=== PATIENT | male | born 1940 | race Caucasian/White ===

== ENCOUNTER → 2016-08-26 | Outpatient (CLI) | payer MEDICARE, OTHER ==
[2016-08-26 11:06] LABS: ABSOLUTE EOSINOPHILS # (AUTO) 0.4 10^3/uL (0.0-0.6); ABSOLUTE LYMPHOCYTES (AUTO) 1.8 10^3/uL (0.5-4.7); ABSOLUTE MONOCYTES (AUTO) 0.7 10^3/uL (0.1-1.4); ABSOLUTE NEUT (AUTO) 3.6 10^3/uL (1.7-8.2); BASOPHILS % (AUTO) 0.7 % (0-2); EOSINOPHILS % (AUTO) 6.8 % (0-6); HEMATOCRIT 44.7 % (37.9-51.0); HEMOGLOBIN 14.8 g/dL (13.5-17.0); HGB HCT DIFFERENCE -0.3; LYMPHOCYTES % (AUTO) 27.6 % (13-45); MEAN CORPUSCULAR HEMOGLOBIN 28.2 pg (27.0-33.4); MEAN CORPUSCULAR HGB CONC 33.1 g/dL (32.0-36.0); MEAN CORPUSCULAR VOLUME 85 fl (80-97); MONOCYTES % (AUTO) 10.6 % (3-13); RED BLOOD COUNT 5.24 10^6/uL (4.35-5.55); SEGMENTED NEUTROPHILS % (AUTO) 54.3 % (42-78); WHITE BLOOD COUNT 6.5 10^3/uL (4.0-10.5)
[2016-08-26 11:08] LABS: APPEARANCE,URINE CLEAR; BILIRUBIN,URINE NEGATIVE (NEGATIVE); GLUCOSE, URINE NEGATIVE (NEGATIVE); KETONES,URINE NEGATIVE (NEGATIVE); LEUKOCYTE ESTERASE,URINE NEGATIVE (NEGATIVE); NITRITE,URINE NEGATIVE (NEGATIVE); PROTEIN,URINE NEGATIVE (NEGATIVE); URINE SPECIFIC GRAVITY 1.013; UROBILINOGEN,URINE NEGATIVE mg/dL (<2.0)
[2016-08-26 11:41] LABS: ANION GAP 12 (5-19); BLOOD UREA NITROGEN 18 mg/dL (7-20); CALCIUM 9.8 mg/dL (8.4-10.2); CARBON DIOXIDE 34 mmol/L (22-30); CHLORIDE 100 mmol/L (98-107); CREATININE RESULT 1.04 mg/dL (0.52-1.25); GLUCOSE 103 mg/dL (75-110); POTASSIUM 3.5 mmol/L (3.6-5.0); SODIUM 146.2 mmol/L (137-145)
--- NOTE | 2016-08-26 12:22 | EKG REPORT ---
SEVERITY:- ABNORMAL ECG - SINUS RHYTHM RBBB AND LAFB NONSPECIFIC INFERIOR ST-T INVERSION. : Confirmed by: Oren Rangel MD 26-Aug-2016 12:21:35
== END ==
LOC: OD 09:31
PROVIDERS: ATTEND Orthopaedic Surgery
DX: Z01.810 Encounter for preprocedural cardiovascular examination (principal); Z01.811 Encounter for preprocedural respiratory examination; Z01.818 Encounter for other preprocedural examination; Z79.899 Other long term (current) drug therapy; M65.839 Other synovitis and tenosynovitis, unspecified forearm
CPT/HCPCS: 36415; 71020; 80048; 81001; 85025; 93005; 93010

== ENCOUNTER → 2016-11-20 | Outpatient (CLI) | payer MEDICARE, OTHER | LOC: RAD 15:34 | PROVIDERS: ATTEND Student in an Organized Health Care Education/Training Program | DX: S09.90XD Unspecified injury of head, subsequent encounter (principal); X58.XXXD Exposure to other specified factors, subsequent encounter | CPT/HCPCS: 70450 ==

== ENCOUNTER 2018-07-09 12:31 | Emergency (ER) | payer OTHER, MEDICARE ==
[2018-07-09 12:52] VITALS: BP 148/74
--- NOTE | 2018-07-09 13:23 | ER Document Report ---
ED Medical Screen (RME) - General Chief Complaint: Headache Stated Complaint: PAIN IN THE BRAIN Time Seen by Provider: 07/09/18 13:21 Notes: 81 years old male with a history of CVA presents today with 2 episodes of sensation of electric shock in the left side of the brain. Had some difficulty in walking. No numbness tingling sensation over the upper extremities or lower extremity. Denies any neck pain neck stiffness. He is on pacemaker No obvious focal neurological deficit noted TRAVEL OUTSIDE OF THE [place] IN LAST 30 DAYS: No - Related Data Allergies/Adverse Reactions: losartan [Losartan] Adverse Reaction (Verified 07/09/18 13:19) Past Medical History - Social History Chew tobacco use (# tins/day): No Frequency of alcohol use: None Drug Abuse: None - Past Medical History Cardiac Medical History: Reports: Hx Atrial Fibrillation, Hx Coronary Artery Disease, Hx Hypercholesterolemia, Hx Hypertension Denies: Hx Heart Attack Pulmonary Medical History: Denies: Hx Asthma, Hx Bronchitis, Hx COPD, Hx Pneumonia, Hx Tuberculosis Neurological Medical History: Reports: Hx Cerebrovascular Accident - WEAKNESS LEFT SIDE. Denies: Hx Seizures Endocrine Medical History: Reports: Hx Diabetes Mellitus Type 1, Hx Diabetes Mellitus Type 2, Hx Hypothyroidism Renal/ Medical History: Denies: Hx Peritoneal Dialysis GI Medical History: Reports: Hx Hiatal Hernia. Denies: Hx Hepatitis, Hx Ulcer Musculoskeltal Medical History: Reports Hx Arthritis - GENERALIZED Psychiatric Medical History: Reports: Hx Depression Infectious Medical History: Denies: Hx Hepatitis Past Surgical History: Reports: Hx Open Heart Surgery - [place], Hx Orthopedic Surgery - B knee replacements, Hx Tonsillectomy. Denies: Hx Pacemaker - Immunizations Hx Diphtheria, Pertussis, Tetanus Vaccination: Yes Physical Exam - Vital signs Vitals: Temp Pulse Resp BP Pulse Ox 97.6 F 60 18 148/74 H 96 07/09/18 12:50 07/09/18 12:50 07/09/18 12:50 07/09/18 12:50 07/09/18 12:50 Course - Vital Signs Vital signs: Temp Pulse Resp BP Pulse Ox 97.6 F 60 18 148/74 H 96 07/09/18 12:50 07/09/18 12:50 07/09/18 12:50 07/09/18 12:50 07/09/18 12:50 Doctor's Discharge - Discharge Referrals: RICH NORRIS, [Primary Care Provider] - Follow up as needed
[2018-07-09 13:58] LABS: ABSOLUTE BASOPHILS # (AUTO) 0.1 10^3/uL (0.0-0.2); ABSOLUTE EOSINOPHILS # (AUTO) 0.3 10^3/uL (0.0-0.6); ABSOLUTE LYMPHOCYTES (AUTO) 1.6 10^3/uL (0.5-4.7); ABSOLUTE MONOCYTES (AUTO) 0.6 10^3/uL (0.1-1.4); ABSOLUTE NEUT (AUTO) 4.4 10^3/uL (1.7-8.2); BASOPHILS % (AUTO) 0.8 % (0-2); EOSINOPHILS % (AUTO) 3.9 % (0-6); HEMATOCRIT 45.7 % (37.9-51.0); HEMOGLOBIN 15.4 g/dL (13.5-17.0); LYMPHOCYTES % (AUTO) 22.8 % (13-45); MEAN CORPUSCULAR HEMOGLOBIN 28.1 pg (27.0-33.4); MEAN CORPUSCULAR HGB CONC 33.8 g/dL (32.0-36.0); MEAN CORPUSCULAR VOLUME 83 fl (80-97); MONOCYTES % (AUTO) 8.2 % (3-13); PLATELET COUNT 137 10^3/uL (150-450); RED BLOOD COUNT 5.49 10^6/uL (4.35-5.55); RED CELL DISTRIBUTION WIDTH 15.6 % (11.5-14.0); SEGMENTED NEUTROPHILS % (AUTO) 64.3 % (42-78); TOTAL CELLS COUNTED % (AUTO) 100 %; WHITE BLOOD COUNT 6.8 10^3/uL (4.0-10.5)
[2018-07-09 14:04] LABS: INTERNATIONAL RATION (INR) 0.95; PROTHROMBIN TIME 13.2 SEC (11.4-15.4)
--- NOTE | 2018-07-09 14:07 | RADIOLOGY REPORT (SQ) ---
EXAM DESCRIPTION: CT HEAD WITHOUT COMPLETED DATE/TIME: 07/09/2018 1:58 pm REASON FOR STUDY: Headache possible stroke COMPARISON: 11/20/2016 TECHNIQUE: Axial images acquired through the brain without intravenous contrast. Images reviewed wi th bone, brain and subdural windows. Additional sagittal and coronal reconstructions were generated. Images stored on PACS. All CT scanners at this facility use dose modulation, iterative reconstruction, and/or weight based d osing when appropriate to reduce radiation dose to as low as reasonably achievable (ALARA). [facility]: Dose Right [facility]: CareDose [facility]: Dose Right [facility]: Teradose 4D [facility]: [employer] RADIATION DOSE: CT Rad equipment meets quality standard of care and radiation dose reduction techniq ues were employed. CTDIvol: 53.2 mGy. DLP: 1044 mGy-cm. mGy. LIMITATIONS: None. FINDINGS: VENTRICLES: Prominent. CEREBRUM: No masses. No hemorrhage. No midline shift. Areas of low density in the white matter mos t likely due to chronic micro-vascular ischemic change. No evidence for acute infarction. CEREBELLUM: No masses. No hemorrhage. No alteration of density. No evidence for acute infarction. EXTRAAXIAL SPACES: Mild age-related involutional change. No fluid collections. No masses. ORBITS AND GLOBE: No intra- or extraconal masses. Normal contour of globe without masses. CALVARIUM: No fracture. PARANASAL SINUSES: No fluid or mucosal thickening. SOFT TISSUES: No mass or hematoma. OTHER: No other significant finding. IMPRESSION: MILD CHRONIC CHANGES OF ATROPHY AND MICROVASCULAR ISCHEMIA. NO ACUTE PROCESS. EVIDENCE OF ACUTE STROKE: NO. TECHNICAL DOCUMENTATION: JOB ID: [id number] Quality ID # [id number]: Final reports with documentation of one or more dose reduction techniques (e.g., Au tomated exposure control, adjustment of the mA and/or kV according to patient size, use of iterative reconstruction technique) 2010 [employer]- All Rights Reserved Reading location - IP/workstation name: [email or web address]
[2018-07-09 14:14] LABS: ALANINE AMINOTRANSFERASE 20 U/L (21-72); ALBUMIN 4.3 g/dL (3.5-5.0); ALKALINE PHOSPHATASE 73 U/L (38-126); ANION GAP 11 (5-19); ASPARTATE AMINO TRANSFERASE 21 U/L (17-59); BILIRUBIN,DIRECT 0.2 mg/dL (0.0-0.4); BILIRUBIN,TOTAL 0.6 mg/dL (0.2-1.3); BLOOD UREA NITROGEN 16 mg/dL (7-20); CARBON DIOXIDE 35 mmol/L (22-30); CHLORIDE 98 mmol/L (98-107); GLUCOSE 165 mg/dL (75-110); POTASSIUM 3.6 mmol/L (3.6-5.0); SODIUM 144.4 mmol/L (137-145); TOTAL PROTEIN 7.7 g/dL (6.3-8.2)
--- NOTE | 2018-07-09 14:36 | ER Document Report ---
ED General - General Chief Complaint: Headache Stated Complaint: PAIN IN THE BRAIN Time Seen by Provider: 07/09/18 13:21 Mode of Arrival: Ambulatory Information source: Patient TRAVEL OUTSIDE OF THE [place] IN LAST 30 DAYS: No - HPI Patient complains to provider of: Electric shock sensation to head Onset/Duration: Sudden Associated symptoms: None Exacerbated by: Denies Relieved by: Denies Notes: Patient is a 78-year-old male presenting to the emergency room today complaining of electric shock sensation to the brain that occurred twice over the past week, he states it felt like when he was accidentally defibrillated in the past, however it started the top of his head and shot down the right side of his face, afterwards he states he feels slightly groggy but denies any other symptoms, he has no chest pain or shortness of breath and no symptoms from the neck down, he denies any vision changes, no nausea or vomiting, and denies any neck pain - Related Data Allergies/Adverse Reactions: losartan [Losartan] Adverse Reaction (Verified 07/09/18 13:19) Past Medical History - General Information source: Patient - Social History Smoking Status: Former Smoker Chew tobacco use (# tins/day): No Frequency of alcohol use: None Drug Abuse: None Family History: Reviewed & Not Pertinent Patient has suicidal ideation: No Patient has homicidal ideation: No - Past Medical History Cardiac Medical History: Reports: Hx Atrial Fibrillation, Hx Coronary Artery Disease, Hx Hypercholesterolemia, Hx Hypertension Denies: Hx Heart Attack Pulmonary Medical History: Denies: Hx Asthma, Hx Bronchitis, Hx COPD, Hx Pneumonia, Hx Tuberculosis Neurological Medical History: Reports: Hx Cerebrovascular Accident - WEAKNESS LEFT SIDE. Denies: Hx Seizures Endocrine Medical History: Reports: Hx Diabetes Mellitus Type 1, Hx Diabetes Mellitus Type 2, Hx Hypothyroidism Renal/ Medical History: Denies: Hx Peritoneal Dialysis GI Medical History: Reports: Hx Hiatal Hernia. Denies: Hx Hepatitis, Hx Ulcer Musculoskeletal Medical History: Reports Hx Arthritis - GENERALIZED Psychiatric Medical History: Reports: Hx Depression Infectious Medical History: Denies: Hx Hepatitis Past Surgical History: Reports: Hx Open Heart Surgery - [place], Hx Orthopedic Surgery - B knee replacements, Hx Tonsillectomy. Denies: Hx Pacemaker - Immunizations Hx Diphtheria, Pertussis, Tetanus Vaccination: Yes Hx Pneumococcal Vaccination: 04/16/12 Review of Systems - Review of Systems Constitutional: No symptoms reported EENT: No symptoms reported Cardiovascular: No symptoms reported Respiratory: No symptoms reported Gastrointestinal: No symptoms reported Genitourinary: No symptoms reported Male Genitourinary: No symptoms reported Musculoskeletal: No symptoms reported Skin: No symptoms reported Hematologic/Lymphatic: No symptoms reported Neurological/Psychological: See HPI -: Yes All other systems reviewed and negative Physical Exam - Vital signs Vitals: Temp Pulse Resp BP Pulse Ox 97.6 F 60 18 148/74 H 96 07/09/18 12:50 07/09/18 12:50 07/09/18 12:50 07/09/18 12:50 07/09/18 12:50 Interpretation: Normal - General General appearance: Appears well, Alert - HEENT Head: Normocephalic, Atraumatic Eyes: Normal Pupils: PERRL - Respiratory Respiratory status: No respiratory distress Chest status: Nontender Breath sounds: Normal Chest palpation: Normal - Cardiovascular Rhythm: Regular Heart sounds: Normal auscultation Murmur: No - Abdominal Inspection: Normal Distension: No distension Bowel sounds: Normal Tenderness: Nontender Organomegaly: No organomegaly - Back Back: Normal, Nontender - Extremities General upper extremity: Normal inspection, Nontender, Normal color, Normal ROM , Normal temperature General lower extremity: Normal inspection, Nontender, Normal color, Normal ROM , Normal temperature, Normal weight bearing. No: Taylor's sign - Neurological Neuro grossly intact: Yes Cognition: Normal Orientation: AAOx4 [place]hoe Coma Scale Eye Opening: Spontaneous [place] Coma Scale Verbal: Oriented [place] Coma Scale Motor: Obeys Commands Ivanhoe Coma Scale Total: 15 Speech: Normal Motor strength normal: LUE, RUE, LLE, RLE Sensory: Normal - Psychological Associated symptoms: Normal affect, Normal mood - Skin Skin Temperature: Warm Skin Moisture: Dry Skin Color: Normal Course - Re-evaluation Re-evalutation: 07/09/18 15:19 Lab and imaging findings discussed at bedside which are unremarkable, I did add an ESR and CRP and a and inform the patient that I would call him with those results later if they were grossly abnormal and required immediate attention, otherwise patient was discharged with instructions for follow-up and advised to return if any additional concerns, patient acknowledges understanding and agreement with this plan - Vital Signs Vital signs: Temp Pulse Resp BP Pulse Ox 97.6 F 60 18 148/74 H 96 07/09/18 12:50 07/09/18 12:50 07/09/18 12:50 07/09/18 12:50 07/09/18 12:50 - Laboratory Result Diagrams: 07/09/18 13:46 07/09/18 13:46 Laboratory results interpreted by me: 07/09/18 07/09/18 07/09/18 13:46 13:46 13:46 RDW 15.6 H Plt Count 137 L Carbon Dioxide 35 H Glucose 165 H ALT 20 L C-Reactive Protein 18.1 H - Diagnostic Test Radiology reviewed: Image reviewed, Reports reviewed Discharge - Discharge Clinical Impression: Head pain Condition: Stable Disposition: HOME, SELF-CARE Instructions: Neuralgia ([facility]), Neurologist, Trigeminal Neuralgia ([facility]) Additional Instructions: Follow up with your primary care provider and a neurologist in one to 2 days. Return to the emergency room immediately if symptoms worsen or any additional concerns. Referrals: RICH NORRIS, [Primary Care Provider] - Follow up as needed
== END 2018-07-09 15:29 | disposition home or self-care (01) ==
LOC: ER 12:31
DX: R51 Headache (principal); Z87.891 Personal history of nicotine dependence; I25.10 Atherosclerotic heart disease of native coronary artery without angina pectoris; I10 Essential (primary) hypertension; E11.9 Type 2 diabetes mellitus without complications
CPT/HCPCS: 36415; 70450; 80053; 85025; 85610; 85652; 86140; 99284

== ENCOUNTER 2018-08-26 16:31 | Emergency (ER) | payer OTHER, MEDICARE ==
[2018-08-26] MEDS ORDERED: OXYMETAZOLINE HCL 0.05% NASAL SPRAY 15 ML BOTTLE NASL ONE (17:10)
--- NOTE | 2018-08-26 17:12 | ER Document Report ---
ED Medical Screen (RME) - General Chief Complaint: Nose Bleed Stated Complaint: NOSE BLEED Time Seen by Provider: 08/26/18 17:05 Mode of Arrival: Wheelchair Information source: Patient Notes: Patient is a 78-year-old male who presents with chief complaint of a nosebleed. Patient reports bleeding to the right nare started several hours prior to arrival. He denies any trauma to the area. He states he takes a baby aspirin 81 mg daily but denies any other blood thinning medications. Denies history of nosebleeds other than as a child. He does state that his blood pressure has been elevated lately, he saw his doctor this morning and had significantly elevated blood pressure. Patient currently has a cotton ball in the right nare. There is a small trickle of blood to the patient's posterior pharynx. Patient is blood pressure is currently elevated at 188 systolic. I have greeted and performed a rapid initial assessment of this patient. A comprehensive ED assessment and evaluation of the patient, analysis of test results and completion of the medical decision making process will be conducted by additional ED providers. Dictation of this chart was performed using voice recognition software; therefore, there may be some unintended grammatical errors. TRAVEL OUTSIDE OF THE [place] IN LAST 30 DAYS: No - Related Data Allergies/Adverse Reactions: amlodipine Allergy (Verified 08/26/18 17:03) losartan [Losartan] Adverse Reaction (Verified 08/26/18 16:38) Past Medical History - Social History Frequency of alcohol use: None Drug Abuse: None - Past Medical History Cardiac Medical History: Reports: Hx Atrial Fibrillation, Hx Coronary Artery Disease, Hx Hypercholesterolemia, Hx Hypertension Denies: Hx Heart Attack Pulmonary Medical History: Denies: Hx Asthma, Hx Bronchitis, Hx COPD, Hx Pneumonia, Hx Tuberculosis Neurological Medical History: Reports: Hx Cerebrovascular Accident - WEAKNESS LEFT SIDE. Denies: Hx Seizures Endocrine Medical History: Reports: Hx Diabetes Mellitus Type 1, Hx Diabetes Mellitus Type 2, Hx Hypothyroidism Renal/ Medical History: Denies: Hx Peritoneal Dialysis GI Medical History: Reports: Hx Hiatal Hernia. Denies: Hx Hepatitis, Hx Ulcer Musculoskeltal Medical History: Reports Hx Arthritis - GENERALIZED Psychiatric Medical History: Reports: Hx Depression Infectious Medical History: Denies: Hx Hepatitis Past Surgical History: Reports: Hx Appendectomy, Hx Cardiac Surgery - pacemaker, Hx Open Heart Surgery - [place], Hx Orthopedic Surgery - B knee replacements, Hx Tonsillectomy. Denies: Hx Pacemaker - Immunizations Hx Diphtheria, Pertussis, Tetanus Vaccination: Yes Physical Exam - Vital signs Vitals: Temp Pulse Resp BP Pulse Ox 97.7 F 62 18 188/90 H 96 08/26/18 16:46 08/26/18 16:46 08/26/18 16:46 08/26/18 16:46 08/26/18 16:46 Course - Vital Signs Vital signs: Temp Pulse Resp BP Pulse Ox 97.7 F 62 18 188/90 H 96 08/26/18 16:46 08/26/18 16:46 08/26/18 16:46 08/26/18 16:46 08/26/18 16:46 Doctor's Discharge - Discharge Referrals: RICH NORRIS DO [Primary Care Provider] - Follow up as needed
[2018-08-26] MEDS ORDERED: HYDROCHLOROTHIAZIDE 25 MG TABLET PO ONE (18:14)
[2018-08-26] MEDS ORDERED: LOSARTAN POTASSIUM 25 MG TABLET PO ONE (19:51)
--- NOTE | 2018-08-26 20:28 | ER Document Report ---
ED General - General Mode of Arrival: Wheelchair Information source: Patient TRAVEL OUTSIDE OF THE [place] IN LAST 30 DAYS: No - General Chief Complaint: Nose Bleed Stated Complaint: NOSE BLEED Time Seen by Provider: 08/26/18 17:05 Notes: Patient is a 78 year old male with HTN, hyperlipidemia, Afib, a pacemaker defibrillator, type 2 diabetes, and a history of a stroke presents to the emergency department complaining of a nosebleed. Patient states he began to have copious amounts of blood coming from his right nostril today and a minimal amount coming from his left nostril and he proceeded to place a cotton ball in his right nostril. He states he has not had a nosebleed since he was in high school. Patient also complains of a headache which he attributes to his elevated blood pressure further stating he has not had is Losartan HCTZ in a few days. Patient states the headache was onset a few weeks ago and is getting better. Patient denies blurry vision, numbness or tingling sensations, difficulty swallowing or difficulty seeing. Patient is on 81 mg of aspirin. ([facility] JO CHURCHILL) - Related Data Allergies/Adverse Reactions: amlodipine Allergy (Verified 08/26/18 17:03) losartan [Losartan] Adverse Reaction (Verified 08/26/18 16:38) Past Medical History - General Information source: Patient - Social History Smoking Status: Never Smoker Frequency of alcohol use: None Drug Abuse: None Family History: Reviewed & Not Pertinent Patient has suicidal ideation: No Patient has homicidal ideation: No - Past Medical History Cardiac Medical History: Reports: Hx Atrial Fibrillation, Hx Coronary Artery Disease, Hx Hypercholesterolemia, Hx Hypertension Neurological Medical History: Reports: Hx Cerebrovascular Accident - WEAKNESS LEFT SIDE Endocrine Medical History: Reports: Hx Diabetes Mellitus Type 1, Hx Diabetes Mellitus Type 2, Hx Hypothyroidism GI Medical History: Reports: Hx Hiatal Hernia Musculoskeletal Medical History: Reports Hx Arthritis - GENERALIZED Psychiatric Medical History: Reports: Hx Depression Past Surgical History: Reports: Hx Appendectomy, Hx Cardiac Surgery - pacemaker, Hx Open Heart Surgery - [place], Hx Orthopedic Surgery - B knee replacements, Hx Tonsillectomy - Immunizations Hx Diphtheria, Pertussis, Tetanus Vaccination: Yes Hx Pneumococcal Vaccination: 04/16/12 Review of Systems - Review of Systems Constitutional: No symptoms reported EENT: See HPI Cardiovascular: No symptoms reported Respiratory: No symptoms reported Gastrointestinal: No symptoms reported Genitourinary: No symptoms reported Male Genitourinary: No symptoms reported Musculoskeletal: No symptoms reported Skin: No symptoms reported Hematologic/Lymphatic: See HPI Neurological/Psychological: No symptoms reported -: Yes All other systems reviewed and negative Physical Exam - Vital signs Vitals: Temp Pulse Resp BP Pulse Ox 97.7 F 62 18 188/90 H 96 08/26/18 16:46 08/26/18 16:46 08/26/18 16:46 08/26/18 16:46 08/26/18 16:46 - Notes Notes: GENERAL: Alert, interacts well. No acute distress. HEAD: Normocephalic, atraumatic. EYES: Pupils equal, round, and reactive to light. Extraocular movements intact. ENT: Oral mucosa moist, tongue midline. Small traces of blood in the left nostril, no active bleeding. Red blood and a cotton ball in the right nostril, no signs of active bleeding. Small amount of swelling to the right nostril. No signs of blood in the posterior oropharynx. NECK: Full range of motion. Supple. Trachea midline. LUNGS: Clear to auscultation bilaterally, no wheezes, rales, or rhonchi. No res piratory distress. HEART: Regular rate and rhythm. No murmurs, gallops, or rubs. ABDOMEN: Soft, non-tender. Non-distended. Bowel sounds present in all 4 quadrants. EXTREMITIES: Moves all 4 extremities spontaneously. NEUROLOGICAL: Alert and oriented x3. Normal speech. PSYCH: Normal affect, normal mood. SKIN: Warm, dry, normal turgor. No rashes or lesions noted. (MARY JO CHURCHILL) Course - Re-evaluation Re-evalutation: 08/26/18 20:28 Cotton ball was removed from the nose, there is no active bleeding, clot was removed from the nose as well, very small bump was noted within the right nostril and the nasal mucosa with in half a centimeter of the opening to the nostril. No active bleeding was noted. Patient was observed for the next 30 minutes, there continues to be no bleeding. No need for other intervention. Patient is discharged to home. (CHIDI CHA) - Vital Signs Vital signs: Temp Pulse Resp BP Pulse Ox 97.9 F 60 18 197/100 H 97 08/26/18 19:37 08/26/18 19:37 08/26/18 19:37 08/26/18 19:37 08/26/18 19:37 Discharge - Discharge Clinical Impression: Epistaxis Condition: Stable Disposition: HOME, SELF-CARE Additional Instructions: Nosebleed Instructions There is a significant chance of re-bleeding following a nosebleed. Proper care makes this less likely. Do not touch the nose for 24 hours. Do not blow the nose forcefully for one week. After 24 hours, gently apply Vaseline ointment to both nostrils with the tip of a finger, three times a day, for one week. It's normal to have a bloody mucous discharge for a few days. If active bleeding recurs, blow all the blood from the nose, then sit quietly and pinch the nose as firmly as possible for 15 minutes. If this does not stop the bleeding, return for further care. Humidity in the bedroom, and petroleum jelly applied to the nostrils at night may help. Referrals: RICH NORRIS, [Primary Care Provider] - Follow up as needed Scribe Attestation: 08/27/18 06:33 I personally performed the services described in the documentation, reviewed and edited the documentation which was dictated to the scribe in my presence, and it accurately records my words and actions. (CHIDI CHA) Scribe Documentation - Scribe Written by Arnaud:: Arnaud Stewart, 08/26/2017 20:52 acting as scribe for :: Carlos
[2018-08-26 20:41] VITALS: BP 197/100
== END 2018-08-26 20:41 | disposition home or self-care (01) ==
LOC: ER 16:31
DX: R04.0 Epistaxis (principal); I10 Essential (primary) hypertension; I48.91 Unspecified atrial fibrillation; E11.9 Type 2 diabetes mellitus without complications; Z95.810 Presence of automatic (implantable) cardiac defibrillator; Z96.653 Presence of artificial knee joint, bilateral; I69.354 Hemiplegia and hemiparesis following cerebral infarction affecting left non-dominant side
CPT/HCPCS: 99283

== ENCOUNTER 2018-08-27 15:19 | Observation (INO) | payer OTHER, MEDICARE ==
[2018-08-27 15:43] LABS: ABSOLUTE BASOPHILS # (AUTO) 0.1 10^3/uL (0.0-0.2); ABSOLUTE EOSINOPHILS # (AUTO) 0.3 10^3/uL (0.0-0.6); ABSOLUTE LYMPHOCYTES (AUTO) 2.1 10^3/uL (0.5-4.7); ABSOLUTE MONOCYTES (AUTO) 0.8 10^3/uL (0.1-1.4); ABSOLUTE NEUT (AUTO) 3.4 10^3/uL (1.7-8.2); BASOPHILS % (AUTO) 0.8 % (0-2); HEMATOCRIT 44.2 % (37.9-51.0); HEMOGLOBIN 14.9 g/dL (13.5-17.0); LYMPHOCYTES % (AUTO) 32.1 % (13-45); MEAN CORPUSCULAR HGB CONC 33.6 g/dL (32.0-36.0); MEAN CORPUSCULAR VOLUME 83 fl (80-97); MONOCYTES % (AUTO) 11.8 % (3-13); PLATELET COUNT 132 10^3/uL (150-450); RED BLOOD COUNT 5.31 10^6/uL (4.35-5.55); RED CELL DISTRIBUTION WIDTH 15.3 % (11.5-14.0); SEGMENTED NEUTROPHILS % (AUTO) 51.3 % (42-78); TOTAL CELLS COUNTED % (AUTO) 100 %; WHITE BLOOD COUNT 6.5 10^3/uL (4.0-10.5)
[2018-08-27 15:47] LABS: INTERNATIONAL RATION (INR) 0.94; PROTHROMBIN TIME 13.1 SEC (11.4-15.4)
[2018-08-27 15:48] LABS: PARTIAL THROMBOPLASTIN TIME 27.9 SEC (23.5-35.8)
--- NOTE | 2018-08-27 15:49 | RADIOLOGY REPORT (SQ) ---
EXAM DESCRIPTION: CT HEAD WITHOUT COMPLETED DATE/TIME: 08/27/2018 3:36 pm REASON FOR STUDY: t1 stroke alert COMPARISON: 07/09/2018. TECHNIQUE: Axial images acquired through the brain without intravenous contrast. Images reviewed wi th bone, brain and subdural windows. Additional sagittal and coronal reconstructions were generated. Images stored on PACS. All CT scanners at this facility use dose modulation, iterative reconstruction, and/or weight based d osing when appropriate to reduce radiation dose to as low as reasonably achievable (ALARA). [facility]: Dose Right [facility]: CareDose [facility]: Dose Right [facility]: Teradose 4D [facility]: [employer] RADIATION DOSE: CT Rad equipment meets quality standard of care and radiation dose reduction techniq ues were employed. CTDIvol: 53.2 mGy. DLP: 1044 mGy-cm. mGy. LIMITATIONS: None. FINDINGS: VENTRICLES: Prominent. CEREBRUM: No masses. No hemorrhage. No midline shift. Areas of low density in the white matter mos t likely due to chronic micro-vascular ischemic change. No evidence for acute infarction. CEREBELLUM: No masses. No hemorrhage. No alteration of density. No evidence for acute infarction. EXTRAAXIAL SPACES: Mild age-related involutional change. No fluid collections. No masses. ORBITS AND GLOBE: No intra- or extraconal masses. Normal contour of globe without masses. CALVARIUM: No fracture. PARANASAL SINUSES: No fluid or mucosal thickening. SOFT TISSUES: No mass or hematoma. OTHER: No other significant finding. IMPRESSION: MILD CHRONIC CHANGES OF ATROPHY AND MICROVASCULAR ISCHEMIA. NO ACUTE PROCESS. EVIDENCE OF ACUTE STROKE: NO. COMMENT: Pertinent positive or negative findings of the imaging study reported as a CRITICAL EXAM patrick LOVELACE DO at15:41 on 08/27/2018. Category of Critical Exam: STROKE ALERT. TECHNICAL DOCUMENTATION: JOB ID: [id number] Quality ID # [id number]: Final reports with documentation of one or more dose reduction techniques (e.g., Au tomated exposure control, adjustment of the mA and/or kV according to patient size, use of iterative reconstruction technique) 2010 [employer]- All Rights Reserved Reading location - IP/workstation name: [facility]
--- NOTE | 2018-08-27 15:50 | RADIOLOGY REPORT (SQ) ---
EXAM DESCRIPTION: CHEST SINGLE VIEW COMPLETED DATE/TIME: 08/27/2018 3:38 pm REASON FOR STUDY: t1 stroke alert COMPARISON: 08/26/2016. NUMBER OF VIEWS: One view. TECHNIQUE: Single frontal radiographic view of the chest acquired. LIMITATIONS: None. FINDINGS: LUNGS AND PLEURA: No opacities, masses or pneumothorax. No pleural effusion. MEDIASTINUM AND HILAR STRUCTURES: No masses. Contour normal. HEART AND VASCULAR STRUCTURES: Heart enlarged without failure. Normal vasculature. BONES: No acute findings. HARDWARE: Pacemaker. OTHER: No other significant finding. IMPRESSION: HEART ENLARGED WITHOUT FAILURE. NO OTHER SIGNIFICANT RADIOGRAPHIC FINDING IN THE CHEST. TECHNICAL DOCUMENTATION: JOB ID: [id number] [employer]- All Rights Reserved Reading location - IP/workstation name: [facility]
[2018-08-27] MEDS ORDERED: ASPIRIN 81 MG TABLET, CHEWABLE PO ONE (16:03)
--- NOTE | 2018-08-27 16:06 | ER Document Report ---
ED General - General Chief Complaint: S/S of Possible Stroke Stated Complaint: POSSIBLE STROKE Time Seen by Provider: 08/27/18 15:34 Mode of Arrival: Ambulatory Information source: Patient Notes: 78-year-old male with atrial fibrillation, SVT, diabetes, hyperlipidemia, hypertension presents via EMS with complaint of slurred speech. is at the bedside and states that approximately 5 hours prior to arrival they were buying a car when the patient certainly had an acute onset of slurred speech. She reports that the patient "sounded drunk". Patient slurred speech lasted approximately 5 hours and resolved just prior to arrival. Patient reports previous "mini stroke in the past. He denies any recent illness, chest pain, shortness of breath. TRAVEL OUTSIDE OF THE [place] IN LAST 30 DAYS: No - HPI Onset: Just prior to arrival Onset/Duration: Sudden, Gone Quality of pain: No pain Severity: None Associated symptoms: None. denies: Headache, Nausea, Vomiting, Shortness of breath Exacerbated by: Denies Relieved by: Denies Similar symptoms previously: Yes Recently seen / treated by doctor: No - Related Data Allergies/Adverse Reactions: amlodipine Allergy (Verified 08/27/18 16:17) lisinopril Allergy (Verified 08/27/18 16:17) losartan [Losartan] Adverse Reaction (Verified 08/27/18 16:17) Past Medical History - General Information source: Patient, [facility] Records - Social History Smoking Status: Never Smoker Frequency of alcohol use: None Drug Abuse: None Lives with: Spouse/Significant other Family History: Reviewed & Not Pertinent Patient has suicidal ideation: No Patient has homicidal ideation: No - Past Medical History Cardiac Medical History: Reports: Hx Atrial Fibrillation, Hx Coronary Artery Disease, Hx Hypercholesterolemia, Hx Hypertension Denies: Hx Heart Attack Pulmonary Medical History: Denies: Hx Asthma, Hx Bronchitis, Hx COPD, Hx Pneumonia, Hx Tuberculosis Neurological Medical History: Reports: Hx Cerebrovascular Accident - WEAKNESS LEFT SIDE. Denies: Hx Seizures Endocrine Medical History: Reports: Hx Diabetes Mellitus Type 1, Hx Diabetes Mellitus Type 2, Hx Hypothyroidism Renal/ Medical History: Denies: Hx Peritoneal Dialysis GI Medical History: Reports: Hx Hiatal Hernia. Denies: Hx Hepatitis, Hx Ulcer Musculoskeletal Medical History: Reports Hx Arthritis - GENERALIZED Psychiatric Medical History: Reports: Hx Depression Infectious Medical History: Denies: Hx Hepatitis Past Surgical History: Reports: Hx Appendectomy, Hx Cardiac Surgery - pacemaker, Hx Open Heart Surgery - ABLATION, Hx Orthopedic Surgery - B knee replacements, Hx Tonsillectomy. Denies: Hx Pacemaker - Immunizations Hx Diphtheria, Pertussis, Tetanus Vaccination: Yes Hx Pneumococcal Vaccination: 04/16/12 Review of Systems - Review of Systems Notes: REVIEW OF SYSTEMS: CONSTITUTIONAL : Denies fever, chills, or sweats. Denies recent illness. Denies weight loss, recent hospitalizations. EENT: Denies visual changes, eye pain. Denies sore throat, oral lesions, difficulty swallowing. CARDIOVASCULAR: Denies chest pain. Denies palpitations. Denies lower extremity edema. RESPIRATORY: Denies cough. Denies shortness of breath, wheezing. GASTROINTESTINAL: Denies abdominal pain or distention. Denies nausea, vomiting, or diarrhea. Denies blood in vomitus, stools, or per rectum. Denies black, tarry stools. Denies constipation. GENITOURINARY: Denies difficulty urinating, painful urination, frequency, blood in urine, testicular pain or penile discharge. MUSCULOSKELETAL: Denies back or neck pain or stiffness. Denies joint pain or swelling. SKIN: Denies rash, lesions or sores. HEMATOLOGIC : Denies easy bruising or bleeding. LYMPHATIC: Denies swollen glands. NEUROLOGICAL: Denies confusion or altered mental status. Denies loss of consciousness. Denies dizziness or lightheadedness. Denies headache. Denies weakness or paralysis. Denies problems difficulty with ambulation, Denies sensory loss, numbness, or tingling. Denies seizures. PSYCHIATRIC: Denies anxiety or stress. Denies depression, suicidal ideation, or Physical Exam - Vital signs Vitals: Pulse Resp BP Pulse Ox 60 18 195/110 H 96 08/27/18 15:34 08/27/18 15:34 08/27/18 15:34 08/27/18 15:34 Interpretation: Hypertensive. No: Febrile - Notes Notes: PHYSICAL EXAMINATION: GENERAL: Well-appearing, well-nourished and in no acute distress. HEAD: Atraumatic, normocephalic. EYES: Pupils equal round and reactive to light, extraocular movements intact, sclera anicteric, conjunctiva are normal. ENT: Nares patent, oropharynx clear without exudates. Moist mucous membranes. NECK: Normal range of motion, supple without lymphadenopathy LUNGS: Breath sounds clear to auscultation bilaterally and equal. No wheezes rales or rhonchi. HEART: Regular rate and rhythm without murmurs ABDOMEN: Soft, nontender, nondistended abdomen. No guarding, no rebound. No m asses appreciated. Musculoskeletal: Normal range of motion, no pitting or edema. No cyanosis. NEUROLOGICAL: Cranial nerves grossly intact. Normal speech, normal gait. Normal sensory, motor exams. NIH of 0 PSYCH: Normal mood, normal affect. SKIN: Warm, Dry, normal turgor, no rashes or lesions noted. Course - Re-evaluation Re-evalutation: 08/27/18 17:41 Laboratory 08/27/18 08/27/18 08/27/18 15:15 15:15 15:15 WBC 6.5 RBC 5.31 Hgb 14.9 Hct 44.2 MCV 83 MCH 28.0 MCHC 33.6 RDW 15.3 H Plt Count 132 L Seg Neutrophils % 51.3 Lymphocytes % 32.1 Monocytes % 11.8 Eosinophils % 4.0 Basophils % 0.8 Absolute Neutrophils 3.4 Absolute Lymphocytes 2.1 Absolute Monocytes 0.8 Absolute Eosinophils 0.3 Absolute Basophils 0.1 PT 13.1 INR 0.94 APTT 27.9 Sodium 142.1 Potassium 3.8 Chloride 100 Carbon Dioxide 31 H Anion Gap 11 BUN 16 Creatinine 1.06 Est GFR ( Amer) > 60 Est GFR (Non-Af Amer) > 60 Glucose 130 H Calcium 9.7 Total Bilirubin 0.6 Direct Bilirubin 0.3 Neonat Total Bilirubin Not Reportable Neonat Direct Bilirubin Not Reportable Neonat Indirect Bili Not Reportable AST 28 ALT 21 Alkaline Phosphatase 79 Creatine Kinase 56 CK-MB (CK-2) Troponin I Total Protein 7.9 Albumin 4.7 08/27/18 15:15 WBC RBC Hgb Hct MCV MCH MCHC RDW Plt Count Seg Neutrophils % Lymphocytes % Monocytes % Eosinophils % Basophils % Absolute Neutrophils Absolute Lymphocytes Absolute Monocytes Absolute Eosinophils Absolute Basophils PT INR APTT Sodium Potassium Chloride Carbon Dioxide Anion Gap BUN Creatinine Est GFR ( Amer) Est GFR (Non-Af Amer) Glucose Calcium Total Bilirubin Direct Bilirubin Neonat Total Bilirubin Neonat Direct Bilirubin Neonat Indirect Bili AST ALT Alkaline Phosphatase Creatine Kinase CK-MB (CK-2) 1.29 Troponin I 0.014 Total Protein Albumin Chest X-Ray 08/27/18 15:21 IMPRESSION: HEART ENLARGED WITHOUT FAILURE. NO OTHER SIGNIFICANT RADIOGRAPHIC FINDING IN THE CHEST. Head CT 08/27/18 15:21 IMPRESSION: MILD CHRONIC CHANGES OF ATROPHY AND MICROVASCULAR ISCHEMIA. NO ACUTE PROCESS. EVIDENCE OF ACUTE STROKE: NO. Head CTA 08/27/18 15:42 IMPRESSION: Suboptimal CTA of the [place]. The study is grossly normal. Neck CTA 08/27/18 15:42 IMPRESSION: Very limited examination of the cervical vasculature secondary to poor contrast bolus. Within this limitation, there is no gross abnormality of the cervical vasculature, which appears patent to the skullbase without sign ificant calcific atherosclerosis. Consider repeat examination or MR to further evaluate given technical limitation of this examination. Temp Pulse Resp BP Pulse Ox 98.1 F 63 18 176/107 H 94 08/27/18 16:00 08/27/18 16:00 08/27/18 16:38 08/27/18 16:38 08/27/18 16:38 78-year-old male presents via EMS after 4 hours of slurred mumbled speech. Upon arrival to the emergency department patient is back to baseline per the who witnessed the onset approximately 5 hours prior to arrival. Vital signs reviewed upon arrival patient is hypertensive but afebrile. NIH was performed in 0. CT of the head showed microvascular ischemia. CTA of the head and neck were suboptimal but grossly normal. Patient did receive aspirin. Spoke to patient regarding admission and he is agreeable. Dr. Janny mcmahan. CBC, CMP, cardiac enzymes within normal limits. Patient has been accepted for admission by Dr. Soliman 08/27/18 22:28 - Vital Signs Vital signs: Temp Pulse Resp BP Pulse Ox 97.9 F 63 20 170/91 H 90 L 08/27/18 19:36 08/27/18 16:00 08/27/18 21:16 08/27/18 21:16 08/27/18 21:16 - Laboratory Result Diagrams: 08/27/18 15:15 08/27/18 15:15 Laboratory results interpreted by me: 08/27/18 08/27/18 08/27/18 15:15 15:15 15:15 RDW 15.3 H Plt Count 132 L Carbon Dioxide 31 H Glucose 130 H Triglycerides 399 H VLDL Cholesterol 79.8 H HDL Cholesterol 26 L - Diagnostic Test Radiology reviewed: Image reviewed, Reports reviewed - EKG Interpretation by Me EKG shows normal: Sinus rhythm Rate: Normal Rhythm: NSR Osmond/QRS: RBBB, LAHB/LAFB When compared to previous EKG there are: No significant change Discharge - Discharge Clinical Impression: TIA (transient ischemic attack), History of diabetes mellitus, type II, History of atrial fibrillation Hypertension Qualifiers: Hypertension type: unspecified Qualified Code(s): I10 - Essential (primary) hypertension Condition: Good Disposition: ADMITTED INPATIENT Admitting Provider: Hospitalist Unit Admitted: [facility]
[2018-08-27 16:09] LABS: ALANINE AMINOTRANSFERASE 21 U/L (21-72); ALBUMIN 4.7 g/dL (3.5-5.0); ALKALINE PHOSPHATASE 79 U/L (38-126); ANION GAP 11 (5-19); ASPARTATE AMINO TRANSFERASE 28 U/L (17-59); BILIRUBIN,DIRECT 0.3 mg/dL (0.0-0.4); BILIRUBIN,TOTAL 0.6 mg/dL (0.2-1.3); BLOOD UREA NITROGEN 16 mg/dL (7-20); CALCIUM 9.7 mg/dL (8.4-10.2); CARBON DIOXIDE 31 mmol/L (22-30); CHLORIDE 100 mmol/L (98-107); CREATINE KINASE 56 U/L (55-170); GLUCOSE 130 mg/dL (75-110); POTASSIUM 3.8 mmol/L (3.6-5.0); SODIUM 142.1 mmol/L (137-145); TOTAL PROTEIN 7.9 g/dL (6.3-8.2)
[2018-08-27 16:21] LABS: CREATINE KINASE MB 1.29 ng/mL (<4.55); TROPONIN I 0.014 ng/mL
--- NOTE | 2018-08-27 17:26 | RADIOLOGY REPORT (SQ) ---
EXAM DESCRIPTION: CTA HEAD COMPLETED DATE/TIME: 08/27/2018 5:10 pm REASON FOR STUDY: surred speech COMPARISON: None. TECHNIQUE: Post IV contrast scanning, thin section axial imaging through the brain to evaluate the a rterial structures. Source and MIP images are saved and reviewed on PACS. Advanced 3D imaging as volume-rendering, MIPs, SSD performed? yes All CT scanners at this facility use dose modulation, iterative reconstruction, and/or weight based d osing when appropriate to reduce radiation dose to as low as reasonably achievable (ALARA). [facility]: Dose Right [facility]: CareDose [facility]: Dose Right [facility]: Teradose 4D [facility]: [employer] CONTRAST TYPE AND DOSE: 70 mL Omnipaque 350- low osmolar. RENAL FUNCTION: BUN 16 creatinine 1.06 LIMITATIONS: Sub optimal opacification of the vessels. Dental artifact. FINDINGS: [place]: The anterior, middle, posterior cerebral arteries are all patent. No ev idence of aneurysm or focal stenosis. POSTERIOR CIRCULATION: The distal vertebral arteries are patent as is the basilar artery. No aneurysm . BRAIN: No gross enhancing lesions are seen. BONES: Intact as visualized. SINUSES: No fluid or mucosal thickening. OTHER: No other significant finding. IMPRESSION: Suboptimal CTA of the [place]. The study is grossly normal. TECHNICAL DOCUMENTATION: JOB ID: [id number] Quality ID # [id number]: Final reports with documentation of one or more dose reduction techniques (e.g., Au tomated exposure control, adjustment of the mA and/or kV according to patient size, use of iterative reconstruction technique) 2010 [employer]- All Rights Reserved Reading location - IP/workstation name: [email or web address]
--- NOTE | 2018-08-27 17:29 | RADIOLOGY REPORT (SQ) ---
EXAM DESCRIPTION: CTA NECK COMPLETED DATE/TIME: 08/27/2018 5:09 pm REASON FOR STUDY: Slurred speech COMPARISON: None. TECHNIQUE: Axial dynamic scanning technique with dynamic contrast enhancement through the extra-cradle slide maker nial carotid and vertebral arteries. Multiplanar reconstruction. 3-D MIPS and Volume-rendered imag es acquired at the workstation and saved to PACS. Images are reviewed in soft tissue, bone, lung w indows. All CT scanners at this facility use dose modulation, iterative reconstruction, and/or weight based d osing when appropriate to reduce radiation dose to as low as reasonably achievable (ALARA). [facility]: Dose Right [facility]: CareDose [facility]: Dose Right [facility]: Teradose 4D [facility]: [employer] CONTRAST TYPE AND DOSE: contrast/concentration: Isovue 350.00 mg/ml; Total Contrast Delivered: 70.0 ml; Total Saline Delivered: 68.8 ml RENAL FUNCTION: GFR > 60. LIMITATIONS: Very poor contrast bolus (aortic arch HU = 106) FINDINGS: AORTIC ARCH: Normal three-vessel origin. Bilateral subclavian arteries are patent. No d issection. RIGHT CAROTIDS: Patent common, internal and external carotid arteries without suggestion of significa nt stenosis or atherosclerotic plaque. No dissection. RIGHT VERTEBRAL: Patent. No dissection. LEFT CAROTIDS: Patent common, internal and external carotid arteries without suggestion of significan t stenosis or irregular plaque. No dissection. LEFT VERTEBRAL: Patent. No dissection. OTHER: No other significant finding. OTHER: 3-D reconstructions confirm findings. IMPRESSION: Very limited examination of the cervical vasculature secondary to poor contrast bolus. Within this limitation, there is no gross abnormality of the cervical vasculature, which appears rod nt to the skullbase without significant calcific atherosclerosis. Consider repeat examination or MR to further evaluate given technical limitation of this examination. COMMENT: Quality ID #[id number]: Measurements of distal internal carotid diameter were used as the denomina tor for stenosis measurement. TECHNICAL DOCUMENTATION: JOB ID: [id number] Quality ID # [id number]: Final reports with documentation of one or more dose reduction techniques (e.g., Au tomated exposure control, adjustment of the mA and/or kV according to patient size, use of iterative reconstruction technique) 2010 [employer]- All Rights Reserved Reading location - IP/workstation name: [email or web address]
[2018-08-27] MEDS ORDERED: LABETALOL HCL INJ 20 MG/4 ML DISP.SYRIN IV ONE (17:45)
[2018-08-27] MEDS ORDERED: GLUCAGON,HUMAN RECOMB 1 MG INJ IM PRN (18:06)
[2018-08-27] MEDS ORDERED: DEXTROSE 50%-WATER 25 GM/50 ML DISP.SYRIN IV PRN ×2 (18:06)
[2018-08-27] MEDS ORDERED: DEXTROSE 40% GEL 15 GM TUBE PO PRN ×2 (18:06)
[2018-08-27] MEDS ORDERED: INSULIN LISPRO 100 UNIT/ML 3 ML VIAL SUBCUT PRN (18:06)
[2018-08-27] MEDS ORDERED: HYDRALAZINE HCL INJ/PF 20 MG/1 ML SDV IV PRN (18:07)
[2018-08-27 18:27] LABS: CHOLESTEROL 190.97 mg/dL (0-200); TRIGLYCERIDES 399 mg/dL (<150)
[2018-08-27 18:37] LABS: DIRECT LDL 81 mg/dL (<100)
[2018-08-27 18:38] LABS: VLDL CHOLESTEROL 79.8 mg/dL (10-31)
--- NOTE | 2018-08-27 18:55 | PDOC H&P ---
History of Present Illness Admission Date/PCP: RICH NORRIS DO Patient complains of: slurred speech, right foot weakness History of Present Illness: VIKTORIA THOMAS is a 78 year old male with a PMH of atrial fibrillation, S/P pacemaker placement, CAD, hyperlipidemia, DM 2, diabetic neuropathy. hypothyroidism and hypertension who came in due to slurred speech and right foot weakness. Patient says he suddenly had slurring of speech around 10:30 this morning. He also noted he was shuffling when walking and noted his right foot was lagging behind and that he almost stumbled. These lasted for 3-4 hrs and completely resolved. In the ER, he had an NIH 0. He says he is not on blood thinners for his history of Afib as he was told by his EP before that he should not be on one. He says he has also discussed this with his regular laboratory clerk before who has discussed it with his EP and he was told he will not be on blood thinners. He does have history of epistaxis and had an ER visit last night for a nosebleed. Past Medical History Cardiac Medical History: Reports: Atrial Fibrillation, Coronary Artery Disease, Hyperlipidema, Hypertension Denies: Myocardial Infarction Pulmonary Medical History: Denies: Asthma, Bronchitis, Chronic Obstructive Pulmonary Disease (COPD), Pneumonia, Tuberculosis Neurological Medical History: Denies: Seizures Endocrine Medical History: Reports: Diabetes Mellitus Type 1, Diabetes Mellitus Type 2, Hypothyroidism GI Medical History: Reports: Hiatal Hernia Denies: Hepatitis Musculoskeltal Medical History: Reports: Arthritis - GENERALIZED Psychiatric Medical History: Reports: Depression Hematology: Denies: Anemia, Sickle Cell Disease Past Surgical History Past Surgical History: Reports: Appendectomy, Orthopedic Surgery - B knee replacements, Tonsillectomy Denies: Pacemaker Social History Lives with: Spouse/Significant other Smoking Status: Never Smoker Hx Recreational Drug Use: No Hx Prescription Drug Abuse: No Family History Family History: Reviewed & Not Pertinent Parental Family History Reviewed: Yes - no premature CAD Children Family History Reviewed: No Sibling(s) Family History Reviewed.: No Medication/Allergy Home Medications: Amlodipine Besylate 10 mg PO DAILY 04/15/12 Gabapentin 900 mg PO BID 04/15/12 Levothyroxine Sodium [Tirosint] 25 mcg PO DAILY 04/15/12 Metformin HCl [Metformin HCl ER] 500 mg PO DAILY 04/15/12 Paroxetine HCl [Paxil 20 Mg Tablet] 20 mg PO DAILY 04/15/12 Propafenone HCl [Rythmol Sr] 225 mg PO TID 04/15/12 Aspirin [Aspirin EC] 81 mg PO DAILY 07/04/14 Atorvastatin Calcium [Lipitor 40 mg Tablet] 40 mg PO QHS 07/04/14 Hydrochlorothiazide [Hydrodiuril 25 mg Tablet] 25 mg PO QAM 07/04/14 Potassium Chloride [Klor-Con 10] 10 meq PO DAILY 09/11/16 Tamsulosin HCl 0.4 mg PO DAILY 09/11/16 Allergies/Adverse Reactions: amlodipine Allergy (Verified 08/27/18 16:17) lisinopril Allergy (Verified 08/27/18 16:17) losartan [Losartan] Adverse Reaction (Verified 08/27/18 16:17) Review of Systems All systems: reviewed and no additional remarkable complaints except as stated - as mentioned above Physical Exam Vital Signs: Temp Pulse Resp BP Pulse Ox 98.1 F 63 18 176/107 H 94 08/27/18 16:00 08/27/18 16:00 08/27/18 16:38 08/27/18 16:38 08/27/18 16:38 Intake & Output 08/26/18 08/27/18 08/28/18 06:59 06:59 06:59 Weight 287 lb 4.197 oz General appearance: PRESENT: no acute distress, well-developed, well-nourished Head exam: PRESENT: atraumatic, normocephalic Eye exam: PRESENT: conjunctiva pink, EOMI, PERRLA. ABSENT: scleral icterus Ear exam: PRESENT: normal external ear exam Mouth exam: PRESENT: moist, tongue midline Neck exam: ABSENT: carotid bruit, JVD, lymphadenopathy, thyromegaly Respiratory exam: PRESENT: clear to auscultation isaias. ABSENT: rales, rhonchi, wheezes Cardiovascular exam: PRESENT: RRR. ABSENT: diastolic murmur, rubs, systolic murmur Pulses: PRESENT: normal dorsalis pedis pul GI/Abdominal exam: PRESENT: normal bowel sounds, soft. ABSENT: distended, guarding, mass, organolmegaly, rebound, tenderness Rectal exam: PRESENT: deferred Neurological exam: PRESENT: alert, awake, oriented to person, oriented to place, oriented to time, oriented to situation, CN II-XII grossly intact. ABSENT: motor sensory deficit Results Laboratory Results: 08/27/18 15:15 08/27/18 15:15 08/27/18 08/27/18 15:15 15:15 WBC 6.5 RBC 5.31 Hgb 14.9 Hct 44.2 MCV 83 MCH 28.0 MCHC 33.6 RDW 15.3 H Plt Count 132 L Seg Neutrophils % 51.3 Lymphocytes % 32.1 Monocytes % 11.8 Eosinophils % 4.0 Basophils % 0.8 Absolute Neutrophils 3.4 Absolute Lymphocytes 2.1 Absolute Monocytes 0.8 Absolute Eosinophils 0.3 Absolute Basophils 0.1 Sodium 142.1 Potassium 3.8 Chloride 100 Carbon Dioxide 31 H Anion Gap 11 BUN 16 Creatinine 1.06 Est GFR ( Amer) > 60 Est GFR (Non-Af Amer) > 60 Glucose 130 H Calcium 9.7 Total Bilirubin 0.6 AST 28 ALT 21 Alkaline Phosphatase 79 Total Protein 7.9 Albumin 4.7 08/27/18 08/27/18 15:15 15:15 Creatine Kinase 56 CK-MB (CK-2) 1.29 Troponin I 0.014 Impressions: Chest X-Ray 08/27/18 15:21 IMPRESSION: HEART ENLARGED WITHOUT FAILURE. NO OTHER SIGNIFICANT RADIOGRAPHIC FINDING IN THE CHEST. Head CT 08/27/18 15:21 IMPRESSION: MILD CHRONIC CHANGES OF ATROPHY AND MICROVASCULAR ISCHEMIA. NO ACUTE PROCESS. EVIDENCE OF ACUTE STROKE: NO. Head CTA 08/27/18 15:42 IMPRESSION: Suboptimal CTA of the [place]. The study is grossly normal. Neck CTA 08/27/18 15:42 IMPRESSION: Very limited examination of the cervical vasculature secondary to poor contrast bolus. Within this limitation, there is no gross abnormality of the cervical vasculature, which appears patent to the skullbase without significant calcific atherosclerosis. Consider repeat examination or MR to further evaluate given technical limitation of this examination. Assessment & Plan - Diagnosis (1) TIA (transient ischemic attack) Is this a current diagnosis for this admission?: Yes Plan: Patient complained of slurring of speech and right foot weakness which resolved after 3-4 hrs. He does not appreciable neurologic deficit upon encounter and has an NIH of 0. CT of the head is negative. Blood pressures are elevated in the 170/100. He says he takes losartan and HCTZ for his HTN but ran out of supplies for the past 3-4 days. Continue aspirin. Add statin. Optimize blood pressure control. (2) Hypertension Qualifiers: Hypertension type: unspecified Qualified Code(s): I10 - Essential (primary) hypertension Is this a current diagnosis for this admission?: Yes Plan: Restart losartan and HCTZ. He got labetalol in the ER. Heart rate is currently at 60. Hydralazine prn for now. (3) History of atrial fibrillation Is this a current diagnosis for this admission?: Yes Plan: He takes propafenone at home. Not on anticoagulation and he also does not want to be started on one. - Time Time Spent: 30 to 50 Minutes
[2018-08-27] MEDS ORDERED: LOSARTAN POTASSIUM 50 MG TABLET PO SCH (19:00)
[2018-08-27] MEDS: HYDROCHLOROTHIAZIDE 25 MG TABLET PO SCH (19:46)
[2018-08-27] MEDS ORDERED: ATORVASTATIN CALCIUM 40 MG TABLET PO SCH (22:00)
--- NOTE | 2018-08-27 23:10 | EKG REPORT ---
SEVERITY:- ABNORMAL ECG - SINUS RHYTHM RBBB AND LAFB PROBABLE LEFT VENTRICULAR HYPERTROPHY : Confirmed by: Mi Stone 27-Aug-2018 23:09:34
[2018-08-27] MEDS: GABAPENTIN 300 MG CAPSULE PO SCH (23:32)
[2018-08-27] MEDS: HEPARIN SOD (PORCINE) 5,000 UNIT/ML 1 ML SYRINGE SUBCUT SCH (23:35)
[2018-08-28] MEDS ORDERED: LEVOTHYROXINE SODIUM 0.025 MG TABLET PO SCH (06:00)
[2018-08-28] MEDS: HYDROCHLOROTHIAZIDE 25 MG TABLET PO SCH (09:23)
[2018-08-28] MEDS: HEPARIN SOD (PORCINE) 5,000 UNIT/ML 1 ML SYRINGE SUBCUT SCH (09:24)
[2018-08-28] MEDS: GABAPENTIN 300 MG CAPSULE PO SCH (09:24)
[2018-08-28] MEDS ORDERED: LOSARTAN POTASSIUM 50 MG TABLET PO SCH (10:00)
[2018-08-28] MEDS ORDERED: ASPIRIN 81 MG TABLET, CHEWABLE PO SCH (10:00)
[2018-08-28] MEDS ORDERED: LEVOTHYROXINE SODIUM 25 MCG PO SCH (10:00)
[2018-08-28 14:25] VITALS: BP 160/82
--- NOTE | 2018-08-28 17:19 | PDOC DISCHARGE SUMMARY ---
General - Admit/Disc Date/PCP Admission Date/Primary Care Provider: 08/27/18 18:07 RICH NORRIS, Discharge Date: 08/28/18 - Discharge Diagnosis (1) TIA (transient ischemic attack) Is this a current diagnosis for this admission?: Yes (2) Hypertension Is this a current diagnosis for this admission?: Yes (3) History of atrial fibrillation Is this a current diagnosis for this admission?: Yes - Additional Information Discharge Diet: Cardiac, Diabetic Discharge Activity: Activity As Tolerated, Balance Activity w/Rest, Slowly Increase Activity Prescriptions: Atorvastatin Calcium [Lipitor 40 mg Tablet] 40 mg PO QHS #30 tablet Hydrochlorothiazide [Hydrodiuril 25 mg Tablet] 50 mg PO QAM #60 tablet Home Medications: Gabapentin 900 mg PO BID 04/15/12 Levothyroxine Sodium [Tirosint] 25 mcg PO DAILY 04/15/12 Paroxetine HCl [Paxil 20 mg Tablet] 20 mg PO DAILY 04/15/12 Propafenone HCl [Rythmol Sr] 225 mg PO TID 04/15/12 Aspirin [Aspirin EC] 81 mg PO DAILY 07/04/14 Potassium Chloride [Klor-Con 10] 10 meq PO DAILY 09/11/16 Tamsulosin HCl 0.4 mg PO DAILY 09/11/16 Losartan Potassium [Cozaar 100 mg Tablet] 100 mg PO DAILY 08/27/18 Metformin HCl [Metformin HCl ER] 500 mg PO DAILY 08/27/18 Atorvastatin Calcium [Lipitor 40 mg Tablet] 40 mg PO QHS #30 tablet 08/28/18 Hydrochlorothiazide [Hydrodiuril 25 mg Tablet] 50 mg PO QAM #60 tablet 08/28/18 History of Present Illness History of Present Illness: VIKTORIA THOMAS is a 78 year old male with a PMH of atrial fibrillation, S/P pacemaker placement, CAD, hyperlipidemia, DM 2, diabetic neuropathy. hypothyroidism and hypertension who came in due to slurred speech and right foot weakness. Patient says he suddenly had slurring of speech around 10:30 this morning. He also noted he was shuffling when walking and noted his right foot was lagging behind and that he almost stumbled. These lasted for 3-4 hrs and completely resolved. In the ER, he had an NIH 0. Hospital Course Hospital Course: Patient complained of slurring of speech and right foot weakness which resolved after 3-4 hrs. His symptoms completely resolved upon encounter and he has an NIH of 0. CT of the head is negative. CTA of the head and neck were also unremarkable. Blood pressures are elevated in the 170/100. He says he takes losartan and HCTZ for his HTN but ran out of supplies for the past 3-4 days. Aspirin. Added statin. He was resumed on losartan 100 mg daily and HCTZ. HCTZ was increased to 50 mg from 25 mg daily. He says he is not on blood thinners for his history of Afib as he was told by his EP before that he should not be on one. 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 He does have history of recurrent epistaxis and says he would not want to be on a NOAC. Physical Exam Vital Signs: Temp Pulse Resp BP Pulse Ox 97.5 F 66 19 160/82 H 91 L 08/28/18 14:19 08/28/18 14:19 08/28/18 14:19 08/28/18 14:19 08/28/18 14:19 Intake & Output 08/27/18 08/28/18 08/29/18 06:59 06:59 06:59 Intake Total 760 472 Balance 760 472 Weight 263 lb 7.238 oz General appearance: PRESENT: no acute distress, well-developed, well-nourished Head exam: PRESENT: atraumatic, normocephalic Eye exam: PRESENT: conjunctiva pink, EOMI, PERRLA. ABSENT: scleral icterus Ear exam: PRESENT: normal external ear exam Mouth exam: PRESENT: moist, tongue midline Neck exam: ABSENT: carotid bruit, JVD, lymphadenopathy, thyromegaly Respiratory exam: PRESENT: clear to auscultation isaias. ABSENT: rales, rhonchi, wheezes Cardiovascular exam: PRESENT: RRR. ABSENT: diastolic murmur, rubs, systolic murmur Pulses: PRESENT: normal dorsalis pedis pul GI/Abdominal exam: PRESENT: normal bowel sounds, soft. ABSENT: distended, guarding, mass, organolmegaly, rebound, tenderness Rectal exam: PRESENT: deferred Neurological exam: PRESENT: alert, awake, oriented to person, oriented to place, oriented to time, oriented to situation, CN II-XII grossly intact. ABSENT: motor sensory deficit Results Laboratory Results: 08/27/18 15:15 08/27/18 15:15 08/27/18 15:15 Triglycerides 399 H Cholesterol 190.97 LDL Cholesterol Direct 81 VLDL Cholesterol 79.8 H HDL Cholesterol 26 L 08/27/18 08/27/18 15:15 15:15 Creatine Kinase 56 CK-MB (CK-2) 1.29 Troponin I 0.014 Impressions: Chest X-Ray 08/27/18 15:21 IMPRESSION: HEART ENLARGED WITHOUT FAILURE. NO OTHER SIGNIFICANT RADIOGRAPHIC FINDING IN THE CHEST. Head CT 08/27/18 15:21 IMPRESSION: MILD CHRONIC CHANGES OF ATROPHY AND MICROVASCULAR ISCHEMIA. NO ACUTE PROCESS. EVIDENCE OF ACUTE STROKE: NO. Head CTA 08/27/18 15:42 IMPRESSION: Suboptimal CTA of the [place]. The study is grossly normal. Neck CTA 08/27/18 15:42 IMPRESSION: Very limited examination of the cervical vasculature secondary to poor contrast bolus. Within this limitation, there is no gross abnormality of the cervical vasculature, which appears patent to the skullbase without significant calcific atherosclerosis. Consider repeat examination or MR to further evaluate given technical limitation of this examination. Qualifiers - * PATIENT BEING DISCHARGED WITH ANY OF THE FOLLOWING DIAGNOSIS: No
== END 2018-08-28 14:20 | disposition home or self-care (01) ==
LOC: ER 15:19 → EH 18:07 → INTOOBSV 18:07 → 3S 08-28 01:27
PROVIDERS: ADMIT Internal Medicine; ATTEND Internal Medicine
DX: G45.9 Transient cerebral ischemic attack, unspecified (principal); I10 Essential (primary) hypertension; I48.91 Unspecified atrial fibrillation; E78.5 Hyperlipidemia, unspecified; I25.10 Atherosclerotic heart disease of native coronary artery without angina pectoris; E11.40 Type 2 diabetes mellitus with diabetic neuropathy, unspecified; E03.9 Hypothyroidism, unspecified; I45.2 Bifascicular block; Z79.899 Other long term (current) drug therapy; Z79.82 Long term (current) use of aspirin; Z95.0 Presence of cardiac pacemaker; Z79.84 Long term (current) use of oral hypoglycemic drugs; Z96.653 Presence of artificial knee joint, bilateral; Z90.49 Acquired absence of other specified parts of digestive tract; Z23 Encounter for immunization; Z86.73 Personal history of transient ischemic attack (TIA), and cerebral infarction without residual deficits
CPT/HCPCS: 93005; 99285; 36415; 82553; 82962 ×2; 82550; 85025; 85610; 85730; 80053; 84484; 80061; 71045; 70450; 70496; 70498; 90686; 93010; G0378 ×3; J1644; J0360; J1815

== ENCOUNTER → 2018-09-04 | Outpatient (CLI) | payer MEDICARE, OTHER ==
--- NOTE | 2018-09-04 15:30 | RADIOLOGY REPORT (SQ) ---
EXAM DESCRIPTION: CTA NECK COMPLETED DATE/TIME: 09/04/2018 3:02 pm REASON FOR STUDY: SLURRED SPEECH, TIA COMPARISON: CT brain 08/27/2018, 07/09/2018, 11/20/2016 CT angio neck 08/27/2018 TECHNIQUE: Axial dynamic scanning technique with dynamic contrast enhancement through the extra-crane ladle person nial carotid and vertebral arteries. Multiplanar reconstruction. 3-D MIPS and Volume-rendered imag es acquired at the workstation and saved to PACS. Images are reviewed in soft tissue, bone, lung w indows. All CT scanners at this facility use dose modulation, iterative reconstruction, and/or weight based d osing when appropriate to reduce radiation dose to as low as reasonably achievable (ALARA). [facility]: Dose Right [facility]: CareDose [facility]: Dose Right [facility]: Teradose 4D [facility]: [facility] CONTRAST TYPE AND DOSE: contrast/concentration: Isovue 350.00 mg/ml; Total Contrast Delivered: 80.0 ml; Total Saline Delivered: 75.0 ml RENAL FUNCTION: Creatinine 1.1 LIMITATIONS: None. FINDINGS: AORTIC ARCH: Normal three-vessel origin. Bilateral subclavian arteries are patent. No d issection. RIGHT CAROTIDS: Patent common, internal and external carotid arteries without suggestion of significa nt stenosis or irregular plaque. No dissection. RIGHT VERTEBRAL: Patent. No dissection. LEFT CAROTIDS: Patent common, internal and external carotid arteries without suggestion of significan t stenosis or irregular plaque. No dissection. LEFT VERTEBRAL: Patent. No dissection. OTHER: No other significant finding. Lung apices are clear. No neck masses or adenopathy. Multilev el degenerative disc changes in the cervical spine OTHER: 3-D reconstructions confirm findings. IMPRESSION: NORMAL CTA OF THE EXTRA-CRANIAL CAROTID AND VERTEBRAL ARTERIES. COMMENT: Quality ID #[id number]: Measurements of distal internal carotid diameter were used as the denomina tor for stenosis measurement. TECHNICAL DOCUMENTATION: JOB ID: [id number] Quality ID # [id number]: Final reports with documentation of one or more dose reduction techniques (e.g., Au tomated exposure control, adjustment of the mA and/or kV according to patient size, use of iterative reconstruction technique) 2010 [employer]- All Rights Reserved Reading location - IP/workstation name: [email or web address]
== END ==
LOC: RAD 14:04
PROVIDERS: ATTEND Student in an Organized Health Care Education/Training Program
DX: R47.81 Slurred speech (principal)
CPT/HCPCS: 70498

== ENCOUNTER 2018-10-04 04:00 | Inpatient (IN) | payer OTHER, MEDICARE ==
--- NOTE | 2018-10-04 04:21 | ER Document Report ---
ED General - General Mode of Arrival: Ambulatory Information source: Patient TRAVEL OUTSIDE OF THE [place] IN LAST 30 DAYS: No - HPI Onset: This morning Onset/Duration: Persistent Quality of pain: No pain Severity: Severe Associated symptoms: None Exacerbated by: Denies Relieved by: Denies Similar symptoms previously: Yes Recently seen / treated by doctor: No <ROSE RUDD - Last Filed: 10/04/18 04:48> <JAZMIN COOLEY - Last Filed: 10/04/18 05:44> - General Chief Complaint: S/S of Possible Stroke Stated Complaint: S/S STROKE Time Seen by Provider: 10/04/18 04:10 Primary Care Provider: RICH NORRIS DO [Primary Care Provider] - Follow up as needed Notes: 78-year-old male with atrial fibrillation, SVT, diabetes, hyperlipidemia, hypertension presents to the ED with complaint of slurred speech, R facial droop, RUE weakness, RLE weakness, ataxia. Patient says that he went to bed somewhere between 8-10. He woke up at 12:30 with his symptoms. He was laying on his right side and thought that was causing his right arm/leg numbness and weakness. He woke up his up at 3:30 and told her he thought he was having a stroke and they came into the ED. Patient says that he was just admitted to the ED for TIA. He says that all of his symptoms completely resolved. He denies being on blood thinners for his atrial fibrillation. (ROSE RUDD) - Related Data Allergies/Adverse Reactions: amlodipine Allergy (Verified 08/27/18 16:17) lisinopril Allergy (Verified 08/27/18 16:17) Past Medical History - Social History Smoking Status: Unknown if Ever Smoked Family History: Reviewed & Not Pertinent - Past Medical History Cardiac Medical History: Reports: Hx Atrial Fibrillation, Hx Coronary Artery Disease, Hx Hypercholesterolemia, Hx Hypertension Denies: Hx Heart Attack Pulmonary Medical History: Denies: Hx Asthma, Hx Bronchitis, Hx COPD, Hx Pneumonia, Hx Tuberculosis Neurological Medical History: Reports: Hx Cerebrovascular Accident - WEAKNESS LEFT SIDE. Denies: Hx Seizures Endocrine Medical History: Reports: Hx Diabetes Mellitus Type 1, Hx Diabetes Mellitus Type 2, Hx Hypothyroidism Renal/ Medical History: Denies: Hx Peritoneal Dialysis GI Medical History: Reports: Hx Hiatal Hernia. Denies: Hx Hepatitis, Hx Ulcer Musculoskeletal Medical History: Reports Hx Arthritis - GENERALIZED Psychiatric Medical History: Reports: Hx Depression Infectious Medical History: Denies: Hx Hepatitis Past Surgical History: Reports: Hx Appendectomy, Hx Cardiac Surgery - pacemaker, Hx Open Heart Surgery - ABLATION, Hx Orthopedic Surgery - B knee replacements, Hx Tonsillectomy. Denies: Hx Pacemaker - Immunizations Hx Diphtheria, Pertussis, Tetanus Vaccination: Yes Hx Pneumococcal Vaccination: 04/16/12 <ROSE RUDD A - Last Filed: 10/04/18 04:48> Review of Systems - Review of Systems Constitutional: No symptoms reported EENT: No symptoms reported Cardiovascular: No symptoms reported Respiratory: No symptoms reported Gastrointestinal: No symptoms reported Musculoskeletal: No symptoms reported Skin: No symptoms reported Hematologic/Lymphatic: No symptoms reported Neurological/Psychological: Weakness, Gait changes, Speech impairment, Numbness -: Yes All other systems reviewed and negative <ROSE RUDD - Last Filed: 10/04/18 04:48> Physical Exam <ROSE RUDD - Last Filed: 10/04/18 04:48> - Vital signs Vitals: Pulse Resp BP Pulse Ox 60 16 169/101 H 93 10/04/18 04:10 10/04/18 04:10 10/04/18 04:10 10/04/18 04:10 - Notes Notes: PHYSICAL EXAMINATION: GENERAL: Well-appearing, well-nourished. HEAD: Atraumatic, normocephalic. EYES: Pupils equal round and reactive to light, extraocular movements intact, sclera anicteric, conjunctiva are normal. ENT: Nares patent, oropharynx clear without exudates. Moist mucous membranes. NECK: Normal range of motion, supple without lymphadenopathy LUNGS: Breath sounds clear to auscultation bilaterally and equal. No wheezes rales or rhonchi. HEART: Regular rate and rhythm without murmurs ABDOMEN: Soft, nontender, nondistended abdomen. No guarding, no rebound. No masses appreciated. Musculoskeletal: Normal range of motion, no pitting or edema. No cyanosis. NEUROLOGICAL: Right sided facial droop. Slurred speech. RLE weakness. Abnormal finger to nose with the right hand. PSYCH: Normal mood, normal affect. SKIN: Warm, Dry, normal turgor, no rashes or lesions noted. (ROSE RUDD) Course - Laboratory Result Diagrams: 10/04/18 04:15 10/04/18 04:15 <ROSE RUDD - Last Filed: 10/04/18 04:48> - Laboratory Result Diagrams: 10/04/18 04:15 10/04/18 04:15 <JAZMIN COOLEY - Last Filed: 10/04/18 05:44> - Re-evaluation Re-evalutation: 10/04/18 04:29 Patient is not a TPA candidate. He went to bed around 8-10 and woke up with symptoms. 10/04/18 04:48 EKG: Ventricular rate 60, NM interval 176, cures duration 186, QTc 488. No ST segment elevation. (ROSE RUDD) 10/04/18 05:40 CT of the head negative, workup generally unremarkable, patient already had a workup 1 month ago, however based on his ataxia and right-sided deficits it is likely he will need rehab. Will discuss with hospitalist for admission. Spoke with Dr. Woodard, hospitalist, patient accepted for admission. (JAZMIN COOLEY) - Vital Signs Vital signs: Temp Pulse Resp BP Pulse Ox 60 16 169/101 H 94 10/04/18 04:10 10/04/18 04:10 10/04/18 04:10 10/04/18 04:10 - Laboratory Laboratory results interpreted by me: 10/04/18 10/04/18 04:15 04:15 RBC 5.73 H RDW 15.1 H Plt Count 131 L Potassium 3.5 L Glucose 182 H Direct Bilirubin 0.5 H Creatine Kinase 27 L Discharge <ROSE RUDD - Last Filed: 10/04/18 04:48> - Discharge Admitting Provider: Hospitalist Unit Admitted: IMCU <JAMZIN COOLEY - Last Filed: 10/04/18 05:44> - Discharge Clinical Impression: Right sided weakness, Ataxia, Slurred speech CVA (cerebral vascular accident) Qualifiers: CVA mechanism: unspecified Qualified Code(s): I63.9 - Cerebral infarction, unspecified Condition: Stable Disposition: ADMITTED INPATIENT Referrals: RICH NORRIS DO [Primary Care Provider] - Follow up as needed
--- NOTE | 2018-10-04 04:29 | ER Document Report ---
ED NIH Stroke Scale - NIH Stroke Scale *: 1. NIH scale should be completed with appropriate accompanying assessment tools. *: 2. The NIH should reflect what the patient is capable of doing and should not be coached by the clinician. 1a. Level of Consciousness: 0=Alert;keenly responsive -: 1=Drowsy -: 2=Obtunded -: 3=Coma/unresponsive or reflex to noxious stimuli. 1a. Responses: 0 1b. Orientation Questions: a. What month is it? -: b. How old are you? -: 0=Answers both questions correctly. -: 1=Answers one question correctly or patient is intubated or has orotracheal trauma. -: 2=Answers neither question correctly. 1b. Responses: 0 1c. Response to commands: a. Open and close eyes? -: b. Recreation Officer and release hand? -: Credit is given despite weakness. Demonstration of task is permitted. Substitute command if hands cannot be used. -: 0=Performs both tasks correctly -: 1=Performs one task correctly -: 2=Performs neither task correctly 1c. Responses: 0 2. Gaze: Establish eye contact and instruct patient to "Follow my finger" -: 0=Normal -: 1=Partial gaze palsy. Gaze is abnormal in one or both eyes, but where forced deviation or total gaze paresis is not present. -: 2=Forced deviation or total gaze paresis. 2. Responses: 0 3. Visual Parikh: Sees fingers in all four quadrants. -: 0=No visual loss. -: 1=Partial hemianopsia. -: 2=Complete hemianopsia. -: 3=Bilateral hemianopsia (including Cortical blindness) 3. Responses: 0 4. Facial Movement: Instruct patient to: -: a. Show me your teeth -: b. Raise your eyebrows -: c. Close your eyes -: d. Smile -: 0=Normal symmetrical movement -: 1=Minor paralysis (flattened nasolabial fold, asymmetry on smiling). -: 2=Partial paralysis (total or near total paralysis of lower face). -: 3=Complete paralysis of upper and lower face 4. Responses: 1 5. Motor functions (left arm): Alternate sides and extend each arm with palms down (90 degrees if sitting or 45 degrees for supine). -: 0=No drift;limb holds for full 10 seconds. -: 1=Drift; limb holds but drifts down before full 10 seconds, but does not hit bed. -: 2=Some effort against gravity; limb cannot get to or maintain position. -: 3=No effort against gravity; limb falls. -: 4=No movement. -: UN=Amputation, joint fusion, explain in comments. 5. Responses (left arm): 0 5. Motor Functions (right arm): Alternate sides and extend each arm with palms down (90 degrees if sitting or 45 degrees for supine). -: 0=No drift;limb holds for full 10 seconds. -: 1=Drift; limb holds but drifts down before full 10 seconds, but does not hit bed. -: 2=Some effort against gravity; limb cannot get to or maintain position. -: 3=No effort against gravity; limb falls. -: 4=No movement. -: UN=Amputation, joint fusion, explain in comments. 5. Responses (right arm): 0 6. Motor Functions (left leg): With patient lying supine, alternate sides and extend each leg (30 degrees always while supine). -: 0=No drift, leg holds position for full 5 seconds -: 1=Drift; leg falls before full 5 seconds but does not hit bed. -: 2=Some effort against gravity, leg falls to bed but some effort against gravity. -: 3=No effort against gravity, leg falls to bed immediately. -: 4=No movement. -: UN=Amputation, joint fusion; explain in comments. 6. Responses (left leg): 0 6. Motor Functions (right leg): With patient lying supine, alternate sides and extend each leg (30 degrees always while supine). -: 0=No drift, leg holds position for full 5 seconds -: 1=Drift; leg falls before full 5 seconds but does not hit bed. -: 2=Some effort against gravity, leg falls to bed but some effort against gravity. -: 3=No effort against gravity, leg falls to bed immediately. -: 4=No movement. -: UN=Amputation, joint fusion; explain in comments. 6. Responses (right leg): 1 7. Limb Ataxia: With eyes open instruct patient to: -: a. "Touch your finger to your nose". -: b. "Touch your heel to your ngo" -: 0=Absent -: 1=Present in one limb. -: 2=Present in two limbs. -: UN=Amputation or joint fusion; explain in comments. 7. Responses: 1 7. If ataxia present choose as appropriate: Right arm, Right leg 8. Sensory: Test sensation using pinprick or noxious stimuli. Test as many body parts as possible. -: 0=Normal;no sensory loss -: 1=Mile to moderate sensory loss (patient feels pin prick but is less sharp on affected side). -: 2=Severe or total sensory loss. 8. Responses: 0 9. Best Language: Instruct patient to: -: a. "Describe what you see in this picture." -: b. "Name the items in this picture." -: c. "Read these sentences." -: 0=No aphasia, normal -: 1=Mild to moderate aphasia. -: 2=Severe aphasia -: 3=Mute, global aphasia, no usable speech or auditory comprehension. 9. Responses: 0 10. Articulation, Dysarthia: Instruct patient to: -: "Read these words" or "Repeat these words" -: 0=Normal -: 1=Mild to moderate; patient may slur some words but can be understood without difficulty. -: 2=Severe; patients speech so slurred as to be unintelligible in the absence of dysphasia. -: UN=Intubated or other physical barrier, explain in comments. 10. Responses: 1 11. Extinction or inattention: 0=No abnormality -: 1= Visual, tactile, auditory, spatial, or personal inattention or extinction to bilateral simulation in one or the sensory modalities. -: 2=Profound iliana-inattention or iliana-inattention to more than one modality; does not recognize own hand. 11. Responses: 0 Total Score: 4
[2018-10-04 04:31] LABS: ABSOLUTE EOSINOPHILS # (AUTO) 0.3 10^3/uL (0.0-0.6); ABSOLUTE LYMPHOCYTES (AUTO) 1.8 10^3/uL (0.5-4.7); ABSOLUTE MONOCYTES (AUTO) 0.6 10^3/uL (0.1-1.4); ABSOLUTE NEUT (AUTO) 4.4 10^3/uL (1.7-8.2); BASOPHILS % (AUTO) 0.6 % (0-2); EOSINOPHILS % (AUTO) 4.3 % (0-6); HEMATOCRIT 47.7 % (37.9-51.0); HEMOGLOBIN 15.8 g/dL (13.5-17.0); LYMPHOCYTES % (AUTO) 25.6 % (13-45); MEAN CORPUSCULAR HEMOGLOBIN 27.6 pg (27.0-33.4); MEAN CORPUSCULAR HGB CONC 33.2 g/dL (32.0-36.0); MEAN CORPUSCULAR VOLUME 83 fl (80-97); MONOCYTES % (AUTO) 8.2 % (3-13); PLATELET COUNT 131 10^3/uL (150-450); RED BLOOD COUNT 5.73 10^6/uL (4.35-5.55); RED CELL DISTRIBUTION WIDTH 15.1 % (11.5-14.0); SEGMENTED NEUTROPHILS % (AUTO) 61.3 % (42-78); TOTAL CELLS COUNTED % (AUTO) 100 %; WHITE BLOOD COUNT 7.2 10^3/uL (4.0-10.5)
[2018-10-04 04:33] LABS: INTERNATIONAL RATION (INR) 0.94; PROTHROMBIN TIME 13.1 SEC (11.4-15.4)
[2018-10-04 04:34] LABS: PARTIAL THROMBOPLASTIN TIME 29.1 SEC (23.5-35.8)
--- NOTE | 2018-10-04 04:40 | RADIOLOGY REPORT (SQ) ---
EXAM DESCRIPTION: CT HEAD WITHOUT IV CONTRAST COMPLETED DATE/TME: 10/04/2018 04:10 CLINICAL HISTORY: 78 years, Male, cva COMPARISON: August 17, 2017 Technique: Contiguous axial images of the brain were obtained without the administration of intravenous contrast. Coronal and sagittal reformats obtained and reviewed. This exam was performed according to our departmental dose-optimization program which includes use of Automated Exposure Control, adjustment of the mA and/or kV according to patient size and/or use of iterative reconstruction technique. Findings: Brain: Mild cerebral atrophy. Periventricular and deep white matter hypodensities, most commonly due to nonspecific white matter chronic microvascular ischemia.No hemorrhage. No territorial infarct. No mass effect. No herniation. Ventricles: Within normal limits for patient's age. Bones: No acute osseous abnormality. Paranasal sinuses: Unremarkable. Mastoid air cells: Unremarkable. Soft tissues: No acute abnormality. IMPRESSION: No acute intracranial abnormalities.
--- NOTE | 2018-10-04 04:42 | RADIOLOGY REPORT (SQ) ---
EXAM DESCRIPTION: XR CHEST 1 VIEW COMPLETED DATE/TME: 10/04/2018 04:10 CLINICAL HISTORY: 78 years, Male, cva Comparison: None FINDINGS: No focal lung consolidation. Lung volumes are decreased. No pleural effusion. No pneumothorax. Cardiac and mediastinal silhouette is unremarkable. Pacemaker from a left subclavian approach. No acute osseous abnormality. Soft tissues are unremarkable. IMPRESSION: No acute findings. No focal lung consolidation.
[2018-10-04 04:44] LABS: ALANINE AMINOTRANSFERASE 24 U/L (21-72); ALBUMIN 4.6 g/dL (3.5-5.0); ALKALINE PHOSPHATASE 87 U/L (38-126); ANION GAP 12 (5-19); ASPARTATE AMINO TRANSFERASE 24 U/L (17-59); BILIRUBIN,DIRECT 0.5 mg/dL (0.0-0.4); BILIRUBIN,TOTAL 0.7 mg/dL (0.2-1.3); BLOOD UREA NITROGEN 16 mg/dL (7-20); CALCIUM 9.8 mg/dL (8.4-10.2); CARBON DIOXIDE 30 mmol/L (22-30); CHLORIDE 103 mmol/L (98-107); CREATINE KINASE 27 U/L (55-170); GLUCOSE 182 mg/dL (75-110); POTASSIUM 3.5 mmol/L (3.6-5.0); TOTAL PROTEIN 7.8 g/dL (6.3-8.2)
[2018-10-04 04:56] LABS: CREATINE KINASE MB 0.66 ng/mL (<4.55); TROPONIN I 0.012 ng/mL
[2018-10-04] MEDS ORDERED: MAGNESIUM HYDROXIDE SUSP 30 ML UDCUP PO PRN (06:02)
[2018-10-04] MEDS ORDERED: ACETAMINOPHEN 325 MG TABLET PO PRN (06:02)
[2018-10-04] MEDS ORDERED: DOCUSATE SODIUM 100 MG CAPSULE PO PRN (06:02)
[2018-10-04] MEDS ORDERED: ONDANSETRON HCL INJ/PF 4 MG/2 ML SDV IV PRN (06:02)
[2018-10-04] MEDS ORDERED: ONDANSETRON 4 MG TAB.RAPDIS PO PRN (06:02)
[2018-10-04] MEDS ORDERED: TEMAZEPAM 15 MG CAPSULE PO PRN (06:02)
[2018-10-04] MEDS ORDERED: MAG HYDROX/AL HYDROX/SIMETH SUSP 30 ML UDCUP PO PRN (06:09)
[2018-10-04] MEDS ORDERED: NALBUPHINE HCL INJ 10 MG/1 ML AMPULE IV PRN (06:09)
[2018-10-04] MEDS ORDERED: NICOTINE 21 MG/24 HR PATCH.TD24 TD PRN (06:09)
[2018-10-04] MEDS ORDERED: GLUCAGON,HUMAN RECOMB 1 MG INJ IM PRN (06:12)
[2018-10-04] MEDS ORDERED: DEXTROSE 40% GEL 15 GM TUBE PO PRN ×2 (06:12)
[2018-10-04] MEDS ORDERED: DEXTROSE 50%-WATER 25 GM/50 ML DISP.SYRIN IV PRN ×2 (06:12)
[2018-10-04 06:48] LABS: FREE T3 2.99 pg/mL (2.77-5.27)
--- NOTE | 2018-10-04 07:39 | PDOC H&P ---
History of Present Illness Admission Date/PCP: 10/04/18 05:47 RICH NORRIS DO Patient complains of: Right-sided weakness with dysarthria History of Present Illness: VIKTORIA THOMAS is a 78 year old male who presented to the emergency room with a 3-hour history of acute onset right-sided weakness and dysarthria. Patient admits that he was fine when he went to bed at approximately 8 PM on 01/31/2019 but he woke from sleep at approximately 00:30 AM with the need to go to the bathroom. When he tried to get up he noticed that his right leg was not working well and then he noticed his right arm was not working well. A short time later he managed to summon his from another room and at that time he discovered his speech was dysarthric. Several hours after this initial discovery was made he presented to the emergency room but with no clear onset time the patient was felt to be outside the window for thrombolytic therapy. He admits prior similar episodes and was recently hospitalized for evaluation of a TIA. He denies identification of any aggravating or ameliorating factors for his sudden onset weakness and dysarthria. He denies any associated symptoms and specifically has been able to swallow water without difficulty. In the emerge ncy room he was found to have a negative CT scan of the head for evidence of intracranial hemorrhage. The remainder of his laboratory work was unremarkable and he was subsequently admitted to the hospital for further evaluation and treatment via the stroke protocol. Past Medical History Cardiac Medical History: Reports: Atrial Fibrillation, Coronary Artery Disease, Hyperlipidema, Hypertension Denies: Myocardial Infarction Pulmonary Medical History: Denies: Asthma, Bronchitis, Chronic Obstructive Pulmonary Disease (COPD), Pneumonia, Tuberculosis EENT Medical History: Reports: None Neurological Medical History: Reports: Other - TIA Denies: Multiple Sclerosis, Seizures Endocrine Medical History: Reports: Diabetes Mellitus Type 2, Hypothyroidism Denies: Hyperthyroidism Renal/ Medical History: Denies: Chronic Kidney Disease, Nephrolithiasis Malignancy Medical History: Reports: None GI Medical History: Reports: Hiatal Hernia Denies: Cirrhosis, Hepatitis Musculoskeltal Medical History: Reports: Arthritis - GENERALIZED Denies: Gout Skin Medical History: Denies: Eczema, Psoriasis Psychiatric Medical History: Reports: Depression, Tobacco Dependency Denies: Alcohol Dependency, Substance Abuse Traumatic Medical History: Reports: None Hematology: Denies: Anemia, Bleeding Tendencies Infectious Medical History: Reports: None Past Surgical History Past Surgical History: Reports: Appendectomy, Orthopedic Surgery - B knee replacements, Tonsillectomy Social History Information Source: Patient Lives with: Spouse/Significant other Smoking Status: Former Smoker Frequency of Alcohol Use: Occasional Hx Recreational Drug Use: No Drugs: None Hx Prescription Drug Abuse: No - Advance Directive Resuscitation Status: Full Code Surrogate healthcare decision maker:: Family History Family History: CAD. denies: DM, Hypertension, Malignancy Parental Family History Reviewed: Yes Children Family History Reviewed: No Sibling(s) Family History Reviewed.: Yes Medication/Allergy Home Medications: Gabapentin 900 mg PO BID 04/15/12 Levothyroxine Sodium [Tirosint] 25 mcg PO DAILY 04/15/12 Paroxetine HCl [Paxil 20 mg Tablet] 20 mg PO DAILY 04/15/12 Propafenone HCl [Rythmol Sr] 225 mg PO TID 04/15/12 Aspirin [Aspirin EC] 81 mg PO DAILY 07/04/14 Potassium Chloride [Klor-Con 10] 10 meq PO DAILY 09/11/16 Tamsulosin HCl 0.4 mg PO DAILY 09/11/16 Losartan Potassium [Cozaar 100 mg Tablet] 100 mg PO DAILY 08/27/18 Metformin HCl [Metformin HCl ER] 500 mg PO DAILY 08/27/18 Atorvastatin Calcium [Lipitor 40 mg Tablet] 40 mg PO QHS #30 tablet 08/28/18 Hydrochlorothiazide [Hydrodiuril 25 mg Tablet] 50 mg PO QAM #60 tablet 08/28/18 Allergies/Adverse Reactions: amlodipine Allergy (Verified 08/27/18 16:17) lisinopril Allergy (Verified 08/27/18 16:17) Review of Systems Constitutional: ABSENT: chills, fever(s) Eyes: ABSENT: visual disturbances, other - Eye pain Ears: ABSENT: hearing changes, other - ear pain Nose, Mouth, and Throat: ABSENT: mouth pain, sore throat Cardiovascular: ABSENT: chest pain, dyspnea on exertion, edema, orthropnea, palpitations Respiratory: ABSENT: cough, dyspnea Gastrointestinal: ABSENT: abdominal pain, constipation, diarrhea, nausea, vomiting Genitourinary: ABSENT: dysuria, hematuria Musculoskeletal: ABSENT: back pain, deformity, joint swelling Integumentary: ABSENT: pruritus, rash Neurological: PRESENT: as per HPI, abnormal gait, abnormal speech, focal weakness, lack of coordination. ABSENT: confusion, convulsions, dizziness, memory loss, numbness, paresthesias, syncope, tremor(s) Psychiatric: ABSENT: anxiety, depression Endocrine: ABSENT: cold intolerance, heat intolerance Hematologic/Lymphatic: ABSENT: easy bleeding, easy bruising Physical Exam Vital Signs: Temp Pulse Resp BP Pulse Ox 60 16 169/101 H 94 10/04/18 04:10 10/04/18 04:10 10/04/18 04:10 10/04/18 04:10 General appearance: PRESENT: no acute distress, cooperative, obese Head exam: PRESENT: atraumatic, normocephalic Eye exam: PRESENT: conjunctiva pink. ABSENT: scleral icterus Ear exam: PRESENT: normal external ear exam. ABSENT: bleeding Mouth exam: ABSENT: dry mucosa, neck supple Neck exam: ABSENT: JVD, thyromegaly, tracheal deviation Respiratory exam: PRESENT: clear to auscultation isaias, symmetrical, unlabored Cardiovascular exam: PRESENT: RRR. ABSENT: clicks, gallop, rubs Pulses: PRESENT: normal radial pulses, normal dorsalis pedis pul GI/Abdominal exam: PRESENT: normal bowel sounds, soft. ABSENT: tenderness Rectal exam: PRESENT: deferred Extremities exam: ABSENT: joint swelling, pedal edema Musculoskeletal exam: PRESENT: other - Mild right iliana-plegia with decreased fine motor functions in both the upper and lower extremity. ABSENT: deformity, dislocation Neurological exam: PRESENT: alert, awake, oriented to person, oriented to place, oriented to time, oriented to situation, motor sensory deficit - Mild right hemiplegia. ABSENT: CN II-XII grossly intact - Mild dysarthria and minimal right facial weakness Psychiatric exam: PRESENT: appropriate affect, normal mood Skin exam: PRESENT: dry, intact, warm. ABSENT: jaundice, rash, urticaria Results Laboratory Results: 10/04/18 04:15 10/04/18 04:15 10/04/18 10/04/18 04:15 04:15 WBC 7.2 RBC 5.73 H Hgb 15.8 Hct 47.7 MCV 83 MCH 27.6 MCHC 33.2 RDW 15.1 H Plt Count 131 L Seg Neutrophils % 61.3 Lymphocytes % 25.6 Monocytes % 8.2 Eosinophils % 4.3 Basophils % 0.6 Absolute Neutrophils 4.4 Absolute Lymphocytes 1.8 Absolute Monocytes 0.6 Absolute Eosinophils 0.3 Absolute Basophils 0.0 Sodium 145.0 Potassium 3.5 L Chloride 103 Carbon Dioxide 30 Anion Gap 12 BUN 16 Creatinine 0.90 Est GFR ( Amer) > 60 Est GFR (Non-Af Amer) > 60 Glucose 182 H Calcium 9.8 Total Bilirubin 0.7 AST 24 ALT 24 Alkaline Phosphatase 87 Total Protein 7.8 Albumin 4.6 10/04/18 10/04/18 04:15 04:15 Creatine Kinase 27 L CK-MB (CK-2) 0.66 Troponin I 0.012 Impressions: Chest X-Ray 10/04/18 04:10 IMPRESSION: No acute findings. No focal lung consolidation. Head CT 10/04/18 04:10 IMPRESSION: No acute intracranial abnormalities. Assessment & Plan - Diagnosis (1) Acute ischemic left middle cerebral artery (MCA) stroke Is this a current diagnosis for this admission?: Yes Plan: Patient is admitted to telemetry mu[facility] for cardiac monitoring. Additionally he will have a full stroke protocol with evaluation by PT, OT, speech therapy as well as around the clock nursing evaluation and a multidisciplinary ongoing evaluation and reevaluation to aid and attaining his best possible outcome. He will have an MRI of the head without contrast and an MRA of the head and of the neck performed today. He is being treated with Plavix 75 mg p.o. daily and aspirin 81 mg p.o. daily. (2) History of diabetes mellitus, type II Is this a current diagnosis for this admission?: Yes Plan: Patient will be continued on his current diabetic therapy and a hemoglobin A1c will be obtained to evaluate his therapies efficacy. Additionally he will have a sliding scale before meals and at bedtime Humulin insulin for control of hyperglycemia. (3) Hypertension Qualifiers: Hypertension type: essential hypertension Qualified Code(s): I10 - Essential (primary) hypertension Is this a current diagnosis for this admission?: Yes Plan: Patient will be continued on his current antihypertensive regimen with supplemental labetalol IV as needed to maintain a blood pressure under 160 systolic and under 100 diastolic. Adjustments to his usual antihypertensive regiment will include reducing his usual dose of hydrochlorothiazide from 50 mg daily to 12.5 mg daily. (4) Paroxysmal atrial fibrillation Is this a current diagnosis for this admission?: Yes Plan: The patient will be treated for any paroxysmal atrial fibrillation events that occur as required. Consideration of paroxysmal atrial fibrillation as a possible cause of his stroke will need to be evaluated on an ongoing basis. - Time Time Spent: 30 to 50 Minutes Smoking Cessation Education: 3 to 10 minutes Medications reviewed and adjusted accordingly: Yes Anticipated discharge: SNF, Acute Rehab - Inpatient Certification Based on my medical assessment, after consideration of the patient's comorbidities, presenting symptoms, or acuity I expect that the services needed warrant INPATIENT care.: Yes I certify that my determination is in accordance with my understanding of Medicare's requirements for reasonable and necessary INPATIENT services [42 CFR 412.3e].: Yes Medical Necessity: Significant Comorbidiites Make Outpatient Treatment Too Risky, Need Close Monitoring Due to Risk of Patient Decompensation, Need For Continuous Telemetry Monitoring, Need for Neurological Checks, Risk of Complication if Not Cared For in Hospital
[2018-10-04] MEDS: HYDROCHLOROTHIAZIDE 25 MG TABLET PO SCH ×2 (08:17→10:49)
[2018-10-04] MEDS: METFORMIN HCL 500 MG TABLET PO SCH ×2 (08:17→17:04)
[2018-10-04] MEDS: PROPAFENONE HCL 150 MG TABLET PO SCH ×3 (08:17→21:21)
[2018-10-04] MEDS: LEVOTHYROXINE SODIUM 0.025 MG TABLET PO SCH (08:17)
[2018-10-04] MEDS: FONDAPARINUX SODIUM INJ 2.5 MG/0.5 ML DISP.SYRIN SUBCUT SCH ×2 (08:17→11:22)
--- NOTE | 2018-10-04 08:59 | EKG REPORT ---
SEVERITY:- ABNORMAL ECG - SINUS RHYTHM RBBB AND LAFB PROBABLE LEFT VENTRICULAR HYPERTROPHY : Confirmed by: Oren Rangel MD 04-Oct-2018 08:59:09
[2018-10-04] MEDS ORDERED: LEVOTHYROXINE SODIUM 25 MCG PO SCH (10:00)
[2018-10-04] MEDS ORDERED: (PENDING PHARMACY ID) (Metformin Hcl [Metformin Hcl Er] 500 MG) PO SCH (10:00)
[2018-10-04] MEDS ORDERED: LOSARTAN POTASSIUM 50 MG TABLET PO SCH (10:00)
[2018-10-04] MEDS: CLOPIDOGREL BISULFATE 75 MG TABLET PO SCH (10:50)
[2018-10-04] MEDS: TAMSULOSIN HCL 0.4 MG CAP.SR.24H PO SCH (10:50)
[2018-10-04] MEDS: FAMOTIDINE 20 MG TABLET PO SCH ×2 (10:50→21:20)
[2018-10-04] MEDS: ASPIRIN 81 MG TABLET, ENT COATED PO SCH (10:52)
[2018-10-04] MEDS: POTASSIUM CHLORIDE 10 MEQ CAPSULE.ER PO SCH (10:53)
[2018-10-04] MEDS: GABAPENTIN 300 MG CAPSULE PO SCH ×2 (10:54→17:04)
[2018-10-04] MEDS: PAROXETINE HCL 20 MG TABLET PO SCH (10:54)
[2018-10-04] MEDS: INSULIN REG, HUMAN 100 UNIT/ML 3 ML VIAL (PYX) SUBCUT PRN ×2 (13:19→17:05)
[2018-10-04 13:42] LABS: APPEARANCE,URINE CLEAR; BILIRUBIN,URINE NEGATIVE (NEGATIVE); COLOR,URINE YELLOW; GLUCOSE, URINE 50 mg/dL (NEGATIVE); KETONES,URINE NEGATIVE (NEGATIVE); LEUKOCYTE ESTERASE,URINE NEGATIVE (NEGATIVE); NITRITE,URINE NEGATIVE (NEGATIVE); PROTEIN,URINE 30 mg/dL (NEGATIVE); UROBILINOGEN,URINE NEGATIVE mg/dL (<2.0)
--- NOTE | 2018-10-04 14:57 | Progress Note ---
Provider Note Provider Note: This is 78 years old male patient with past medical history of A. fib, hyperlipidemia, hypertension, coronary artery disease, depression, admitted this morning with impression of acute ischemic stroke. Patient reports this he woke up with right upper and lower extremity weakness and slurred speech at about [address] head is negative for acute intracranial process. Patient refused to take anticoagulation because he was advised by his primary harness preparer Dr. Haro at [facility]. He is evaluated by the speech therapist and passed swallow test. I reviewed his labs and medications. Accept this patient I will be his primary attending.
[2018-10-04] MEDS ORDERED: METFORMIN HCL 500 MG TABLET PO ONE (19:00)
[2018-10-04] MEDS: ATORVASTATIN CALCIUM 40 MG TABLET PO SCH (21:20)
[2018-10-05] MEDS ORDERED: LABETALOL HCL INJ 20 MG/4 ML DISP.SYRIN IV ONE (00:35)
[2018-10-05] MEDS: LABETALOL HCL INJ 20 MG/4 ML DISP.SYRIN IV PRN (00:41)
[2018-10-05] MEDS ORDERED: MORPHINE SULFATE INJ PF 2 MG/2 ML AMPULE IV PRN (01:36)
[2018-10-05] MEDS ORDERED: DIPHENHYDRAMINE HCL 50 MG/ML VIAL IV ONE (02:00)
[2018-10-05 05:56] LABS: HEMATOCRIT 44.7 % (37.9-51.0); MEAN CORPUSCULAR HEMOGLOBIN 28.1 pg (27.0-33.4); MEAN CORPUSCULAR HGB CONC 33.5 g/dL (32.0-36.0); MEAN CORPUSCULAR VOLUME 84 fl (80-97); PLATELET COUNT 118 10^3/uL (150-450); RED BLOOD COUNT 5.33 10^6/uL (4.35-5.55); WHITE BLOOD COUNT 7.8 10^3/uL (4.0-10.5)
[2018-10-05 06:12] LABS: ANION GAP 8 (5-19); BLOOD UREA NITROGEN 15 mg/dL (7-20); CALCIUM 9.6 mg/dL (8.4-10.2); CARBON DIOXIDE 33 mmol/L (22-30); CHLORIDE 102 mmol/L (98-107); CHOLESTEROL 137.26 mg/dL (0-200); GLUCOSE 185 mg/dL (75-110); SODIUM 142.5 mmol/L (137-145); TRIGLYCERIDES 215 mg/dL (<150)
[2018-10-05 06:21] LABS: POTASSIUM 3.1 mmol/L (3.6-5.0)
[2018-10-05] MEDS: LEVOTHYROXINE SODIUM 0.025 MG TABLET PO SCH (06:22)
[2018-10-05] MEDS: PROPAFENONE HCL 150 MG TABLET PO SCH ×3 (06:22→21:50)
[2018-10-05 06:23] LABS: DIRECT LDL 73 mg/dL (<100)
[2018-10-05] MEDS: FONDAPARINUX SODIUM INJ 2.5 MG/0.5 ML DISP.SYRIN SUBCUT SCH (08:57)
[2018-10-05] MEDS: METFORMIN HCL 500 MG TABLET PO SCH ×2 (08:57→18:36)
[2018-10-05] MEDS: TAMSULOSIN HCL 0.4 MG CAP.SR.24H PO SCH (09:00)
[2018-10-05] MEDS: HYDROCHLOROTHIAZIDE 25 MG TABLET PO SCH (09:00)
[2018-10-05] MEDS: POTASSIUM CHLORIDE 10 MEQ CAPSULE.ER PO SCH (09:00)
[2018-10-05] MEDS: CLOPIDOGREL BISULFATE 75 MG TABLET PO SCH (09:00)
[2018-10-05] MEDS: ASPIRIN 81 MG TABLET, ENT COATED PO SCH (09:00)
[2018-10-05] MEDS: FAMOTIDINE 20 MG TABLET PO SCH ×2 (09:00→21:50)
[2018-10-05] MEDS: PAROXETINE HCL 20 MG TABLET PO SCH (09:01)
[2018-10-05] MEDS: GABAPENTIN 300 MG CAPSULE PO SCH ×2 (09:01→18:35)
[2018-10-05] MEDS: LOSARTAN POTASSIUM 50 MG TABLET PO SCH (09:09)
[2018-10-05] MEDS ORDERED: ERGOCALCIFEROL (VITAMIN D2) 50000 UNIT (1.25 MG) CAPSULE PO SCH (10:00)
[2018-10-05] MEDS ORDERED: POTASSIUM CHLORIDE 10 MEQ CAPSULE.ER PO ONE (12:30)
[2018-10-05] MEDS: INSULIN REG, HUMAN 100 UNIT/ML 3 ML VIAL (PYX) SUBCUT PRN ×3 (12:48→22:29)
--- NOTE | 2018-10-05 16:35 | PDOC PROGRESS REPORT ---
Subjective Progress Note for:: 10/05/18 Subjective:: This is 78 years old male patient with past medical history of A. fib, hyperlipidemia, hypertension, coronary artery disease, depression, admitted this morning with impression of acute ischemic stroke. Patient reports this he woke up with right upper and lower extremity weakness and slurred speech at about [address] head is negative for acute intracranial process. Patient refused to take anticoagulation because he was advised not to take anticoagulant by his primary earth science teacher Dr. Haro at [facility]. He is evaluated by the speech therapist and passed swallow test. MRI of the brain could not be done since patient has a pacemaker. This morning I seen patient resting in bed. His vitals are relatively stable. Patient still has some slurred speech. Reason For Visit: ACUTE ISCHEMIC INFARCTION LEFT MIDDLE CEREBRAL Physical Exam Vital Signs: Temp Pulse Resp BP Pulse Ox 97.4 F 60 18 188/86 H 91 L 10/05/18 11:50 10/05/18 12:00 10/05/18 12:00 10/05/18 12:00 10/05/18 12:00 Intake & Output 10/04/18 10/05/18 10/06/18 06:59 06:59 06:59 Intake Total 1112 625 Output Total 300 Balance 812 625 Weight 117.5 kg General appearance: PRESENT: no acute distress Eye exam: PRESENT: conjunctiva pink Mouth exam: PRESENT: moist Neck exam: ABSENT: carotid bruit, JVD, lymphadenopathy, thyromegaly Respiratory exam: PRESENT: clear to auscultation isaias. ABSENT: rales, rhonchi, wheezes Cardiovascular exam: PRESENT: RRR. ABSENT: diastolic murmur, rubs, systolic murmur GI/Abdominal exam: PRESENT: normal bowel sounds, soft. ABSENT: distended, guarding, mass, organolmegaly, rebound, tenderness Neurological exam: PRESENT: alert, awake, oriented to time, oriented to situation - Has mild right-sided weakness. Psychiatric exam: PRESENT: normal mood Results Laboratory Results: 10/05/18 04:45 10/05/18 04:45 10/05/18 10/05/18 10/05/18 04:45 04:45 04:45 WBC 7.8 RBC 5.33 Hgb 15.0 Hct 44.7 MCV 84 MCH 28.1 MCHC 33.5 RDW 15.0 H Plt Count 118 L Sodium 142.5 Potassium 3.1 L Chloride 102 Carbon Dioxide 33 H Anion Gap 8 BUN 15 Creatinine 0.96 Est GFR ( Amer) > 60 Est GFR (Non-Af Amer) > 60 Glucose 185 H Calcium 9.6 Triglycerides 215 H Cholesterol 137.26 LDL Cholesterol Direct 73 VLDL Cholesterol 43.0 H HDL Cholesterol 22 L TSH 2.95 10/04/18 10/04/18 04:15 04:15 Creatine Kinase 27 L CK-MB (CK-2) 0.66 Troponin I 0.012 Impressions: Chest X-Ray 10/04/18 04:10 IMPRESSION: No acute findings. No focal lung consolidation. Head CT 10/04/18 04:10 IMPRESSION: No acute intracranial abnormalities. Assessment & Plan - Diagnosis (1) Acute ischemic stroke Is this a current diagnosis for this admission?: Yes Plan: Patient has been started on aspirin, Plavix and Lipitor. (2) Coronary artery disease Is this a current diagnosis for this admission?: Yes Plan: No anginal symptoms (3) Paroxysmal A-fib Is this a current diagnosis for this admission?: Yes Plan: Rate controlled (4) Type 2 diabetes mellitus Is this a current diagnosis for this admission?: Yes Plan: Continue current treatment (5) Hyperlipidemia Qualifiers: Hyperlipidemia type: unspecified Qualified Code(s): E78.5 - Hyperlipidemia, unspecified Is this a current diagnosis for this admission?: Yes Plan: Continue Lipitor (6) Hypertension Is this a current diagnosis for this admission?: Yes Plan: Continue current medications.
[2018-10-05] MEDS ORDERED: METFORMIN HCL 500 MG TABLET PO SCH (18:00)
[2018-10-05] MEDS: ATORVASTATIN CALCIUM 40 MG TABLET PO SCH (21:50)
--- NOTE | 2018-10-05 22:41 | XCELERA REPORT ---
[address] [address] Transthoracic Echocardiogram Report Name: VIKTORIA THOMAS Age: 78 yrs Gender: Male : 1940 Patient Status: Inpatient Patient Location: [address] [place], [place] [address] Study Date: 10/05/2018 05:42 PM Height: 72 in Weight: 259 lb BSA: 2.4 m2 Procedure: A two-dimensional transthoracic echocardiogram with color flow and Doppler was performed. Study Quality: Technically suboptimal. The study was technically difficult with many images being suboptimal in quality. Images were not obtained from all of the standard acoustic windows due to the limited scope of the study. Reason For Study: Acute ischemic stroke History: CVA. Ordering Physician: CORINE SOTO Performed By: Michelle Maddox Interpretation Summary Not a good study to assess for cardiac source of emboli.Recommend LEMUEL if clinical suspicionis high. Study Quality: Technically suboptimal. The study was technically difficult with many images being suboptimal in quality. Images were not obtained from all of the standard acoustic windows due to the limited scope of the study. The left ventricle is normal in size. There is mild concentric left ventricular hypertrophy. No True apical 2 chamber views obtained.Hence cannot comment on the apical anterior , the basal anterior, the basal inferior and apical inferior thornton.The mid anterior , the mid inferior and the rest of the LV thornton contract normally. .Normal LVEF is normal and is greater than 65% in the limited views. Doppler measurements suggest impaired left ventricular relaxation, which is associated with grade I/IV or mild diastolic dysfunction There is no thrombus. The right ventricle is not well visualized secondary to technical limitations The left atrial size is normal. There is no evidence of mitral valve prolapse. There is no vegetation seen on the mitral valve. There is no mitral valve stenosis. There is a trace amount of mitral regurgitation There is no aortic valvular vegetation. There is no aortic valve stenosis There is aortic sclerosis without aortic stenosis. There is no LVOT obstruction. There is a trace amount of aortic regurgitation There is no tricuspid stenosis. There is a trace amount of tricuspid regurgitation Right ventricular systolic pressure is normal. RVSP is 22to 27 mm of Hg , with RA mean of 5 to 10. The aortic root is normal size. The inferior vena cava appeared normal and decreased > 50% with respiration (RAP 5-10 mmHg) There is no pericardial effusion. Not a good study to assess for cardiac source of emboli.Recommend LEMUEL if clinical suspicionis high. MMode/2D Measurements & Calculations RVDd: 2.9 cm LVIDd: 5.7 cm FS: 36.5 % Ao root diam: 3.0 cm IVSd: 1.3 cm LVIDs: 3.6 cm EDV(Teich): 157.2 ml Ao root area: 7.0 cm2 LVPWd: 1.2 cm ESV(Teich): 54.1 ml LA dimension: 3.7 cm EF(Teich): 65.6 % Doppler Measurements & Calculations MV E max tianna: MV P1/2t max tianna: Ao V2 max: AI max tianna: 59.2 cm/sec 93.8 cm/sec 154.6 cm/sec 211.1 cm/sec MV A max tianna: MV P1/2t: 69.1 msec Ao max PG: AI max P.9 cm/sec MVA(P1/2t): 3.2 cm2 9.6 mmHg 17.8 mmHg MV E/A: 0.70 MV dec slope: AI dec slope: 49.1 cm/sec2 397.7 cm/sec2 AI P1/2t: 1259 msec MV dec time: 0.30 sec LV V1 max PG: TV V2 max: PA V2 max: TR max tianna: 6.6 mmHg 129.0 cm/sec 105.9 cm/sec 206.3 cm/sec LV V1 max: TV max P.7 mmHg PA max PG: TR max P.3 cm/sec 4.5 mmHg 17.0 mmHg AV P1/2t-pr_phl: MV P1/2t-pr_phl: 1259 msec 69.1 msec Left Ventricle The left ventricle is normal in size. There is mild concentric left ventricular hypertrophy. No True apical 2 chamber views obtained.Hence cannot comment on the apical anterior , the basal anterior, the basal inferior and apical inferior thornton.The mid anterior , the mid inferior and the rest of the LV thornton contract normally. .Normal LVEF is normal and is greater than 65% in the limited views. Doppler measurements suggest impaired left ventricular relaxation, which is associated with grade I/IV or mild diastolic dysfunction. There is no thrombus. Right Ventricle The right ventricle is not well visualized secondary to technical limitations. Atria Right atrium not well visualized secondary to technical limitations. The left atrial size is normal. Mitral Valve There is no evidence of mitral valve prolapse. There is no vegetation seen on the mitral valve. There is no mitral valve stenosis. There is a trace amount of mitral regurgitation. Aortic Valve There is no aortic valvular vegetation. There is no aortic valve stenosis. There is aortic sclerosis without aortic stenosis. There is no LVOT obstruction. There is a trace amount of aortic regurgitation. Tricuspid Valve There is no tricuspid stenosis. There is a trace amount of tricuspid regurgitation. Right ventricular systolic pressure is normal. RVSP is 22to 27 mm of Hg , with RA mean of 5 to 10. Pulmonic Valve There is no pulmonic valvular stenosis. There is no pulmonic valvular regurgitation. Great Vessels The aortic root is normal size. The inferior vena cava appeared normal and decreased > 50% with respiration (RAP 5-10 mmHg). Effusions There is no pericardial effusion. : CORINE SOTO > Ama Blevins
[2018-10-06] MEDS: LABETALOL HCL INJ 20 MG/4 ML DISP.SYRIN IV PRN (00:31)
[2018-10-06] MEDS: LEVOTHYROXINE SODIUM 0.025 MG TABLET PO SCH (05:03)
[2018-10-06] MEDS: PROPAFENONE HCL 150 MG TABLET PO SCH (05:03)
[2018-10-06 06:34] LABS: HEMATOCRIT 45.7 % (37.9-51.0); HEMOGLOBIN 15.3 g/dL (13.5-17.0); MEAN CORPUSCULAR HEMOGLOBIN 28.1 pg (27.0-33.4); MEAN CORPUSCULAR HGB CONC 33.5 g/dL (32.0-36.0); MEAN CORPUSCULAR VOLUME 84 fl (80-97); PLATELET COUNT 121 10^3/uL (150-450); RED BLOOD COUNT 5.44 10^6/uL (4.35-5.55); WHITE BLOOD COUNT 6.3 10^3/uL (4.0-10.5)
[2018-10-06 07:03] LABS: ANION GAP 11 (5-19); BLOOD UREA NITROGEN 16 mg/dL (7-20); CALCIUM 10.1 mg/dL (8.4-10.2); CARBON DIOXIDE 30 mmol/L (22-30); CHLORIDE 102 mmol/L (98-107); GLUCOSE 146 mg/dL (75-110); POTASSIUM 3.4 mmol/L (3.6-5.0); SODIUM 143.4 mmol/L (137-145)
[2018-10-06] MEDS: METFORMIN HCL 500 MG TABLET PO SCH (08:18)
[2018-10-06] MEDS: HYDROCHLOROTHIAZIDE 25 MG TABLET PO SCH (08:19)
[2018-10-06] MEDS: FONDAPARINUX SODIUM INJ 2.5 MG/0.5 ML DISP.SYRIN SUBCUT SCH (08:26)
[2018-10-06] MEDS: POTASSIUM CHLORIDE 10 MEQ CAPSULE.ER PO SCH (09:06)
[2018-10-06] MEDS: LOSARTAN POTASSIUM 50 MG TABLET PO SCH (09:07)
[2018-10-06] MEDS: GABAPENTIN 300 MG CAPSULE PO SCH (09:08)
[2018-10-06] MEDS: TAMSULOSIN HCL 0.4 MG CAP.SR.24H PO SCH (09:08)
[2018-10-06] MEDS: PAROXETINE HCL 20 MG TABLET PO SCH (09:08)
[2018-10-06] MEDS: CLOPIDOGREL BISULFATE 75 MG TABLET PO SCH (09:08)
[2018-10-06] MEDS: FAMOTIDINE 20 MG TABLET PO SCH (09:09)
[2018-10-06] MEDS: ASPIRIN 81 MG TABLET, ENT COATED PO SCH (09:10)
--- NOTE | 2018-10-06 10:14 | PDOC DISCHARGE SUMMARY ---
General - Admit/Disc Date/PCP Admission Date/Primary Care Provider: 10/04/18 05:47 RICH NORRIS, Discharge Date: 10/06/18 - Discharge Diagnosis (1) Acute ischemic stroke Is this a current diagnosis for this admission?: Yes (2) Coronary artery disease Is this a current diagnosis for this admission?: Yes (3) Paroxysmal A-fib Is this a current diagnosis for this admission?: Yes (4) Type 2 diabetes mellitus Is this a current diagnosis for this admission?: Yes (5) Hyperlipidemia Is this a current diagnosis for this admission?: Yes (6) Hypertension Is this a current diagnosis for this admission?: Yes - Additional Information Resuscitation Status: Full Code Home Medications: Aspirin [Adult Low Dose Aspirin EC] 81 mg PO DAILY 10/04/18 Ergocalciferol (Vitamin D2) [Drisdol 50,000 Unit (1.25MG) Capsule] 50,000 unit PO MO@1000 10/04/18 Hydrochlorothiazide [Hydrodiuril 25 mg Tablet] 25 mg PO DAILY 10/04/18 Levothyroxine Sodium [Synthroid 0.112 mg Tablet] 112 mcg PO Q6AM 10/04/18 Losartan Potassium [Cozaar 100 mg Tablet] 100 mg PO DAILY 10/04/18 Metformin HCl [Glucophage] 1,000 mg PO QAM 10/04/18 Metformin HCl [Glucophage] 1,000 mg PO QPM 10/04/18 Metformin HCl [Glucophage] 500 mg PO NOON 10/04/18 Paroxetine HCl [Paxil 20 mg Tablet] 20 mg PO DAILY 10/04/18 Amlodipine Besylate [Norvasc 10 mg Tablet] 10 mg PO DAILY 10/05/18 Gabapentin [Neurontin 300 mg Capsule] 600 mg PO Q8 10/05/18 Potassium Chloride [Klor-Con 10 Meq Capsule ER] 20 meq PO DAILY 10/05/18 Propafenone HCl [Rythmol Sr] 225 mg PO Q8 10/05/18 Tamsulosin HCl [Flomax 0.4 mg Cap.sr] 0.4 mg PO DAILY 10/05/18 History of Present Illness History of Present Illness: VIKTORIA THOMAS is a 78 year old male Hospital Course Hospital Course: This is 78 years old male patient with past medical history of A. fib, hyperlipidemia, hypertension, coronary artery disease, depression, admitted this morning with impression of acute ischemic stroke. Patient reports this he woke up with right upper and lower extremity weakness and slurred speech at about [address] head is negative for acute intracranial process. Patient refused to take anticoagulation because he was advised not to take anticoagulant by his primary extrusion former Dr. Haro at [facility]. He is evaluated by the speech therapist and passed swallow test. MRI of the brain could not be done since patient has a pacemaker. Patient is seen and examined at bedside. He is a strength on his right side is improving. His speech has improved. Yesterday patient was evaluated by physical therapist who recommended [facility] facility [facility] for rehab but patient opted out and he rather prefer to go home and have home health. Patient states he has a strong family support. Patient is stable enough for discharge today. I will continue all his home medication. Regarding anticoagulation for his A. fib I advised him to check with his primary extrusion former Dr. Haro at [facility]. Physical Exam Vital Signs: Temp Pulse Resp BP Pulse Ox 97.9 F 60 18 175/79 H 97 10/06/18 08:00 10/06/18 08:00 10/06/18 08:00 10/06/18 08:00 10/06/18 08:00 Intake & Output 10/05/18 10/06/18 10/07/18 06:59 06:59 06:59 Intake Total 1112 2075 Output Total 300 Balance 812 2075 Weight 117.5 kg 117.5 kg General appearance: PRESENT: no acute distress Head exam: PRESENT: atraumatic Eye exam: PRESENT: conjunctiva pink Mouth exam: PRESENT: moist Respiratory exam: PRESENT: clear to auscultation isaias. ABSENT: rales, rhonchi, wheezes Cardiovascular exam: PRESENT: RRR. ABSENT: diastolic murmur, rubs, systolic murmur GI/Abdominal exam: PRESENT: normal bowel sounds, soft. ABSENT: distended, guard ing, mass, organolmegaly, rebound, tenderness Neurological exam: PRESENT: alert, awake, oriented to time, oriented to situation Results Laboratory Results: 10/06/18 05:36 10/06/18 05:36 10/06/18 10/06/18 05:36 05:36 WBC 6.3 RBC 5.44 Hgb 15.3 Hct 45.7 MCV 84 MCH 28.1 MCHC 33.5 RDW 15.0 H Plt Count 121 L Sodium 143.4 Potassium 3.4 L Chloride 102 Carbon Dioxide 30 Anion Gap 11 BUN 16 Creatinine 0.93 Est GFR ( Amer) > 60 Est GFR (Non-Af Amer) > 60 Glucose 146 H Calcium 10.1 10/04/18 10/04/18 04:15 04:15 Creatine Kinase 27 L CK-MB (CK-2) 0.66 Troponin I 0.012 Impressions: Chest X-Ray 10/04/18 04:10 IMPRESSION: No acute findings. No focal lung consolidation. Head CT 10/04/18 04:10 IMPRESSION: No acute intracranial abnormalities. Qualifiers - * PATIENT BEING DISCHARGED WITH ANY OF THE FOLLOWING DIAGNOSIS: No
[2018-10-06 10:47] VITALS: BP 175/79
== END 2018-10-06 11:48 | disposition home health service (06) | DRG 66 ==
LOC: ER 04:00 → EH 05:47 → 3N 12:22
PROVIDERS: ADMIT Emergency Medicine; ATTEND Emergency Medicine
DX: I63.512 Cerebral infarction due to unspecified occlusion or stenosis of left middle cerebral artery (principal); I63.9 Cerebral infarction, unspecified; E11.9 Type 2 diabetes mellitus without complications; E78.5 Hyperlipidemia, unspecified; I10 Essential (primary) hypertension; I48.0 Paroxysmal atrial fibrillation; Z95.0 Presence of cardiac pacemaker; R47.81 Slurred speech; R29.810 Facial weakness; R27.0 Ataxia, unspecified; I25.10 Atherosclerotic heart disease of native coronary artery without angina pectoris; Z96.653 Presence of artificial knee joint, bilateral; R47.1 Dysarthria and anarthria; E03.9 Hypothyroidism, unspecified; M15.9 Polyosteoarthritis, unspecified; Z87.891 Personal history of nicotine dependence; Z82.49 Family history of ischemic heart disease and other diseases of the circulatory system; Z79.899 Other long term (current) drug therapy; F32.9 Major depressive disorder, single episode, unspecified; Z90.49 Acquired absence of other specified parts of digestive tract; Z79.82 Long term (current) use of aspirin; Z79.84 Long term (current) use of oral hypoglycemic drugs
CPT/HCPCS: 36415; 70450; 71045; 80048; 80053; 80061; 81001; 82550; 82553; 82962; 83036; 84439; 84443; 84481; 84484; 85025; 85027; 85610; 85730; 93005; 93010; 93306; 99285; J1200; J1652; J1815; J2300; J3490

== ENCOUNTER 2018-12-11 07:25 | Day surgery (SDC) | payer MEDICARE, OTHER ==
[~2018-12-11 07:25] MED LIST: PROPOFOL INJ 200 MG/20 ML VIAL IV ONE
[2018-12-11] MEDS ORDERED: PROPOFOL INJ 200 MG/20 ML VIAL IV ONE (08:58)
[2018-12-11 09:56] VITALS: BP 193/97
--- NOTE | 2018-12-11 11:52 | Operative Report ---
Operative Report DATE OF SURGERY: 12/11/18 Operative Report: The risks, benefits and alternatives of the procedure including the risk of bleeding, perforation requiring surgery have been explained to the patient in detail and informed consent has been obtained. The patient is brought back to the endoscopy suite and placed in the left, lateral decubital position. Timeout was called. Propofol medication is administered. Rectal examination is done which did not reveal any masses, tears or fissures. An Olympus videoscope was introduced into the patient's rectum. The scope was then carefully advanced all the way to the cecum. Cecum was identified by the usual anatomical landmarks including the ileocecal valve as well as the appendiceal office. Photodocumentation is obtained. The scope was then sequentially pulled back via the various segments of the colon including the ascending colon, hepatic flexure, transverse colon, splenic flexure, descending colon and finally into the rectosigmoid portions of the colon. Retroflexion maneuvers performed. PREOPERATIVE DIAGNOSIS: Positive Cologuard testing POSTOPERATIVE DIAGNOSIS: Colon polyp was removed via snare polypectomy and retrieved, this was noted in the descending colon. Diverticulosis without any e vidence of diverticulitis. Internal hemorrhoids. Small right side colon inflammation status post biopsy OPERATION: Colonoscopy with snare polypectomy. Colonoscopy with biopsy SURGEON: KEKE PAULINO ANESTHESIA: LMAC TISSUE REMOVED OR ALTERED: As noted above. COMPLICATIONS: None. ESTIMATED BLOOD LOSS: None. INTRAOPERATIVE FINDINGS: As noted above. PROCEDURE: Patient tolerated the procedure well. No immediate postprocedure complications are noted. Patient discharged in good condition. Discharge date 12/11/2018. Discharge diet: Regular. Discharge activity: Regular. 2 to 3-week follow-up to discuss findings. Wait on the pathology. Patient is instructed call the office or proceed to the emergency room should there be any further proximal questions. 5-year surveillance colonoscopy.
== END 2018-12-11 09:50 | disposition home or self-care (01) ==
LOC: END 07:25
PROVIDERS: ATTEND Internal Medicine Gastroenterology
DX: D12.4 Benign neoplasm of descending colon (principal); K57.30 Diverticulosis of large intestine without perforation or abscess without bleeding; K64.8 Other hemorrhoids; K52.9 Noninfective gastroenteritis and colitis, unspecified; I10 Essential (primary) hypertension; E11.9 Type 2 diabetes mellitus without complications; Z86.73 Personal history of transient ischemic attack (TIA), and cerebral infarction without residual deficits; M94.0 Chondrocostal junction syndrome [Tietze]; R06.02 Shortness of breath; R00.1 Bradycardia, unspecified; I48.91 Unspecified atrial fibrillation; E07.9 Disorder of thyroid, unspecified; G47.30 Sleep apnea, unspecified; F17.210 Nicotine dependence, cigarettes, uncomplicated; Z79.899 Other long term (current) drug therapy; Z88.8 Allergy status to other drugs, medicaments and biological substances; Z79.84 Long term (current) use of oral hypoglycemic drugs; Z95.0 Presence of cardiac pacemaker; Z13.89 Encounter for screening for other disorder
CPT/HCPCS: 45380; 45385; 82962; 88305 ×2; J2704; 811

== ENCOUNTER 2019-09-08 17:53 | Observation (INO) | payer MEDICARE, OTHER ==
--- NOTE | 2019-09-08 18:30 | RADIOLOGY REPORT (SQ) ---
EXAM DESCRIPTION: CT HEAD WITHOUT COMPLETED DATE/TIME: 09/08/2019 6:20 pm REASON FOR STUDY: bed 20 r/o stroke COMPARISON: 10/04/2018 TECHNIQUE: Axial images acquired through the brain without intravenous contrast. Images reviewed wi th bone, brain and subdural windows. Additional sagittal and coronal reconstructions were generated. Images stored on PACS. All CT scanners at this facility use dose modulation, iterative reconstruction, and/or weight based d osing when appropriate to reduce radiation dose to as low as reasonably achievable (ALARA). [facility]: Dose Right [facility]: CareDose [facility]: Dose Right [facility]: Teradose 4D [facility]: Smart [employer] RADIATION DOSE: CT Rad equipment meets quality standard of care and radiation dose reduction techniq ues were employed. CTDIvol: 53.2 mGy. DLP: 1124 mGy-cm. mGy. LIMITATIONS: None. FINDINGS: VENTRICLES: Normal size and contour. CEREBRUM: No masses. No hemorrhage. No midline shift. No evidence for acute infarction. Areas of l ow density in the white matter most likely chronic small vessel ischemic changes. CEREBELLUM: No masses. No hemorrhage. No alteration of density. No evidence for acute infarction. EXTRAAXIAL SPACES: No fluid collections. No masses. ORBITS AND GLOBE: No intra- or extraconal masses. Normal contour of globe without masses. CALVARIUM: No fracture. PARANASAL SINUSES: No fluid or mucosal thickening. SOFT TISSUES: No mass or hematoma. OTHER: No other significant finding. IMPRESSION: CHRONIC MICROVASCULAR ISCHEMIA. NO ACUTE IMAGING FINDINGS IN THE BRAIN. EVIDENCE OF ACUTE STROKE: NO. COMMENT: Quality ID # [id number]: Final reports with documentation of one or more dose reduction techniques (e.g., Automated exposure control, adjustment of the mA and/or kV according to patient size, use of iterative reconstruction technique) TECHNICAL DOCUMENTATION: JOB ID: [id number] [employer]- All Rights Reserved Reading location - IP/workstation name: [email or web address]
--- NOTE | 2019-09-08 18:46 | RADIOLOGY REPORT (SQ) ---
EXAM DESCRIPTION: CHEST SINGLE VIEW COMPLETED DATE/TIME: 09/08/2019 6:25 pm REASON FOR STUDY: bed 20 r/o stroke COMPARISON: 10/04/2018 EXAM PARAMETERS: NUMBER OF VIEWS: One view. TECHNIQUE: Single frontal radiographic view of the chest acquired. RADIATION DOSE: NA LIMITATIONS: None. FINDINGS: LUNGS AND PLEURA: No opacities, masses or pneumothorax. No pleural effusion. MEDIASTINUM AND HILAR STRUCTURES: No masses. Contour normal. HEART AND VASCULAR STRUCTURES: Heart normal in size. Normal vasculature. BONES: No acute findings. HARDWARE: Pacemaker. OTHER: No other significant finding. IMPRESSION: NO ACUTE RADIOGRAPHIC FINDING IN THE CHEST. TECHNICAL DOCUMENTATION: JOB ID: [id number] [employer]- All Rights Reserved Reading location - IP/workstation name: [email or web address]
[2019-09-08 19:45] LABS: ABSOLUTE EOSINOPHILS # (AUTO) 0.4 10^3/uL (0.0-0.6); ABSOLUTE LYMPHOCYTES (AUTO) 1.5 10^3/uL (0.5-4.7); ABSOLUTE MONOCYTES (AUTO) 0.6 10^3/uL (0.1-1.4); ABSOLUTE NEUT (AUTO) 3.6 10^3/uL (1.7-8.2); BASOPHILS % (AUTO) 0.5 % (0-2); EOSINOPHILS % (AUTO) 6.3 % (0-6); HEMATOCRIT 44.9 % (37.9-51.0); HEMOGLOBIN 15.2 g/dL (13.5-17.0); LYMPHOCYTES % (AUTO) 24.5 % (13-45); MEAN CORPUSCULAR HEMOGLOBIN 28.2 pg (27.0-33.4); MEAN CORPUSCULAR HGB CONC 33.9 g/dL (32.0-36.0); MEAN CORPUSCULAR VOLUME 83 fl (80-97); MONOCYTES % (AUTO) 9.9 % (3-13); PLATELET COUNT 132 10^3/uL (150-450); RED BLOOD COUNT 5.38 10^6/uL (4.35-5.55); RED CELL DISTRIBUTION WIDTH 15.2 % (11.5-14.0); SEGMENTED NEUTROPHILS % (AUTO) 58.8 % (42-78); TOTAL CELLS COUNTED % (AUTO) 100 %
[2019-09-08 19:49] LABS: INTERNATIONAL RATION (INR) 1.08; PARTIAL THROMBOPLASTIN TIME 29.7 SEC (23.5-35.8)
[2019-09-08 20:12] LABS: ALBUMIN 4.1 g/dL (3.5-5.0); ALKALINE PHOSPHATASE 69 U/L (38-126); ANION GAP 10 (5-19); ASPARTATE AMINO TRANSFERASE 20 U/L (17-59); BILIRUBIN,DIRECT 0.3 mg/dL (0.0-0.4); BILIRUBIN,TOTAL 0.4 mg/dL (0.2-1.3); BLOOD UREA NITROGEN 18 mg/dL (7-20); CALCIUM 9.8 mg/dL (8.4-10.2); CARBON DIOXIDE 33 mmol/L (22-30); CHLORIDE 98 mmol/L (98-107); CREATINE KINASE 21 U/L (55-170); GLUCOSE 207 mg/dL (75-110); POTASSIUM 3.1 mmol/L (3.6-5.0); TOTAL PROTEIN 7.4 g/dL (6.3-8.2)
[2019-09-08 20:18] LABS: CREATINE KINASE MB 0.82 ng/mL (<4.55)
[2019-09-08 20:20] LABS: TROPONIN I < 0.012 ng/mL
[2019-09-08] MEDS ORDERED: DOCUSATE SODIUM 100 MG CAPSULE PO PRN (20:33)
[2019-09-08] MEDS ORDERED: MAGNESIUM HYDROXIDE SUSP 30 ML UDCUP PO PRN (20:33)
--- NOTE | 2019-09-08 20:33 | ER Document Report ---
ED General - General Chief Complaint: Numbness of Arm Stated Complaint: TINGLING ON LEFT SIDE Time Seen by Provider: 09/08/19 18:06 Primary Care Provider: HOWARD CARSON RESIDENTIAL THERAPIST [Primary Care Provider] - Follow up as needed Information source: Patient, Relative TRAVEL OUTSIDE OF THE [place] IN LAST 30 DAYS: No - HPI Onset: Just prior to arrival Onset/Duration: Sudden Quality of pain: No pain Severity: Moderate Pain Level: Denies Associated symptoms: Other - numbness, tingling, and weakness on left. electrical like pain in back of head Exacerbated by: Denies Relieved by: Denies Similar symptoms previously: Yes - patient has had this happen 3 other times Recently seen / treated by doctor: No Notes: 79 year old male with a history of Prior TIAs, HTN, HLD, SVT and AFib s/p AICD here for left sided weakness, numbness, and tingling which started abruptly today. The patient says he has had this happen on 4 other occasions in his life and he has bee told they are likely TIAs. The patient is only on aspirin for anticoagulation however. The patient also says he has had an electrical explosion sensation in the back of his head off and on for years and he had this happen today as well. The patient says his symptoms have improved on their own since coming to the ER. The time of onset was 5pm. - Related Data Allergies/Adverse Reactions: amlodipine Allergy (Verified 08/27/18 16:17) lisinopril Allergy (Verified 08/27/18 16:17) Past Medical History - General Information source: Patient - Social History Smoking Status: Former Smoker Frequency of alcohol use: Occasional Drug Abuse: None Family History: CAD. denies: DM, Hypertension, Malignancy Patient has suicidal ideation: No Patient has homicidal ideation: No - Past Medical History Cardiac Medical History: Reports: Hx Atrial Fibrillation, Hx Coronary Artery Disease, Hx Hypercholesterolemia, Hx Hypertension Denies: Hx Heart Attack Pulmonary Medical History: Denies: Hx Asthma, Hx Bronchitis, Hx COPD, Hx Pneumonia, Hx Tuberculosis Neurological Medical History: Reports: Hx Cerebrovascular Accident - WEAKNESS LEFT SIDE. Denies: Hx Seizures Endocrine Medical History: Reports: Hx Diabetes Mellitus Type 1, Hx Diabetes Mellitus Type 2, Hx Hypothyroidism. Denies: Hx Hyperthyroidism Renal/ Medical History: Denies: Hx Peritoneal Dialysis GI Medical History: Reports: Hx Hiatal Hernia. Denies: Hx Cirrhosis, Hx Hepatitis, Hx Ulcer Musculoskeletal Medical History: Reports Hx Arthritis - GENERALIZED , Denies Hx Gout Skin Medical History: Denies Hx Eczema, Denies Hx Psoriasis Psychiatric Medical History: Reports: Hx Depression Infectious Medical History: Denies: Hx Hepatitis Past Surgical History: Reports: Hx Appendectomy, Hx Cardiac Surgery - pacemaker, Hx Open Heart Surgery - ABLATION, Hx Orthopedic Surgery - B knee replacements, Hx Tonsillectomy. Denies: Hx Pacemaker - Immunizations Hx Diphtheria, Pertussis, Tetanus Vaccination: Yes Hx Pneumococcal Vaccination: 04/16/12 Review of Systems - Review of Systems Constitutional: No symptoms reported EENT: No symptoms reported Cardiovascular: No symptoms reported Respiratory: No symptoms reported Gastrointestinal: No symptoms reported Genitourinary: No symptoms reported Male Genitourinary: No symptoms reported Musculoskeletal: No symptoms reported Skin: No symptoms reported Hematologic/Lymphatic: No symptoms reported Neurological/Psychological: Weakness, Numbness, Tingling, Other - all left sided symptoms Physical Exam - Vital signs Vitals: Pulse Resp BP Pulse Ox 71 14 164/91 H 94 09/08/19 17:56 09/08/19 17:56 09/08/19 17:56 09/08/19 17:56 - Notes Notes: GENERAL: Well-appearing, well-nourished and in no acute distress. HEAD: Atraumatic, normocephalic. EYES: Pupils equal round and reactive to light, extraocular movements intact, sclera anicteric, conjunctiva are normal. ENT: TMs normal, nares patent, oropharynx clear without exudates. Moist mucous membranes. NECK: Normal range of motion, supple without lymphadenopathy or JVD. LUNGS: Breath sounds clear to auscultation bilaterally and equal. No wheezes rales or rhonchi. HEART: Regular rate and rhythm without murmurs, rubs or gallops. ABDOMEN: Soft, nontender, normoactive bowel sounds. No guarding, no rebound. No masses appreciated. EXTREMITIES: Normal range of motion, no pitting or edema. No clubbing or cyanosis. NEUROLOGICAL: Cranial nerves II through XII grossly intact. Normal speech, normal gait. PSYCH: Normal mood, normal affect. SKIN: Warm, Dry, normal turgor, no rashes or lesions noted. Course - Re-evaluation Re-evalutation: 09/08/19 20:33 The patient could have had a small stroke vs a TIA. He is only on aspirin as far as blood thinners. Plan to admit patient for OBs for an MRI and to discuss possibly going on a stronger anticoagulant. Will allow for permissive hypertension at this time. Patient is not a TPA candidate since his symptoms i mproved and were very minor to begin with (NIH of 2 due to left sided paresthesias). 09/08/19 20:41 - Vital Signs Vital signs: Temp Pulse Resp BP Pulse Ox 98.1 F 71 12 189/95 H 94 09/08/19 20:05 09/08/19 17:56 09/08/19 20:01 09/08/19 20:01 09/08/19 20:06 - Laboratory Result Diagrams: 09/08/19 19:25 09/08/19 19:25 Laboratory results interpreted by me: 09/08/19 09/08/19 09/08/19 19:25 19:25 19:35 RDW 15.2 H Plt Count 132 L Eos % (Auto) 6.3 H Potassium 3.1 L Carbon Dioxide 33 H Glucose 207 H POC Glucose 180 H Creatine Kinase 21 L - EKG Interpretation by [place] EKG shows normal: Sinus rhythm [place]/QRS: Left axis deviation When compared to previous EKG there are: No significant change Additional EKG results interpreted by me: 09/08/19 20:39 widen QRS complex T wave inversions in V1-V4, II, III, avf, avr Discharge - Discharge Clinical Impression: TIA (transient ischemic attack) Condition: Stable Disposition: ADMITTED OBSERVATION Admitting Provider: Kevin (Hospitalist) Unit Admitted: IMCU Referrals: HOWARD CARSON NP [Primary Care Provider] - Follow up as needed
[2019-09-08] MEDS ORDERED: DEXTROSE 40% GEL 15 GM TUBE PO PRN ×2 (20:37)
[2019-09-08] MEDS ORDERED: DEXTROSE 50%-WATER 25 GM/50 ML DISP.SYRIN IV PRN ×2 (20:37)
[2019-09-08] MEDS ORDERED: GLUCAGON,HUMAN RECOMB 1 MG INJ IM PRN (20:37)
[2019-09-08] MEDS ORDERED: POTASSIUM CHLORIDE 10 MEQ TABLET.ER PO ONE (21:00)
[2019-09-08] MEDS ORDERED: ATORVASTATIN CALCIUM 40 MG TABLET PO SCH (22:00)
[2019-09-09] MEDS ORDERED: POTASSIUM CHLORIDE 10 MEQ TABLET.ER PO ONE (00:03)
[2019-09-09] MEDS: CLOPIDOGREL BISULFATE 75 MG TABLET PO SCH ×2 (00:06→09:34)
[2019-09-09] MEDS: HEPARIN SOD (PORCINE) 5,000 UNIT/ML 1 ML VIAL SUBCUT SCH ×4 (00:11→21:35)
[2019-09-09] MEDS ORDERED: INFLUENZA QUAD (6MOS+) 2019-20 VAC 0.5 ML SYR IM ONE (00:15)
[2019-09-09] MEDS: LOSARTAN POTASSIUM 50 MG TABLET PO SCH ×3 (00:31→21:38)
[2019-09-09] MEDS: HYDRALAZINE HCL INJ/PF 20 MG/1 ML SDV IV PRN ×2 (03:31→09:41)
--- NOTE | 2019-09-09 04:48 | PDOC H&P ---
History of Present Illness Admission Date/PCP: 09/08/19 20:47 HOWARD CARSON NP Patient complains of: Left side numb History of Present Illness: VIKTORIA THOMAS is a 79 year old male with a past medical history of atrial fibrillation status post permanent pacemaker without anticoagulation, hypertension, anxiety and depression. He presents with a sudden onset of left- sided numbness lasting less than a second which was preceded by a popping sound with back of the head. He has had several previous episodes which were diagnosed as a stroke however he is not left with any long-term residual deficit, in fact his only claimed affect is intermittent word finding difficulty. CT imaging is unremarkable for acute or old CVA. In the emergency department he is found to have uncontrolled blood pressure of 214/104 and referred to the hospitalist for admission. Patient denies recent change in medication regiment and is otherwise felt well but has hypervigilant and anxious affect. Past Medical History Cardiac Medical History: Reports: Atrial Fibrillation, Coronary Artery Disease, Hyperlipidema, Hypertension Denies: Myocardial Infarction Pulmonary Medical History: Denies: Asthma, Bronchitis, Chronic Obstructive Pulmonary Disease (COPD), Pneumonia, Tuberculosis Neurological Medical History: Denies: Seizures Endocrine Medical History: Reports: Diabetes Mellitus Type 1, Diabetes Mellitus Type 2, Hypothyroidism Denies: Hyperthyroidism GI Medical History: Reports: Hiatal Hernia Denies: Cirrhosis, Hepatitis Musculoskeltal Medical History: Reports: Arthritis - GENERALIZED Denies: Gout Skin Medical History: Denies: Eczema, Psoriasis Psychiatric Medical History: Reports: Depression Hematology: Denies: Anemia, Sickle Cell Disease, Bleeding Tendencies Past Surgical History Past Surgical History: Reports: Appendectomy, Orthopedic Surgery - B knee replacements, Tonsillectomy Denies: Pacemaker Social History Information Source: Patient, [facility] Records Lives with: Spouse/Significant other Smoking Status: Former Smoker Frequency of Alcohol Use: Occasional Hx Recreational Drug Use: No Drugs: None Hx Prescription Drug Abuse: No - Advance Directive Resuscitation Status: Full Code Family History Family History: CAD. denies: DM, Hypertension, Malignancy Parental Family History Reviewed: Yes Children Family History Reviewed: Yes Sibling(s) Family History Reviewed.: Yes Medication/Allergy Allergies/Adverse Reactions: amlodipine Allergy (Verified 08/27/18 16:17) lisinopril Allergy (Verified 08/27/18 16:17) Review of Systems Constitutional: ABSENT: chills, fever(s), headache(s), weight gain, weight loss Eyes: ABSENT: visual disturbances Ears: ABSENT: hearing changes Cardiovascular: ABSENT: chest pain, dyspnea on exertion, edema, orthropnea, palpitations Respiratory: ABSENT: cough, hemoptysis Gastrointestinal: ABSENT: abdominal pain, constipation, diarrhea, hematemesis, hematochezia, nausea, vomiting Genitourinary: ABSENT: dysuria, hematuria Musculoskeletal: ABSENT: joint swelling Integumentary: ABSENT: rash, wounds Neurological: ABSENT: abnormal gait, abnormal speech, confusion, dizziness, focal weakness, syncope Psychiatric: ABSENT: anxiety, depression, homidical ideation, suicidal ideation Endocrine: ABSENT: cold intolerance, heat intolerance, polydipsia, polyuria Hematologic/Lymphatic: ABSENT: easy bleeding, easy bruising Physical Exam Vital Signs: Temp Pulse Resp BP Pulse Ox 97.9 F 59 L 16 192/92 H 95 09/09/19 04:12 09/09/19 04:12 09/09/19 04:12 09/09/19 04:12 09/09/19 04:12 Intake & Output 09/07/19 09/08/19 09/09/19 11:59 11:59 11:59 Intake Total 0 Output Total 0 Balance 0 Weight 116.2 kg General appearance: PRESENT: no acute distress, well-developed, well-nourished Head exam: PRESENT: atraumatic, normocephalic Eye exam: PRESENT: conjunctiva pink, EOMI, PERRLA. ABSENT: scleral icterus Ear exam: PRESENT: normal external ear exam Mouth exam: PRESENT: moist, tongue midline Neck exam: ABSENT: carotid bruit, JVD, lymphadenopathy, thyromegaly Respiratory exam: PRESENT: clear to auscultation isaias. ABSENT: rales, rhonchi, wheezes Cardiovascular exam: PRESENT: RRR. ABSENT: diastolic murmur, rubs, systolic murmur Pulses: PRESENT: normal dorsalis pedis pul Vascular exam: PRESENT: normal capillary refill GI/Abdominal exam: PRESENT: normal bowel sounds, soft. ABSENT: distended, guarding, mass, organolmegaly, rebound, tenderness Rectal exam: PRESENT: deferred Extremities exam: PRESENT: full ROM. ABSENT: calf tenderness, clubbing, pedal edema Neurological exam: PRESENT: alert, awake, oriented to person, oriented to place, oriented to time, oriented to situation, CN II-XII grossly intact. ABSENT: motor sensory deficit Psychiatric exam: PRESENT: appropriate affect, normal mood. ABSENT: homicidal ideation, suicidal ideation Skin exam: PRESENT: dry, intact, warm. ABSENT: cyanosis, rash Results Laboratory Results: 09/08/19 19:25 09/08/19 19:25 09/08/19 09/08/19 09/08/19 19:25 19:25 19:25 WBC 6.0 RBC 5.38 Hgb 15.2 Hct 44.9 MCV 83 MCH 28.2 MCHC 33.9 RDW 15.2 H Plt Count 132 L Seg Neutrophils % 58.8 Sodium 141.3 Potassium 3.1 L Chloride 98 Carbon Dioxide 33 H Anion Gap 10 BUN 18 Creatinine 0.92 Est GFR ( Amer) > 60 Glucose 207 H Calcium 9.8 Magnesium 1.8 Total Bilirubin 0.4 AST 20 Alkaline Phosphatase 69 Total Protein 7.4 Albumin 4.1 TSH 09/08/19 19:25 WBC RBC Hgb Hct MCV MCH MCHC RDW Plt Count Seg Neutrophils % Sodium Potassium Chloride Carbon Dioxide Anion Gap BUN Creatinine Est GFR ( Amer) Glucose Calcium Magnesium Total Bilirubin AST Alkaline Phosphatase Total Protein Albumin TSH 1.49 09/08/19 09/08/19 19:25 19:25 Creatine Kinase 21 L CK-MB (CK-2) 0.82 Troponin I < 0.012 Impressions: Chest X-Ray 09/08/19 17:56 IMPRESSION: NO ACUTE RADIOGRAPHIC FINDING IN THE CHEST. Head CT 09/08/19 17:56 IMPRESSION: CHRONIC MICROVASCULAR ISCHEMIA. NO ACUTE IMAGING FINDINGS IN THE BRAIN. EVIDENCE OF ACUTE STROKE: NO. Assessment and Plan - Diagnosis (1) TIA (transient ischemic attack) Is this a current diagnosis for this admission?: Yes Plan: Likely muscle skeletal or peripheral nerve explanation for symptoms. No deficits, anxious affect, previous evaluation of CTA head and neck, echocardiogram unremarkable 12 months ago. Evaluate for uncontrolled risk factors of vascular disease. 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 (3) History of diabetes mellitus, type II Is this a current diagnosis for this admission?: Yes Plan: Hold metformin, Humalog sliding scale, follow-up A1c (4) Hypertension Qualifiers: Hypertension type: essential hypertension Qualified Code(s): I10 - Essential (primary) hypertension Is this a current diagnosis for this admission?: Yes Plan: Trial hydralazine, hold propafenone for heart rate of 59. (5) Depression Is this a current diagnosis for this admission?: Yes Plan: Depression, likely anxiety, follow-up TSH, benzodiazepine as needed - Time Time Spent with patient: 25-34 minutes - Inpatient Certification Medical Necessity: Need Close Monitoring Due to Risk of Patient Decompensation
[2019-09-09] MEDS ORDERED: LORAZEPAM INJ 2 MG/1 ML VIAL IV ONE (05:00)
[2019-09-09 05:29] LABS: ANION GAP 11 (5-19); BLOOD UREA NITROGEN 17 mg/dL (7-20); CALCIUM 9.9 mg/dL (8.4-10.2); CARBON DIOXIDE 30 mmol/L (22-30); CHLORIDE 101 mmol/L (98-107); CHOLESTEROL 139.96 mg/dL (0-200); GLUCOSE 109 mg/dL (75-110); POTASSIUM 3.4 mmol/L (3.6-5.0); TRIGLYCERIDES 213 mg/dL (<150)
[2019-09-09 05:41] LABS: DIRECT LDL 77 mg/dL (<100)
[2019-09-09 05:45] LABS: VLDL CHOLESTEROL 42.6 mg/dL (10-31)
--- NOTE | 2019-09-09 09:20 | EKG REPORT ---
SEVERITY:- ABNORMAL ECG - SINUS RHYTHM NONSPECIFIC IVCD WITH LAD : Confirmed by: Mi Stone 09-Sep-2019 09:19:07
[2019-09-09] MEDS: INSULIN LISPRO 100 UNIT/ML 3 ML VIAL SUBCUT SCH ×3 (09:33→17:14)
[2019-09-09] MEDS: ASPIRIN 325 MG TABLET, ENT COATED PO SCH (09:35)
[2019-09-09] MEDS ORDERED: ACETAMINOPHEN 325 MG TABLET PO PRN (13:32)
[2019-09-09] MEDS: METFORMIN HCL 500 MG TABLET PO SCH ×2 (13:32→13:55)
[2019-09-09] MEDS ORDERED: TRAMADOL HCL 50 MG TABLET PO PRN (13:33)
[2019-09-09] MEDS: GABAPENTIN 300 MG CAPSULE PO SCH ×2 (13:53→21:39)
[2019-09-09] MEDS ORDERED: PROPAFENONE HCL 225 MG PO SCH ×2 (14:00)
--- NOTE | 2019-09-09 14:36 | PDOC PROGRESS REPORT ---
Subjective Progress Note for:: 09/09/19 Subjective:: VIKTORIA THOMAS is a 79 year old male with a past medical history of atrial fibrillation status post permanent pacemaker without anticoagulation, hypertension, anxiety and depression who was admitted 09/08/2023 TIA and hypertensive urgency. Patient was seen on morning rounds with his present. He was found ambulating in his room, comfortably, on room air. He reports a global headache but otherwise states all symptoms have resolved. When asked about weakness or difficulty with coordination, patient demonstrated that he had full mobility and strength by dancing. He denies fever, chills, dizziness, blurred vision, chest pain, palpitations, dyspnea, orthopnea, cough, abdominal pain, nausea vomiting diarrhea. They have no other questions or concerns at this time. No concerns per nursing. Reason For Visit: TIA HTN CAD AFIB Physical Exam Vital Signs: Temp Pulse Resp BP Pulse Ox 97.2 F 80 17 160/90 H 90 L 09/09/19 14:06 09/09/19 14:06 09/09/19 14:06 09/09/19 14:06 09/09/19 14:06 Intake & Output 09/08/19 09/09/19 09/10/19 06:59 06:59 06:59 Intake Total 0 480 Output Total 0 Balance 0 480 Weight 115.2 kg General appearance: PRESENT: no acute distress, cooperative, well-developed, we ll-nourished Head exam: PRESENT: atraumatic, normocephalic Eye exam: PRESENT: conjunctiva pink, EOMI, PERRLA. ABSENT: scleral icterus Ear exam: PRESENT: normal external ear exam Mouth exam: PRESENT: moist, tongue midline Respiratory exam: PRESENT: clear to auscultation isaias, symmetrical, unlabored. ABSENT: rales, rhonchi, wheezes Cardiovascular exam: PRESENT: RRR. ABSENT: diastolic murmur, rubs, systolic murmur Pulses: PRESENT: normal dorsalis pedis pul Vascular exam: PRESENT: normal capillary refill GI/Abdominal exam: PRESENT: normal bowel sounds, soft. ABSENT: distended, guarding, mass, organolmegaly, rebound, tenderness Rectal exam: PRESENT: deferred Extremities exam: PRESENT: full ROM. ABSENT: calf tenderness, clubbing, pedal edema Musculoskeletal exam: PRESENT: ambulatory Neurological exam: PRESENT: alert, awake, oriented to person, oriented to place, oriented to time, oriented to situation, CN II-XII grossly intact. ABSENT: motor sensory deficit Psychiatric exam: PRESENT: anxious, appropriate affect, normal mood. ABSENT: h omicidal ideation, suicidal ideation Skin exam: PRESENT: dry, intact, warm. ABSENT: cyanosis, rash Results Laboratory Results: 09/08/19 19:25 09/09/19 04:10 09/08/19 09/08/19 09/08/19 19:25 19:25 19:25 WBC 6.0 RBC 5.38 Hgb 15.2 Hct 44.9 MCV 83 MCH 28.2 MCHC 33.9 RDW 15.2 H Plt Count 132 L Seg Neutrophils % 58.8 Sodium 141.3 Potassium 3.1 L Chloride 98 Carbon Dioxide 33 H Anion Gap 10 BUN 18 Creatinine 0.92 Est GFR ( Amer) > 60 Glucose 207 H Calcium 9.8 Magnesium 1.8 Total Bilirubin 0.4 AST 20 Alkaline Phosphatase 69 Total Protein 7.4 Albumin 4.1 Triglycerides Cholesterol LDL Cholesterol Direct VLDL Cholesterol HDL Cholesterol TSH 09/08/19 09/09/19 19:25 04:10 WBC RBC Hgb Hct MCV MCH MCHC RDW Plt Count Seg Neutrophils % Sodium 142.1 Potassium 3.4 L Chloride 101 Carbon Dioxide 30 Anion Gap 11 BUN 17 Creatinine 0.84 Est GFR ( Amer) > 60 Glucose 109 Calcium 9.9 Magnesium Total Bilirubin AST Alkaline Phosphatase Total Protein Albumin Triglycerides 213 H Cholesterol 139.96 LDL Cholesterol Direct 77 VLDL Cholesterol 42.6 H HDL Cholesterol 24 L TSH 1.49 09/08/19 09/08/19 19:25 19:25 Creatine Kinase 21 L CK-MB (CK-2) 0.82 Troponin I < 0.012 Impressions: Chest X-Ray 09/08/19 17:56 IMPRESSION: NO ACUTE RADIOGRAPHIC FINDING IN THE CHEST. Head CT 09/08/19 17:56 IMPRESSION: CHRONIC MICROVASCULAR ISCHEMIA. NO ACUTE IMAGING FINDINGS IN THE BRAIN. EVIDENCE OF ACUTE STROKE: NO. Assessment and Plan - Diagnosis (1) Hypertensive urgency Is this a current diagnosis for this admission?: Yes Plan: Patient is noted to have blood pressures 214/104 Improved to 160/90 We will continue home dose hydrochlorothiazide and Rythmol. Increase losartan to 50 mg twice daily. Start p.o. hydralazine 10 mg every 8 hours. IV hydralazine as needed for blood pressure control. Cardiac diet. (2) TIA (transient ischemic attack) Is this a current diagnosis for this admission?: Yes Plan: Likely muscle skeletal or peripheral nerve explanation for symptoms. No deficits, anxious affect, previous evaluation of CTA head and neck, echocardiogram unremarkable 12 months ago. A1C 7.5% LDL 77, HDL 24. Triglycerides 213, TChol 139 Physical therapy has evaluated patient and signed off. Continue daily aspirin and statin therapy. Continue daily Plavix x3 weeks. Gain appropriate blood pressure and glucose control. (3) Depression Is this a current diagnosis for this admission?: Yes Plan: TSH is normal. 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 Currently paced rhythm. Continue daily aspirin. Continue home dose propafenone (5) History of diabetes mellitus, type II Is this a current diagnosis for this admission?: Yes Plan: A1c 7.5% Hold metformin Consistent carb/cardiac diet Accu-Cheks before meals and at bedtime with Humalog sliding scale Hypoglycemia protocol - Time Time Spent with patient: 25-34 minutes Medications reviewed and adjusted accordingly: Yes Anticipated discharge: Home Within: within 24 hours
[2019-09-09] MEDS: PROPAFENONE HCL 150 MG TABLET PO SCH ×2 (16:00→21:39)
[2019-09-09] MEDS: HYDRALAZINE HCL 10 MG TABLET PO SCH (21:37)
[2019-09-09] MEDS ORDERED: ATORVASTATIN CALCIUM 40 MG TABLET PO SCH (22:00)
[2019-09-10] MEDS: GABAPENTIN 300 MG CAPSULE PO SCH (05:23)
[2019-09-10] MEDS: HYDRALAZINE HCL 10 MG TABLET PO SCH (05:23)
[2019-09-10] MEDS: PROPAFENONE HCL 150 MG TABLET PO SCH (05:24)
[2019-09-10] MEDS: HEPARIN SOD (PORCINE) 5,000 UNIT/ML 1 ML VIAL SUBCUT SCH (05:25)
[2019-09-10] MEDS ORDERED: LEVOTHYROXINE SODIUM 0.1 MG TABLET PO SCH (06:00)
[2019-09-10] MEDS ORDERED: HYDROCHLOROTHIAZIDE 25 MG TABLET PO SCH (08:00)
[2019-09-10] MEDS: INSULIN LISPRO 100 UNIT/ML 3 ML VIAL SUBCUT SCH ×2 (08:30→12:17)
[2019-09-10] MEDS ORDERED: HYDRALAZINE HCL 10 MG TABLET PO ONE (09:00)
[2019-09-10] MEDS: ASPIRIN 325 MG TABLET, ENT COATED PO SCH (09:30)
[2019-09-10] MEDS: LOSARTAN POTASSIUM 50 MG TABLET PO SCH (09:30)
[2019-09-10] MEDS: CLOPIDOGREL BISULFATE 75 MG TABLET PO SCH (09:30)
[2019-09-10] MEDS ORDERED: TAMSULOSIN HCL 0.4 MG CAP.SR.24H PO SCH (10:00)
[2019-09-10] MEDS ORDERED: PAROXETINE HCL 20 MG TABLET PO SCH (10:00)
[2019-09-10] MEDS ORDERED: MECLIZINE HCL 12.5 MG TABLET PO ONE (11:30)
--- NOTE | 2019-09-10 13:06 | EKG REPORT ---
SEVERITY:- ABNORMAL ECG - ATRIAL-PACED COMPLEXES VENTRICULAR PREMATURE COMPLEX RIGHT BUNDLE BRANCH BLOCK PROBABLE ANTEROSEPTAL INFARCT, AGE INDETERM : Confirmed by: Mi Stone 10-Sep-2019 13:05:55
[2019-09-10] MEDS ORDERED: HYDRALAZINE HCL 10 MG TABLET PO SCH (14:00)
--- NOTE | 2019-09-10 14:39 | PDOC DISCHARGE SUMMARY ---
Impression - Admit/DC Date/PCP Admission Date/Primary Care Provider: 09/08/19 20:47 HOWARD CARSON NP Discharge Date: 09/10/19 - Discharge Diagnosis (1) Hypertensive urgency Is this a current diagnosis for this admission?: Yes (2) TIA (transient ischemic attack) Is this a current diagnosis for this admission?: Yes (3) Depression Is this a current diagnosis for this admission?: Yes (4) Atrial fibrillation Is this a current diagnosis for this admission?: Yes (5) History of diabetes mellitus, type II Is this a current diagnosis for this admission?: Yes - Additional Information Resuscitation Status: Full Code Discharge Diet: Cardiac, Diabetic Discharge Activity: Activity As Tolerated, Balance Activity w/Rest Referrals: HOWARD CARSON NP [Primary Care Provider] - 09/20/19 2:30 pm Prescriptions: Meclizine HCl [Antivert 12.5 mg Tablet] 12.5 mg PO BIDP PRN #14 tab PRN Reason: Dizziness Hydralazine HCl [Apresoline 25 mg Tablet] 25 mg PO Q8 #90 tablet Aspirin [Aspirin 81 mg Chewable Tablet] 81 mg PO DAILY #1 pkg Losartan Potassium [Cozaar 50 mg Tablet] 50 mg PO Q12 #60 tablet Home Medications: Atorvastatin Calcium [Lipitor 40 mg Tablet] 40 mg PO QHS 09/09/19 Gabapentin [Neurontin 300 mg Capsule] 600 mg PO Q8 09/09/19 Hydrochlorothiazide [Hydrodiuril 25 mg Tablet] 25 mg PO QAM 09/09/19 Levothyroxine Sodium [Synthroid 0.1 mg Tablet] 0.1 mg PO Q6AM 09/09/19 Metformin HCl [Glucophage 500 mg Tablet] 1,000 mg PO MEALS 09/09/19 Paroxetine HCl [Paxil 20 mg Tablet] 20 mg PO DAILY 09/09/19 Propafenone HCl [Rythmol Sr] 225 mg PO Q8 09/09/19 Tamsulosin HCl [Flomax 0.4 mg Cap.sr] 0.4 mg PO DAILY 09/09/19 Acetaminophen [Tylenol 325 mg Tablet] 650 mg PO Q4HP PRN tablet 09/10/19 Aspirin [Aspirin 81 mg Chewable Tablet] 81 mg PO DAILY #1 pkg 09/10/19 Hydralazine HCl [Apresoline 25 mg Tablet] 25 mg PO Q8 #90 tablet 09/10/19 Losartan Potassium [Cozaar 50 mg Tablet] 50 mg PO Q12 #60 tablet 09/10/19 Meclizine HCl [Antivert 12.5 mg Tablet] 12.5 mg PO BIDP PRN #14 tab 09/10/19 History of Present Illiness History of Present Illness: Per H&P by Dr. Brown: VIKTORIA THOMAS is a 79 year old male with a past medical history of atrial fibrillation status post permanent pacemaker without anticoagulation, hypertension, anxiety and depression. He presents with a sudden onset of left-sided numbness lasting less than a second which was preceded by a popping sound with back of the head. He has had several previous episodes which were diagnosed as a stroke however he is not left with any long- term residual deficit, in fact his only claimed affect is intermittent word finding difficulty. CT imaging is unremarkable for acute or old CVA. In the emergency department he is found to have uncontrolled blood pressure of 214/104 and referred to the hospitalist for admission. Patient denies recent change in medication regiment and is otherwise felt well but has hypervigilant and anxious affect. Hospital Course Hospital Course: Patient was admitted to [facility] on continuous cardiac telemetry; he remained in a paced rhythm throughout his stay. His pacemaker was interrogated and was found to have any recent events. He did have a short run of SVT in mid May of this year. Appropriate blood pressure control was obtained through dose losartan and hydrochlorothiazide. His home dose of Rythmol was continued. He was started on p.o. hydralazine 25 mg every 8 hours. The patient's TIA symptoms were likely a result of multi-skeletal or peripheral nerve neuropathy as they were brief, did not recur, and noted following his neck popping. They had no additional focal deficits. CT was negative. Open A1c 7.5 and lipid panel were acceptable. He was placed on daily aspirin and statin therapy. Was provided a prescription for 3 weeks of Plavix for stroke prevention. The patient was noted to have a somewhat anxious disposition which may have exacerbated his symptoms. Otherwise, his chronic medical conditions remained stable. He is now stable for discharge to home with PCP follow-up. Physical Exam Vital Signs: Temp Pulse Resp BP Pulse Ox 97.6 F 64 16 144/74 H 93 09/10/19 11:30 09/10/19 12:00 09/10/19 12:00 09/10/19 12:00 09/10/19 12:00 Intake & Output 09/09/19 09/10/19 09/11/19 06:59 06:59 06:59 Intake Total 0 840 465 Output Total 0 100 Balance 0 740 465 Weight 115.2 kg 116.3 kg General appearance: PRESENT: no acute distress, well-developed, well-nourished Head exam: PRESENT: atraumatic, normocephalic Eye exam: PRESENT: conjunctiva pink, EOMI, PERRLA. ABSENT: scleral icterus Ear exam: PRESENT: normal external ear exam Mouth exam: PRESENT: moist, tongue midline Neck exam: ABSENT: carotid bruit, JVD, lymphadenopathy, thyromegaly Respiratory exam: PRESENT: clear to auscultation isaias. ABSENT: rales, rhonchi, wheezes Cardiovascular exam: PRESENT: RRR. ABSENT: diastolic murmur, rubs, systolic murmur Pulses: PRESENT: normal dorsalis pedis pul Vascular exam: PRESENT: normal capillary refill GI/Abdominal exam: PRESENT: normal bowel sounds, soft. ABSENT: distended, guarding, mass, organolmegaly, rebound, tenderness Rectal exam: PRESENT: deferred Extremities exam: PRESENT: full ROM. ABSENT: calf tenderness, clubbing, pedal edema Musculoskeletal exam: PRESENT: ambulatory Neurological exam: PRESENT: alert, awake, oriented to person, oriented to place, oriented to time, oriented to situation, CN II-XII grossly intact. ABSENT: motor sensory deficit Psychiatric exam: PRESENT: anxious, appropriate affect. ABSENT: homicidal ideation, suicidal ideation Skin exam: PRESENT: dry, intact, warm. ABSENT: cyanosis, rash Results Laboratory Results: WBC 6.0 10^3/uL (4.0-10.5) 09/08/19 19:25 RBC 5.38 10^6/uL (4.35-5.55) 09/08/19 19:25 Hgb 15.2 g/dL (13.5-17.0) 09/08/19 19:25 Hct 44.9 % (37.9-51.0) 09/08/19 19:25 MCV 83 fl (80-97) 09/08/19 19:25 MCH 28.2 pg (27.0-33.4) 09/08/19 19:25 MCHC 33.9 g/dL (32.0-36.0) 09/08/19 19:25 RDW 15.2 % (11.5-14.0) H 09/08/19 19:25 Plt Count 132 10^3/uL (150-450) L 09/08/19 19:25 Lymph % (Auto) 24.5 % (13-45) 09/08/19 19:25 Morris % (Auto) 9.9 % (3-13) 09/08/19 19:25 Eos % (Auto) 6.3 % (0-6) H 09/08/19 19:25 Baso % (Auto) 0.5 % (0-2) 09/08/19 19:25 Absolute Neuts (auto) 3.6 10^3/uL (1.7-8.2) 09/08/19 19:25 Absolute Lymphs (auto) 1.5 10^3/uL (0.5-4.7) 09/08/19 19:25 Absolute Monos (auto) 0.6 10^3/uL (0.1-1.4) 09/08/19 19:25 Absolute Eos (auto) 0.4 10^3/uL (0.0-0.6) 09/08/19 19:25 Absolute Basos (auto) 0.0 10^3/uL (0.0-0.2) 09/08/19 19:25 Seg Neutrophils % 58.8 % (42-78) 09/08/19 19:25 PT 14.0 SEC (11.4-15.4) 09/08/19 19:25 INR 1.08 09/08/19 19:25 APTT 29.7 SEC (23.5-35.8) 09/08/19 19:25 Sodium 142.1 mmol/L (137-145) 09/09/19 04:10 Potassium 3.4 mmol/L (3.6-5.0) L 09/09/19 04:10 Chloride 101 mmol/L (98-107) 09/09/19 04:10 Carbon Dioxide 30 mmol/L (22-30) 09/09/19 04:10 Anion Gap 11 (5-19) 09/09/19 04:10 BUN 17 mg/dL (7-20) 09/09/19 04:10 Creatinine 0.84 mg/dL (0.52-1.25) 09/09/19 04:10 Est GFR ( Amer) > 60 (>60) 09/09/19 04:10 Est GFR (MDRD) Non-Af > 60 (>60) 09/09/19 04:10 Glucose 109 mg/dL (75-110) 09/09/19 04:10 POC Glucose 124 mg/dL (70-110) H 09/10/19 11:28 Hemoglobin A1c % 7.5 % (4.7-6.0) H 09/08/19 19:25 Calcium 9.9 mg/dL (8.4-10.2) 09/09/19 04:10 Magnesium 1.8 mg/dL (1.6-2.3) 09/08/19 19:25 Total Bilirubin 0.4 mg/dL (0.2-1.3) 09/08/19 19:25 Direct Bilirubin 0.3 mg/dL (0.0-0.4) 09/08/19 19:25 Neonat Total Bilirubin Not Reportable 09/08/19 19:25 Neonat Direct Bilirubin Not Reportable 09/08/19 19:25 Neonat Indirect Bili Not Reportable 09/08/19 19:25 AST 20 U/L (17-59) 09/08/19 19:25 ALT 15 U/L (<50) 09/08/19 19:25 Alkaline Phosphatase 69 U/L (38-126) 09/08/19 19:25 Creatine Kinase 21 U/L (55-170) L 09/08/19 19:25 CK-MB (CK-2) 0.82 ng/mL (<4.55) 09/08/19 19:25 Troponin I < 0.012 ng/mL 09/08/19 19:25 Total Protein 7.4 g/dL (6.3-8.2) 09/08/19 19:25 Albumin 4.1 g/dL (3.5-5.0) 09/08/19 19:25 Triglycerides 213 mg/dL (<150) H 09/09/19 04:10 Cholesterol 139.96 mg/dL (0-200) 09/09/19 04:10 LDL Cholesterol Direct 77 mg/dL (<100) 09/09/19 04:10 VLDL Cholesterol 42.6 mg/dL (10-31) H 09/09/19 04:10 HDL Cholesterol 24 mg/dL (>40) L 09/09/19 04:10 TSH 1.49 uIU/mL (0.47-4.68) 09/08/19 19:25 09/08/19 19:25 CK-MB (CK-2) 0.82 Troponin I < 0.012 Impressions: Chest X-Ray 09/08/19 17:56 IMPRESSION: NO ACUTE RADIOGRAPHIC FINDING IN THE CHEST. Head CT 09/08/19 17:56 IMPRESSION: CHRONIC MICROVASCULAR ISCHEMIA. NO ACUTE IMAGING FINDINGS IN THE BRAIN. EVIDENCE OF ACUTE STROKE: NO. Plan Plan of Treatment: Patient is discharged home in stable condition. He is advised to follow-up with his primary care provider within 1 week. He should follow-up with his established instrumentation chemist as scheduled. He is instructed to take his medications as prescribed. Drink plenty of water and change positions slowly to prevent dizziness. Return to the emergency department as needed for concerning symptoms. Time Spent: Greater than 30 Minutes Stroke Is this a Stroke Patient?: No Acute Heart Failure - Is this a Heart Failure Patient?: No
[2019-09-10 14:43] VITALS: BP 150/80
== END 2019-09-10 15:44 | disposition home or self-care (01) ==
LOC: ER 17:53 → EH 20:47 → 3N 22:19
PROVIDERS: ADMIT Internal Medicine; ATTEND Internal Medicine
DX: I16.0 Hypertensive urgency (principal); G45.9 Transient cerebral ischemic attack, unspecified; F32.9 Major depressive disorder, single episode, unspecified; I48.91 Unspecified atrial fibrillation; E11.9 Type 2 diabetes mellitus without complications; I25.10 Atherosclerotic heart disease of native coronary artery without angina pectoris; R51 Headache; R20.2 Paresthesia of skin; R29.702 NIHSS score 2; E78.5 Hyperlipidemia, unspecified; E03.9 Hypothyroidism, unspecified; Z87.891 Personal history of nicotine dependence; Z79.899 Other long term (current) drug therapy; Z79.84 Long term (current) use of oral hypoglycemic drugs; Z45.018 Encounter for adjustment and management of other part of cardiac pacemaker; Z86.73 Personal history of transient ischemic attack (TIA), and cerebral infarction without residual deficits; Z96.653 Presence of artificial knee joint, bilateral; Z82.49 Family history of ischemic heart disease and other diseases of the circulatory system; Z79.82 Long term (current) use of aspirin
CPT/HCPCS: 93005 ×2; 99285; 36415 ×2; 82553; 82962 ×3; 82550; 83735; 84443; 85025; 85610; 85730; 80048; 80053; 84484; 83036; 80061; 71045; 70450; 93010 ×2; 97116; 97161; 93296; G0378 ×4; A9270 ×22; J0360; J2060; J3490; J1815

== ENCOUNTER 2020-07-28 23:38 | Inpatient (IN) | payer MEDICARE, OTHER ==
[2020-07-29 00:26] LABS: ABSOLUTE BASOPHILS # (AUTO) 0.1 10^3/uL (0.0-0.2); ABSOLUTE EOSINOPHILS # (AUTO) 0.4 10^3/uL (0.0-0.6); ABSOLUTE LYMPHOCYTES (AUTO) 1.9 10^3/uL (0.5-4.7); ABSOLUTE MONOCYTES (AUTO) 0.7 10^3/uL (0.1-1.4); ABSOLUTE NEUT (AUTO) 3.9 10^3/uL (1.7-8.2); ALBUMIN 4.3 g/dL (3.5-5.0); ALKALINE PHOSPHATASE 72 U/L (38-126); ANION GAP 6 (5-19); ASPARTATE AMINO TRANSFERASE 20 U/L (17-59); BASOPHILS % (AUTO) 0.9 % (0-2); BILIRUBIN,DIRECT 0.2 mg/dL (0.0-0.4); BILIRUBIN,TOTAL 0.5 mg/dL (0.2-1.3); BLOOD UREA NITROGEN 21 mg/dL (7-20); CALCIUM 10.1 mg/dL (8.4-10.2); CARBON DIOXIDE 35 mmol/L (22-30); CHLORIDE 99 mmol/L (98-107); EOSINOPHILS % (AUTO) 6.4 % (0-6); GLUCOSE 116 mg/dL (75-110); HEMATOCRIT 43.1 % (37.9-51.0); HEMOGLOBIN 14.5 g/dL (13.5-17.0); LYMPHOCYTES % (AUTO) 26.8 % (13-45); MEAN CORPUSCULAR HEMOGLOBIN 27.7 pg (27.0-33.4); MEAN CORPUSCULAR HGB CONC 33.6 g/dL (32.0-36.0); MEAN CORPUSCULAR VOLUME 82 fl (80-97); MONOCYTES % (AUTO) 10.5 % (3-13); PLATELET COUNT 119 10^3/uL (150-450); POTASSIUM 3.4 mmol/L (3.6-5.0); RED BLOOD COUNT 5.23 10^6/uL (4.35-5.55); SEGMENTED NEUTROPHILS % (AUTO) 55.4 % (42-78); TOTAL CELLS COUNTED % (AUTO) 100 %; TOTAL PROTEIN 7.8 g/dL (6.3-8.2)
[2020-07-29 00:30] LABS: CREATINE KINASE MB 1.27 ng/mL (<4.55); TROPONIN I 0.013 ng/mL
[2020-07-29] MEDS ORDERED: ACETAMINOPHEN 325 MG TABLET PO ONE (00:32)
[2020-07-29] MEDS ORDERED: LABETALOL HCL INJ 20 MG/4 ML DISP.SYRIN IV ONE (00:32)
[2020-07-29 00:37] LABS: INTERNATIONAL RATION (INR) 1.04; PARTIAL THROMBOPLASTIN TIME 30.6 SEC (23.5-35.8); PROTHROMBIN TIME 13.8 SEC (11.4-15.4)
--- NOTE | 2020-07-29 01:32 | ER Document Report ---
ED General - General Chief Complaint: Altered Mental Status Stated Complaint: AMS/HEADACHE Time Seen by Provider: 07/28/20 23:57 Mode of Arrival: Medic Information source: Patient Notes: This 80-year-old man presents to the emergency department via EMS with altered mental status. Patient was last known to be completely well at 1830 on 07/28/2020. EMS states that states that he went to sleep but woke up to go to the bathroom around 2200 this evening. The patient apparently was speaking erratically and was completely naked. He has had a history of TIAs in the past admitted to the hospital on 2 prior occasions. He was brought in as a stroke alert and taken to the CT scanner. Brief exam at that time revealed no focal neurologic findings and the patient was able to follow commands. He also denies visual loss and has a history of hearing loss. He complains of headache frontal and left-sided primarily. Denies a history of migraines or headaches in the past. TRAVEL OUTSIDE OF THE [place] IN LAST 30 DAYS: No - Related Data Allergies/Adverse Reactions: amlodipine Allergy (Verified 08/27/18 16:17) lisinopril Allergy (Verified 08/27/18 16:17) Past Medical History - Social History Smoking Status: Never Smoker Family History: CAD. denies: DM, Hypertension, Malignancy - Past Medical History Cardiac Medical History: Reports: Hx Atrial Fibrillation, Hx Coronary Artery Disease, Hx Hypercholesterolemia, Hx Hypertension Denies: Hx Heart Attack Pulmonary Medical History: Denies: Hx Asthma, Hx Bronchitis, Hx COPD, Hx Pneumonia, Hx Tuberculosis Neurological Medical History: Reports: Hx Cerebrovascular Accident - WEAKNESS LEFT SIDE. Denies: Hx Seizures Endocrine Medical History: Reports: Hx Diabetes Mellitus Type 1, Hx Diabetes Mellitus Type 2, Hx Hypothyroidism. Denies: Hx Hyperthyroidism Renal/ Medical History: Denies: Hx Peritoneal Dialysis GI Medical History: Reports: Hx Hiatal Hernia. Denies: Hx Cirrhosis, Hx Hepatitis, Hx Ulcer Musculoskeletal Medical History: Reports Hx Arthritis - GENERALIZED , Denies Hx Gout Skin Medical History: Denies Hx Eczema, Denies Hx Psoriasis Psychiatric Medical History: Reports: Hx Depression Infectious Medical History: Denies: Hx Hepatitis Past Surgical History: Reports: Hx Appendectomy, Hx Cardiac Surgery - pacemaker, Hx Open Heart Surgery - ABLATION, Hx Orthopedic Surgery - B knee replacements, Hx Tonsillectomy. Denies: Hx Pacemaker - Immunizations Hx Diphtheria, Pertussis, Tetanus Vaccination: Yes Hx Pneumococcal Vaccination: 04/16/12 Review of Systems - Review of Systems Notes: Constitutional: Negative for fever. HENT: Negative for sore throat. Eyes: Negative for visual changes. Cardiovascular: Negative for chest pain. Respiratory: Negative for shortness of breath. Gastrointestinal: Negative for abdominal pain, vomiting or diarrhea. Genitourinary: Negative for dysuria. Musculoskeletal: Negative for back pain. Skin: Negative for rash. Neurological: See HPI 10 point ROS negative except as marked above and in HPI. Physical Exam - Vital signs Vitals: Resp 13 07/28/20 23:56 - Notes Notes: PHYSICAL EXAMINATION: Physical Exam: General: Well-nourished well-developed 80-year-old man in moderate distress secondary to headache. HEENT: NC/AT, pupils equal round and reactive to light, MM moist,nares clear, oropharynx clear, airway patent Neck: supple, no adenopathy, no masses. Good range of motion Lungs: clear, no wheezing, no rales no rhonchi CVS: Regular rate and rhythm no murmur gallop or rub Abdomen: Soft, active, nontender, no masses, no hepatosplenomegaly Ext: No edema, clubbing or cyanosis. Neuro: Alert and responsive, difficulty expressing himself, difficulty with word finding, moving all 4 extremities on command, cranial nerves intact, no focal findings no sensory abnormality Skin: Intact no open lesions, no rash Course - Re-evaluation Re-evalutation: 07/29/20 01:32 Patient was found to have a markedly elevated blood pressure 217/120, repeated blood pressures which were markedly elevated. And while TIA as a history the patient has had in the past the possibility of malignant hypertension given his headache and expressive difficulty is also possible. CT scan of the head does not show a bleed. Given the blood pressure the patient was given labetalol 20 mg IV and a significant improvement of the headache occurred as well as an improvement in the patient's symptoms. I discussed the patient with the hospitalist, , he agrees that the patient could be brought into the hospital for further monitoring and evaluation. 07/29/20 01:58 Patient is resting comfortably, continues to have headache and some word finding difficulty. 07/29/20 02:10 This patient is not a candidate for TPA, his is NIH score 2 (language difficulty). With a markedly elevated blood pressure and headache may likely be due to hypertension. The scan does not show bleed or other acute finding. I have ordered a dose of aspirin. 07/29/20 02:16 - Vital Signs Vital signs: Temp Pulse Resp BP Pulse Ox 97.9 F 61 16 165/79 H 97 07/31/20 00:07 07/31/20 00:07 07/31/20 00:07 07/31/20 00:07 07/31/20 00:07 - Laboratory Results Result Diagrams: 07/30/20 08:24 07/30/20 08:24 Laboratory Results Interpreted: 07/28/20 07/28/20 07/28/20 23:55 23:55 23:55 RDW 16.0 H Plt Count 119 L Eos % (Auto) 6.4 H Potassium 3.4 L Carbon Dioxide 35 H BUN 21 H Glucose 116 H Creatine Kinase 26 L Triglycerides HDL Cholesterol Urine Protein 07/29/20 07/29/20 03:12 06:33 RDW Plt Count Eos % (Auto) Potassium Carbon Dioxide BUN Glucose Creatine Kinase Triglycerides 151 H HDL Cholesterol 29 L Urine Protein 30 H 07/29/20 01:34 I have reviewed laboratory data and used this information for the treatment decisions regarding the patient. Critical Laboratory Results Reviewed: No Critical Results - Radiology Results Radiology Results Interpreted: 07/29/20 02:[address] 07/28/20 23:58 IMPRESSION: 1. No acute intracranial findings. 2. Chronic ischemic changes as on prior exam. Chest X-Ray 07/29/20 00:00 IMPRESSION: 1. Low lung volumes with compressive changes and minimal nonspecific patchy bibasilar opacities. 2. Stable appearance of the cardiac silhouette with stable positioning of cardiac pacer device. Critical Radiology Results Reviewed: No Critical Results - EKG Interpretation by Mo Rhythm: Other - EKG interpreted by Dr. Biggs: Atrial paced rhythm, rate 60, LA interval 168 ms QT interval 516 ms, left axis,RBBB,LAFB0, LVH, no ischemic findings, compared to EKG dated 09/10/2018, there are no acute interval abnormalities.. Interpretation Abnormal EKG Critical Care Note - Critical Care Note Total time excluding time spent on procedures (mins): 45 - Critical care time spent obtaining history from patient or surrogate, discussions with consultants, development of treatment plan with patient or surrogate, evaluation of patient's response to treatment, examination of patient, ordering and performing treatments and interventions, ordering and review of laboratory studies, re- evaluation of patient's condition, ordering and review of radiographic studies and review of old charts Discharge - Discharge Clinical Impression: Malignant hypertension, TIA (transient ischemic attack), Expressive dysphasia Headache Qualifiers: Headache type: unspecified Headache chronicity pattern: unspecified pattern Intractability: not intractable Qualified Code(s): R51.9 - Headache, unspecified Condition: Good Disposition: ADMITTED INPATIENT Admitting Provider: Dr Colorado - Hospitalist
--- NOTE | 2020-07-29 01:35 | RADIOLOGY REPORT (SQ) ---
EXAM DESCRIPTION: X-RAY CHEST- One View CLINICAL HISTORY: Stroke like symptoms, shortness of breath COMPARISON: September 08, 2019 TECHNIQUE: Single view of the chest. FINDINGS: There are overlying EKG leads. Low lung volumes with compressive changes. Minimal patchy opacities overlying the bilateral lung bases. The pulmonary vascularity is normal. The cardiomediastinal silhouette is stable in size. Left chest wall cardiac pacer device is in stable position. Osseous structures are unchanged.. IMPRESSION: 1. Low lung volumes with compressive changes and minimal nonspecific patchy bibasilar opacities. 2. Stable appearance of the cardiac silhouette with stable positioning of cardiac pacer device.
--- NOTE | 2020-07-29 02:07 | RADIOLOGY REPORT (SQ) ---
EXAM DESCRIPTION: Site: CT HEAD WITHOUT RP: CT HEAD WITHOUT IV CONTRAST CLINICAL HISTORY: 80 years Male; Speech difficulty/stroke; TECHNIQUE: Noncontrast CT head. All CT scans at this facility use dose modulation, iterative reconstruction, and/or weight based dosing when appropriate to reduce radiation dose to as low as reasonably achievable. COMPARISON: 09/08/2019 FINDINGS: Brain: Scattered low-density changes in the cerebral white matter are similar to prior exam, nonspecific but typical for moderate chronic small vessel disease. No acute hemorrhage or mass effect. No acute cortical edema. Ventricles and cisterns are preserved. Sinuses: Visualized portions of paranasal sinuses and mastoids are clear. Calvarium: No acute calvarial fractures or focal lesion. IMPRESSION: 1. No acute intracranial findings. 2. Chronic ischemic changes as on prior exam.
[2020-07-29] MEDS ORDERED: DEXTROSE 50%-WATER 25 GM/50 ML DISP.SYRIN IV PRN ×2 (02:58)
[2020-07-29] MEDS ORDERED: DEXTROSE 40% GEL 15 GM TUBE PO PRN ×2 (02:58)
[2020-07-29] MEDS ORDERED: GLUCAGON,HUMAN RECOMB 1 MG INJ SUBCUT PRN (02:58)
[2020-07-29 03:43] LABS: APPEARANCE,URINE CLEAR; BILIRUBIN,URINE NEGATIVE (NEGATIVE); COLOR,URINE YELLOW; GLUCOSE, URINE NEGATIVE (NEGATIVE); KETONES,URINE NEGATIVE (NEGATIVE); PROTEIN,URINE 30 mg/dL (NEGATIVE); URINE SPECIFIC GRAVITY 1.015; UROBILINOGEN,URINE NEGATIVE mg/dL (<2.0)
--- NOTE | 2020-07-29 04:11 | PDOC H&P ---
History of Present Illness Admission Date/PCP: 07/29/20 02:49 HOWARD CARSON NP Patient complains of: Worsening aphasia History of Present Illness: VIKTORIA THOMAS is a 80 year old male with a history of CVA, hypertension, paroxysmal A. fib status post pacemaker placement, hypothyroidism, CAD, type 2 diabetes and depression was brought in via EMS for altered mental status. Patient follows command but due to expressive aphasia history is difficult to obtain. Most of history is from ER signout and chart review. Patient's last known to be not his baseline around 1830 on 07/28/2020 at which time he went to bed. Around 2200 this evening patient woke up to go to the bathroom and he was found to be altered speaking erratically and completely naked. He has multiple history of admission for TIA like symptoms with slurred speech and motor weakness which resolved. On arrival to the ED patient's blood pressure was elevated at 212/117 and per ED report, he had received labetalol. During my exam patient understands questions and follows commands but has expressive aphasia with difficulty of finding words. He reports that he has a headache and states that he feels better than the time he came in but denies chest pain, shortness of breath, blurring of vision. He is frustrated that he cannot put out words. Past Medical History Cardiac Medical History: Reports: Atrial Fibrillation, Coronary Artery Disease, Hyperlipidema, Hypertension Denies: Myocardial Infarction Pulmonary Medical History: Denies: Asthma, Bronchitis, Chronic Obstructive Pulmonary Disease (COPD), Pneumonia, Tuberculosis Neurological Medical History: Denies: Seizures Endocrine Medical History: Reports: Diabetes Mellitus Type 2, Hypothyroidism Denies: Hyperthyroidism GI Medical History: Reports: Hiatal Hernia Denies: Cirrhosis, Hepatitis Musculoskeltal Medical History: Reports: Arthritis - GENERALIZED Denies: Gout Skin Medical History: Denies: Eczema, Psoriasis Psychiatric Medical History: Reports: Depression Hematology: Denies: Anemia, Sickle Cell Disease, Bleeding Tendencies Past Surgical History Past Surgical History: Reports: Appendectomy, Orthopedic Surgery - B knee replacements, Tonsillectomy Denies: Pacemaker Social History Information Source: Patient Lives with: Family Smoking Status: Never Smoker Frequency of Alcohol Use: Occasional Hx Recreational Drug Use: No Drugs: None Hx Prescription Drug Abuse: No - Advance Directive Resuscitation Status: Full Code Family History Family History: CAD. denies: DM, Hypertension, Malignancy Parental Family History Reviewed: No - Unable to obtain due to aphasia Children Family History Reviewed: No Sibling(s) Family History Reviewed.: No Medication/Allergy Home Medications: Atorvastatin Calcium [Lipitor 40 mg Tablet] 40 mg PO QHS 09/09/19 Gabapentin [Neurontin 300 mg Capsule] 600 mg PO Q8 09/09/19 Hydrochlorothiazide [Hydrodiuril 25 mg Tablet] 25 mg PO QAM 09/09/19 Levothyroxine Sodium [Synthroid 0.1 mg Tablet] 0.1 mg PO Q6AM 09/09/19 Metformin HCl [Glucophage 500 mg Tablet] 1,000 mg PO MEALS 09/09/19 Paroxetine HCl [Paxil 20 mg Tablet] 20 mg PO DAILY 09/09/19 Propafenone HCl [Rythmol Sr] 225 mg PO Q8 09/09/19 Tamsulosin HCl [Flomax 0.4 mg Cap.sr] 0.4 mg PO DAILY 09/09/19 Acetaminophen [Tylenol 325 mg Tablet] 650 mg PO Q4HP PRN tablet 09/10/19 Aspirin [Aspirin 81 mg Chewable Tablet] 81 mg PO DAILY #1 pkg 09/10/19 Clopidogrel Bisulfate [Plavix 75 mg Tablet] 75 mg PO DAILY #20 tablet 09/10/19 Hydralazine HCl [Apresoline 25 mg Tablet] 25 mg PO Q8 #90 tablet 09/10/19 Losartan Potassium [Cozaar 50 mg Tablet] 50 mg PO Q12 #60 tablet 09/10/19 Meclizine HCl [Antivert 12.5 mg Tablet] 12.5 mg PO BIDP PRN #14 tab 09/10/19 Allergies/Adverse Reactions: amlodipine Allergy (Verified 08/27/18 16:17) lisinopril Allergy (Verified 08/27/18 16:17) Review of Systems ROS unobtainable: Due to mental status, Other - Due to expressive aphasia Physical Exam Vital Signs: Temp Pulse Resp BP Pulse Ox 97.4 F 61 18 152/92 H 96 07/29/20 00:25 07/29/20 00:25 07/29/20 02:31 07/29/20 02:46 07/29/20 02:46 Intake & Output 07/27/20 07/28/20 07/29/20 06:59 06:59 06:59 Weight 93.4 kg Additional comments: GENERAL APPEARANCE: Alert and oriented x3, in no acute distress HEENT: Normocephalic and atraumatic. No scleral icterus. Moist oral mucosa NECK: Supple. No lymphadenopathy or tenderness. No JVD CHEST: Symmetric. Nontender to palpation. LUNGS: Clear with good air entry bilaterally. No wheezing or crackles HEART: Regular rate and rhythm with normal S1 and S2. No murmurs, gallops, or rubs. ABDOMEN:soft, active bowel sounds, no direct or rebound tenderness. No organomegaly detected. EXTREMITIES: No cyanosis, clubbing, or edema. MUSCULOSKELETAL: No deformity, atrophy or swelling noted PSYCHIATRIC: Recent and remote memory is intact. Appropriate mood and affect. SKIN: Warm, dry, and well perfused. No lesions or rashes are noted. NEUROLOGIC: Cranial nerves II through XII grossly intact Motor: Power is 5/5 in all upper and lower extremities Normal muscle tone, no atrophy, no fasciculations Sensory: Sensation was intact to light touch symmetrically in upper and lower extremities Reflexes: +2 symmetrically at biceps, triceps, knee. Has no clonus. Babinski was equivocal Results Laboratory Results: 07/28/20 23:55 07/28/20 23:55 07/28/20 07/28/20 07/29/20 23:55 23:55 00:53 WBC 7.0 RBC 5.23 Hgb 14.5 Hct 43.1 MCV 82 MCH 27.7 MCHC 33.6 RDW 16.0 H Plt Count 119 L Seg Neutrophils % 55.4 Sodium 140.1 Potassium 3.4 L Chloride 99 Carbon Dioxide 35 H Anion Gap 6 BUN 21 H Creatinine 0.89 Est GFR ( Amer) > 60 Glucose 116 H Lactic Acid 1.5 Calcium 10.1 Total Bilirubin 0.5 AST 20 Alkaline Phosphatase 72 Total Protein 7.8 Albumin 4.3 07/28/20 07/28/20 07/28/20 23:55 23:55 23:55 Creatine Kinase 26 L CK-MB (CK-2) 1.27 Troponin I 0.013 NT-Pro-B Natriuret Pep 371 Impressions: Head CT 07/28/20 23:58 IMPRESSION: 1. No acute intracranial findings. 2. Chronic ischemic changes as on prior exam. Chest X-Ray 07/29/20 00:00 IMPRESSION: 1. Low lung volumes with compressive changes and minimal nonspecific patchy bibasilar opacities. 2. Stable appearance of the cardiac silhouette with stable positioning of cardiac pacer device. Assessment and Plan - Diagnosis (1) Expressive aphasia Is this a current diagnosis for this admission?: Yes Plan: Patient presents with AMS with expressive aphasia He was last known to be at his baseline about 6 hours prior to presentation Symptoms are highly concerning for stroke versus hypertensive encephalopathy Patient was out of window period on presentation NIH stroke score was [address] without contrast showed no sign of intracranial bleeding but chronic ischemic changes were noted MRI could not be obtained due to the fact that patient has pacemaker Ordered CTA head and neck and echocardiogram Lipid panel in the morning Will be kept n.p.o. until swallow eval is done Admitted to [facility], continuous telemetry monitoring Placed on neurochecks, fall precaution, seizure and aspiration precaution PT/OT and speech evaluation consults placed Continued him on aspirin, atorvastatin (2) Hypertensive emergency Is this a current diagnosis for this admission?: Yes Plan: On presentation patient's blood pressure was 212/117 Has signs of endorgan damage, presenting with expressive aphasia, confusion and headache possibly due to hypertensive encephalopathy Patient denies chest pain and cardiac enzymes are negative EKG shows paced rhythm Was given labetalol at the ED currently his blood pressure is in the 160s by 90s Target will be to decrease his systolic blood pressure by 20 to 25% in the first 24 hours Will hold off on his home antihypertensive medication for now to allow permissive hypertension due to symptoms concerning for TIA/stroke Closely monitor vital signs Trend cardiac enzymes every 6 hourly x2 Continue telemetry monitoring (3) Hypothyroidism Is this a current diagnosis for this admission?: Yes Plan: We will obtain TSH level in the morning Continue levothyroxine (4) History of CVA (cerebrovascular accident) Is this a current diagnosis for this admission?: Yes Plan: Now admitted with symptoms concerning for stroke Continue management as stated above Continue aspirin and atorvastatin (5) Coronary artery disease Is this a current diagnosis for this admission?: Yes Plan: Patient denies chest pain Now admitted with hypertensive emergency Will optimally control blood pressure Usual cardiac enzymes were negative EKG shows paced rhythm Trending cardiac enzymes Continue aspirin and high intensity statin (6) Depression Is this a current diagnosis for this admission?: Yes Plan: Continue fluoxetine (7) Hyperlipidemia Qualifiers: Hyperlipidemia type: unspecified Qualified Code(s): E78.5 - Hyperlipidemia, unspecified Is this a current diagnosis for this admission?: Yes Plan: Obtain lipid panel in the morning Continue atorvastatin 40 mg nightly (8) Paroxysmal atrial fibrillation Is this a current diagnosis for this admission?: Yes Plan: Status post pacemaker placement Currently not on anticoagulation Rate is well controlled Continue telemetry monitoring We will continue home medications (9) Type 2 diabetes mellitus Is this a current diagnosis for this admission?: Yes Plan: Placed him on sliding scale insulin, hypoglycemia protocol and Accu-Cheks - Time Time Spent with patient: 35 or more minutes Total Critical Time (Minutes): 50 Medications reviewed and adjusted accordingly: Yes Anticipated Discharge Disposition: Home, Self Care Anticipated Discharge Timeframe: within 48 hours - Inpatient Certification Based on my medical assessment, after consideration of the patient's comorbidities, presenting symptoms, or acuity I expect that the services needed warrant INPATIENT care.: Yes I certify that my determination is in accordance with my understanding of Medicare's requirements for reasonable and necessary INPATIENT services [42 CFR 412.3e].: Yes Medical Necessity: Significant Comorbidiites Make Outpatient Treatment Too Risky, Need Close Monitoring Due to Risk of Patient Decompensation, Need For Continuous Telemetry Monitoring, Need for Neurological Checks Post Hospital Care: D/C or Transfer Summary
[2020-07-29] MEDS: NORMAL SALINE 1000 ML 1,000 ML IV PRN ×2 (04:40→14:20)
[2020-07-29] MEDS: ACETAMINOPHEN 325 MG TABLET PO PRN ×3 (04:49→23:26)
--- NOTE | 2020-07-29 05:19 | RADIOLOGY REPORT (SQ) ---
EXAM DESCRIPTION: CTA NECK (accession [id number]), CTA HEAD (accession [id number]) RadLex: CT NECK ANGIOGRAPHY WITHOUT THEN WITH IV CONTRAST, CT HEAD ANGIOGRAPHY WITHOUT THEN WITH IV CONTRAST CLINICAL HISTORY: 80 years Male; Strokelike symptoms; TECHNIQUE: CT angiogram of the head and neck using intravenous contrast. MIP reconstructions were performed. Stenosis measurements performed using NASCET criteria. All CT scans at this facility use dose modulation, iterative reconstruction, and/or weight based dosing when appropriate to reduce radiation dose to as low as reasonably achievable. COMPARISON: None available FINDINGS: Neck: Aortic arch: Minimal calcific plaque Right carotid: No focal stenosis or intraluminal filling defects. Left carotid: No focal stenosis or intraluminal filling defects. Right vertebral: No focal stenosis or intraluminal filling defects. Left vertebral: No focal stenosis or intraluminal filling defects. Degenerative facet arthropathy and disc disease in the cervical spine. Head: 2.5 mm slice thickness was provided. This is inadequate to reliably measure a small vessel stenosis or evaluate for a small aneurysm. ICA: Calcific plaque along cavernous and supraclinoid segments. Vertebrals: patent Basilar:patent DESKTOP SUPPORT ASSOCIATE: patent bilaterally Posterior communicating arteries:patent Anterior communicating artery: patent OLIVIA: patent bilaterally MCA: patent bilaterally No aneurysm greater than 5 mm. Pedro matter enhancement is symmetric. No filling defects in the major dural venous sinuses. IMPRESSION: 1. Mild atherosclerosis 2. No significant stenosis of the cervical carotid or vertebral arteries. 3. No acute intracranial large vessel occlusion
--- NOTE | 2020-07-29 05:19 | RADIOLOGY REPORT (SQ) ---
EXAM DESCRIPTION: CTA NECK (accession [id number]), CTA HEAD (accession [id number]) RadLex: CT NECK ANGIOGRAPHY WITHOUT THEN WITH IV CONTRAST, CT HEAD ANGIOGRAPHY WITHOUT THEN WITH IV CONTRAST CLINICAL HISTORY: 80 years Male; Strokelike symptoms; TECHNIQUE: CT angiogram of the head and neck using intravenous contrast. MIP reconstructions were performed. Stenosis measurements performed using NASCET criteria. All CT scans at this facility use dose modulation, iterative reconstruction, and/or weight based dosing when appropriate to reduce radiation dose to as low as reasonably achievable. COMPARISON: None available FINDINGS: Neck: Aortic arch: Minimal calcific plaque Right carotid: No focal stenosis or intraluminal filling defects. Left carotid: No focal stenosis or intraluminal filling defects. Right vertebral: No focal stenosis or intraluminal filling defects. Left vertebral: No focal stenosis or intraluminal filling defects. Degenerative facet arthropathy and disc disease in the cervical spine. Head: 2.5 mm slice thickness was provided. This is inadequate to reliably measure a small vessel stenosis or evaluate for a small aneurysm. ICA: Calcific plaque along cavernous and supraclinoid segments. Vertebrals: patent Basilar:patent PUBLIC RELATIONS SENIOR ASSOCIATE: patent bilaterally Posterior communicating arteries:patent Anterior communicating artery: patent OLIVIA: patent bilaterally MCA: patent bilaterally No aneurysm greater than 5 mm. Pedro matter enhancement is symmetric. No filling defects in the major dural venous sinuses. IMPRESSION: 1. Mild atherosclerosis 2. No significant stenosis of the cervical carotid or vertebral arteries. 3. No acute intracranial large vessel occlusion
[2020-07-29 07:54] LABS: TRIGLYCERIDES 151 mg/dL (<150)
[2020-07-29 08:04] LABS: DIRECT LDL 71 mg/dL (<100)
[2020-07-29 08:24] LABS: VLDL CHOLESTEROL 30.2 mg/dL (10-31)
[2020-07-29] MEDS: ENOXAPARIN SODIUM INJ 40 MG/0.4 ML DISP.SYRIN SUBCUT SCH (09:18)
[2020-07-29] MEDS: FAMOTIDINE 20 MG TABLET PO SCH ×2 (09:18→22:24)
[2020-07-29] MEDS: CLOPIDOGREL BISULFATE 75 MG TABLET PO SCH (09:18)
[2020-07-29] MEDS: ASPIRIN 81 MG TABLET, CHEWABLE PO SCH (09:18)
[2020-07-29] MEDS: LEVOTHYROXINE SODIUM 0.1 MG TABLET PO SCH (15:25)
[2020-07-29] MEDS: LOSARTAN POTASSIUM 25 MG TABLET PO SCH ×2 (16:07→22:23)
--- NOTE | 2020-07-29 17:26 | EKG REPORT ---
SEVERITY:- ABNORMAL ECG - ATRIAL-PACED COMPLEXES RBBB AND LAFB PROBABLE LEFT VENTRICULAR HYPERTROPHY : Confirmed by: Ama Blevins MD 29-Jul-2020 17:26:03
[2020-07-29] MEDS ORDERED: ATORVASTATIN CALCIUM 40 MG TABLET PO SCH (22:00)
[2020-07-29] MEDS: ATORVASTATIN CALCIUM 40 MG TABLET PO SCH (22:23)
[2020-07-29] MEDS ORDERED: LORAZEPAM 1 MG TABLET PO ONE (23:45)
[2020-07-30] MEDS: NORMAL SALINE 1000 ML 1,000 ML IV PRN ×2 (06:41→20:36)
[2020-07-30 08:37] LABS: ABSOLUTE EOSINOPHILS # (AUTO) 0.4 10^3/uL (0.0-0.6); ABSOLUTE LYMPHOCYTES (AUTO) 1.7 10^3/uL (0.5-4.7); ABSOLUTE MONOCYTES (AUTO) 0.7 10^3/uL (0.1-1.4); ABSOLUTE NEUT (AUTO) 3.3 10^3/uL (1.7-8.2); BASOPHILS % (AUTO) 0.7 % (0-2); EOSINOPHILS % (AUTO) 6.1 % (0-6); HEMATOCRIT 41.1 % (37.9-51.0); HEMOGLOBIN 13.8 g/dL (13.5-17.0); LYMPHOCYTES % (AUTO) 27.5 % (13-45); MEAN CORPUSCULAR HEMOGLOBIN 27.5 pg (27.0-33.4); MEAN CORPUSCULAR HGB CONC 33.5 g/dL (32.0-36.0); MEAN CORPUSCULAR VOLUME 82 fl (80-97); MONOCYTES % (AUTO) 11.2 % (3-13); PLATELET COUNT 108 10^3/uL (150-450); RED BLOOD COUNT 5.01 10^6/uL (4.35-5.55); RED CELL DISTRIBUTION WIDTH 15.7 % (11.5-14.0); SEGMENTED NEUTROPHILS % (AUTO) 54.5 % (42-78); TOTAL CELLS COUNTED % (AUTO) 100 %; WHITE BLOOD COUNT 6.1 10^3/uL (4.0-10.5)
[2020-07-30 08:58] LABS: ANION GAP 7 (5-19); BLOOD UREA NITROGEN 12 mg/dL (7-20); CALCIUM 9.7 mg/dL (8.4-10.2); CARBON DIOXIDE 29 mmol/L (22-30); CHLORIDE 104 mmol/L (98-107); GLUCOSE 119 mg/dL (75-110); POTASSIUM 3.2 mmol/L (3.6-5.0)
[2020-07-30] MEDS ORDERED: LOSARTAN POTASSIUM 25 MG TABLET PO SCH (10:00)
[2020-07-30] MEDS: FAMOTIDINE 20 MG TABLET PO SCH ×2 (10:38→22:22)
[2020-07-30] MEDS: ASPIRIN 81 MG TABLET, CHEWABLE PO SCH (10:38)
[2020-07-30] MEDS: LEVOTHYROXINE SODIUM 0.1 MG TABLET PO SCH (10:39)
[2020-07-30] MEDS: CLOPIDOGREL BISULFATE 75 MG TABLET PO SCH (10:39)
[2020-07-30] MEDS: ENOXAPARIN SODIUM INJ 40 MG/0.4 ML DISP.SYRIN SUBCUT SCH (10:52)
[2020-07-30] MEDS ORDERED: LABETALOL HCL INJ 20 MG/4 ML DISP.SYRIN IV ONE (13:30)
[2020-07-30] MEDS ORDERED: ENOXAPARIN SODIUM INJ 40 MG/0.4 ML DISP.SYRIN SUBCUT ONE (13:30)
[2020-07-30] MEDS: HYDRALAZINE HCL 25 MG TABLET PO SCH ×2 (13:46→22:23)
[2020-07-30] MEDS ORDERED: HYDRALAZINE HCL 10 MG TABLET PO SCH (14:00)
[2020-07-30] MEDS ORDERED: ZIPRASIDONE MESYLATE INJ/PF 20 MG SDV IM PRN (15:44)
--- NOTE | 2020-07-30 15:51 | PDOC PROGRESS REPORT ---
Subjective Date:: 07/30/20 Subjective:: The patient is a 80-year-old male with a past medical history of atrial fibrillation, CAD, hyperlipidemia, hypertension, DM 2, hypothyroidism, arthritis, depression, and prior CVA who was admitted 07/29/2024 expressive aphasia and hypertensive emergency. Patient was seen on afternoon rounds. He is found resting in bed, comfortably, on supplemental oxygen via nasal cannula. His was at bedside. He is alert and oriented x4. He occasionally has a slight difficulty with word finding, however, he is able to self-correct and is easy to communicate with. I did not note any confusion or expressive aphasia during the time of my assessment. However, both the patient's and nursing reports that he has had intermittent episodes of increased confusion and agitation. There are no focal deficits noted. Patient denies fever, chills, headache, dizziness, chest pain, palpitations, dyspnea, orthopnea, abdominal pain, nausea, vomiting, diarrhea. They have no questions or concerns at this time. No other concerns per nursing. Reason For Visit: STROKELIKE SYMPTOMS,HYPERTENSIVE EMERGENCY, Physical Exam Vital Signs: Temp Pulse Resp BP Pulse Ox 98.0 F 60 15 188/112 H 95 07/30/20 11:42 07/30/20 15:00 07/30/20 11:42 07/30/20 15:00 07/30/20 11:42 Intake & Output 07/29/20 07/30/20 07/31/20 06:59 06:59 06:59 Intake Total 2065 Output Total 500 Balance 1565 Weight 93.4 kg 111.6 kg General appearance: PRESENT: no acute distress, cooperative, obese, well- developed, well-nourished Head exam: PRESENT: atraumatic, normocephalic Eye exam: PRESENT: conjunctiva pink, EOMI, PERRLA. ABSENT: scleral icterus Mouth exam: PRESENT: moist, tongue midline Neck exam: ABSENT: carotid bruit, JVD, lymphadenopathy, thyromegaly Respiratory exam: PRESENT: clear to auscultation isaias, symmetrical, unlabored, other - room air. ABSENT: rales, rhonchi, wheezes Cardiovascular exam: PRESENT: RRR, +S1, +S2. ABSENT: diastolic murmur, rubs, systolic murmur Vascular exam: PRESENT: normal capillary refill Extremities exam: PRESENT: full ROM. ABSENT: calf tenderness, clubbing, pedal edema Musculoskeletal exam: PRESENT: ambulatory - poor balance Neurological exam: PRESENT: alert, awake, oriented to person, oriented to place, oriented to time, oriented to situation, CN II-XII grossly intact, other - Occasional word finding difficulty; self corrects and easily understood. No focal deficits noted, slurred speech, or facial symmetry. Photo Producer equal bilaterally.. ABSENT: motor sensory deficit Psychiatric exam: PRESENT: appropriate affect, normal mood. ABSENT: homicidal ideation, suicidal ideation Skin exam: PRESENT: dry, intact, warm. ABSENT: cyanosis, rash Results Laboratory Results: 07/30/20 08:24 07/30/20 08:24 07/30/20 07/30/20 08:24 08:24 WBC 6.1 RBC 5.01 Hgb 13.8 Hct 41.1 MCV 82 MCH 27.5 MCHC 33.5 RDW 15.7 H Plt Count 108 L Seg Neutrophils % 54.5 Sodium 140.0 Potassium 3.2 L Chloride 104 Carbon Dioxide 29 Anion Gap 7 BUN 12 Creatinine 0.76 Est GFR ( Amer) > 60 Glucose 119 H Calcium 9.7 07/28/20 07/28/20 07/28/20 23:55 23:55 23:55 Creatine Kinase 26 L CK-MB (CK-2) 1.27 Troponin I 0.013 NT-Pro-B Natriuret Pep 371 07/29/20 07/29/20 06:33 12:36 Creatine Kinase CK-MB (CK-2) Troponin I 0.019 0.012 NT-Pro-B Natriuret Pep Impressions: Head CT 07/28/20 23:58 IMPRESSION: 1. No acute intracranial findings. 2. Chronic ischemic changes as on prior exam. Chest X-Ray 07/29/20 00:00 IMPRESSION: 1. Low lung volumes with compressive changes and minimal nonspecific patchy bibasilar opacities. 2. Stable appearance of the cardiac silhouette with stable positioning of cardiac pacer device. Head CTA 07/29/20 00:00 IMPRESSION: 1. Mild atherosclerosis 2. No significant stenosis of the cervical carotid or vertebral arteries. 3. No acute intracranial large vessel occlusion Neck CTA 07/29/20 00:00 IMPRESSION: 1. Mild atherosclerosis 2. No significant stenosis of the cervical carotid or vertebral arteries. 3. No acute intracranial large vessel occlusion Assessment and Plan - Diagnosis (1) Hypertensive emergency Is this a current diagnosis for this admission?: Yes Plan: On presentation patient's blood pressure was 212/117 Has signs of endorgan damage, presenting with expressive aphasia, confusion and headache possibly due to hypertensive encephalopathy Patient denies chest pain and cardiac enzymes are negative x3; EKG shows paced rhythm Head CT was negative for acute findings. Allowed permissive hypertension x24 hours due to symptoms concerning for TIA/stroke Will now start to gradually decreased BP. Start Losartan 50 mg BID (Takes 200 mg daily at home) Continue Hydralazine 25 mg q8 hours (home dose) IV Labetalol prn BP control. (2) Expressive aphasia Is this a current diagnosis for this admission?: Yes Plan: Minor word finding difficulty today. A&Ox4. Patient presents with AMS with expressive aphasia; possibly hypertensive encephalopathy. Head CT without contrast showed no sign of intracranial bleeding but chronic ischemic changes were noted MRI could not be obtained due to the fact that patient has pacemaker CTA Head/Neck shows mild athersclerosis Admitted to [facility], continuous telemetry monitoring PT/OT and speech evaluation consults placed Continued him on aspirin, atorvastatin Obtain control of patient's HTN. If continues to have expressive aphasia/confusion in the morning, will obtain repeat Head CT. (3) Coronary artery disease Is this a current diagnosis for this admission?: Yes Plan: Patient denies chest pain Now admitted with hypertensive emergency Troponin negative x3 EKG shows paced rhythm Will optimally control blood pressure Continue aspirin and high intensity statin (4) Hyperlipidemia Qualifiers: Hyperlipidemia type: unspecified Qualified Code(s): E78.5 - Hyperlipidemia, unspecified Is this a current diagnosis for this admission?: Yes Plan: Triglycerides 151, TChol 129, LDL 71, HDL 29 Continue atorvastatin 80 mg nightly Cardiac diet. (5) Hypothyroidism Is this a current diagnosis for this admission?: Yes Plan: TSH 1.84 Continue home dose levothyroxine (6) Paroxysmal atrial fibrillation Is this a current diagnosis for this admission?: Yes Plan: Status post pacemaker placement Currently not on anticoagulation Rate is well controlled Continue telemetry monitoring Have continued home medications (7) Type 2 diabetes mellitus Qualifiers: Diabetes mellitus penitentiary insulin use: without rn long term care use Is this a current diagnosis for this admission?: Yes Plan: Placed him on sliding scale insulin, hypoglycemia protocol and Accu-Cheks (8) History of CVA (cerebrovascular accident) Is this a current diagnosis for this admission?: Yes Plan: Continue aspirin and atorvastatin (9) Depression Is this a current diagnosis for this admission?: Yes Plan: Continue fluoxetine - Time Time Spent with patient: 35 or more minutes Medications reviewed and adjusted accordingly: Yes Anticipated Discharge Disposition: Home with Home Health Anticipated Discharge Timeframe: within 48 hours
[2020-07-30] MEDS ORDERED: POTASSIUM CHLORIDE 10 MEQ TABLET.ER PO ONE ×2 (15:52→18:25)
[2020-07-30] MEDS ORDERED: LABETALOL HCL INJ 20 MG/4 ML DISP.SYRIN IV PRN (17:32)
[2020-07-30] MEDS ORDERED: PROPAFENONE HCL 225 MG PO SCH (22:00)
[2020-07-30] MEDS: MELATONIN 3 MG TABLET PO SCH (22:21)
[2020-07-30] MEDS: ATORVASTATIN CALCIUM 40 MG TABLET PO SCH (22:21)
[2020-07-30] MEDS: GABAPENTIN 300 MG CAPSULE PO SCH (22:22)
[2020-07-30] MEDS: LOSARTAN POTASSIUM 50 MG TABLET PO SCH (22:23)
[2020-07-31] MEDS: LEVOTHYROXINE SODIUM 0.1 MG TABLET PO SCH (06:13)
[2020-07-31] MEDS: GABAPENTIN 300 MG CAPSULE PO SCH ×3 (06:13→21:05)
[2020-07-31] MEDS: HYDRALAZINE HCL 25 MG TABLET PO SCH ×3 (06:13→21:05)
[2020-07-31 06:20] LABS: HEMATOCRIT 43.2 % (37.9-51.0); HEMOGLOBIN 14.3 g/dL (13.5-17.0); MEAN CORPUSCULAR HEMOGLOBIN 27.3 pg (27.0-33.4); MEAN CORPUSCULAR VOLUME 83 fl (80-97); PLATELET COUNT 106 10^3/uL (150-450); RED BLOOD COUNT 5.23 10^6/uL (4.35-5.55); RED CELL DISTRIBUTION WIDTH 15.6 % (11.5-14.0); WHITE BLOOD COUNT 7.4 10^3/uL (4.0-10.5)
[2020-07-31 07:02] LABS: ANION GAP 11 (5-19); BLOOD UREA NITROGEN 9 mg/dL (7-20); CALCIUM 9.8 mg/dL (8.4-10.2); CARBON DIOXIDE 30 mmol/L (22-30); CHLORIDE 103 mmol/L (98-107); GLUCOSE 110 mg/dL (75-110); POTASSIUM 3.1 mmol/L (3.6-5.0)
[2020-07-31] MEDS ORDERED: POTASSIUM CHLORIDE 10 MEQ TABLET.ER PO ONE (08:15)
[2020-07-31] MEDS: FAMOTIDINE 20 MG TABLET PO SCH ×2 (09:54→21:05)
[2020-07-31] MEDS: HYDROCHLOROTHIAZIDE 25 MG TABLET PO SCH (09:54)
[2020-07-31] MEDS: ASPIRIN 325 MG TABLET PO SCH (09:55)
[2020-07-31] MEDS: CLOPIDOGREL BISULFATE 75 MG TABLET PO SCH (09:55)
[2020-07-31] MEDS: LOSARTAN POTASSIUM 50 MG TABLET PO SCH ×2 (09:55→21:05)
[2020-07-31] MEDS: ENOXAPARIN SODIUM INJ 40 MG/0.4 ML DISP.SYRIN SUBCUT SCH (09:55)
[2020-07-31] MEDS: PAROXETINE HCL 20 MG TABLET PO SCH (09:55)
[2020-07-31] MEDS: TAMSULOSIN HCL 0.4 MG CAP.SR.24H PO SCH (09:55)
[2020-07-31] MEDS: NORMAL SALINE 1000 ML 1,000 ML IV PRN ×2 (09:56→22:48)
[2020-07-31] MEDS ORDERED: CARVEDILOL 6.25 MG TABLET PO SCH (10:00)
--- NOTE | 2020-07-31 12:01 | PDOC PROGRESS REPORT ---
Subjective Date:: 07/31/20 Subjective:: The patient is a 80-year-old male with a past medical history of atrial fibrillation, CAD, hyperlipidemia, hypertension, DM 2, hypothyroidism, arthritis, depression, and prior CVA who was admitted 07/29/2024 expressive aphasia and hypertensive emergency. Patient was seen on afternoon rounds. He is found resting in bed, comfortably, on room air. He was sleeping, but woke easily. He is A&Ox4; denies all complaints. There are no focal deficits noted. Patient denies fever, chills, headache, dizziness, chest pain, palpitations, dyspnea, orthopnea, abdominal pain, nausea, vomiting, diarrhea. He has no questions or concerns at this time. Discussed with nursing; blood pressures remain elevated though significantly improved. No confusion, agitation, or behavioral disturbances reported. Reason For Visit: STROKELIKE SYMPTOMS,HYPERTENSIVE EMERGENCY, Physical Exam Vital Signs: Temp Pulse Resp BP Pulse Ox 98.0 F 61 17 164/102 H 94 07/31/20 07:29 07/31/20 07:29 07/31/20 07:29 07/31/20 07:29 07/31/20 07:29 Intake & Output 07/30/20 07/31/20 08/01/20 06:59 06:59 06:59 Intake Total 2065 1497 1000 Output Total 500 1200 Balance 9470 879 7728 Weight 111.6 kg 111.5 kg General appearance: PRESENT: no acute distress, cooperative, hard of hearing, obese, well-developed, well-nourished Head exam: PRESENT: atraumatic, normocephalic Eye exam: PRESENT: conjunctiva pink, EOMI, PERRLA. ABSENT: scleral icterus Ear exam: PRESENT: other - Thick, dried cerumen noted bilaterally Mouth exam: PRESENT: moist, tongue midline Respiratory exam: PRESENT: clear to auscultation isaias, symmetrical, unlabored, other - Room air. ABSENT: rales, rhonchi, wheezes Cardiovascular exam: PRESENT: RRR. ABSENT: diastolic murmur, rubs, systolic murmur Pulses: PRESENT: normal dorsalis pedis pul Vascular exam: PRESENT: normal capillary refill Extremities exam: PRESENT: full ROM. ABSENT: calf tenderness, clubbing, pedal edema Neurological exam: PRESENT: alert, awake, oriented to person, oriented to place, oriented to time, oriented to situation, CN II-XII grossly intact. ABSENT: motor sensory deficit Psychiatric exam: PRESENT: appropriate affect, normal mood. ABSENT: homicidal ideation, suicidal ideation Skin exam: PRESENT: dry, intact, warm. ABSENT: cyanosis, rash Results Laboratory Results: 07/31/20 05:40 07/31/20 05:40 07/31/20 07/31/20 05:40 05:40 WBC 7.4 RBC 5.23 Hgb 14.3 Hct 43.2 MCV 83 MCH 27.3 MCHC 33.0 RDW 15.6 H Plt Count 106 L Sodium 143.8 Potassium 3.1 L Chloride 103 Carbon Dioxide 30 Anion Gap 11 BUN 9 Creatinine 0.93 Est GFR ( Amer) > 60 Glucose 110 Calcium 9.8 07/28/20 07/28/20 07/28/20 23:55 23:55 23:55 Creatine Kinase 26 L CK-MB (CK-2) 1.27 Troponin I 0.013 NT-Pro-B Natriuret Pep 371 07/29/20 07/29/20 06:33 12:36 Creatine Kinase CK-MB (CK-2) Troponin I 0.019 0.012 NT-Pro-B Natriuret Pep Impressions: Head CT 07/28/20 23:58 IMPRESSION: 1. No acute intracranial findings. 2. Chronic ischemic changes as on prior exam. Chest X-Ray 07/29/20 00:00 IMPRESSION: 1. Low lung volumes with compressive changes and minimal nonspecific patchy bibasilar opacities. 2. Stable appearance of the cardiac silhouette with stable positioning of cardiac pacer device. Head CTA 07/29/20 00:00 IMPRESSION: 1. Mild atherosclerosis 2. No significant stenosis of the cervical carotid or vertebral arteries. 3. No acute intracranial large vessel occlusion Neck CTA 07/29/20 00:00 IMPRESSION: 1. Mild atherosclerosis 2. No significant stenosis of the cervical carotid or vertebral arteries. 3. No acute intracranial large vessel occlusion Assessment and Plan - Diagnosis (1) Hypertensive emergency Is this a current diagnosis for this admission?: Yes Plan: On presentation patient's blood pressure was 212/117. Improved to 164/102 today. Has signs of endorgan damage, presenting with expressive aphasia, confusion and headache possibly due to hypertensive encephalopathy Patient denies chest pain and cardiac enzymes are negative x3; EKG shows paced rhythm Head CT was negative for acute findings. Allowed permissive hypertension x24 hours due to symptoms concerning for TIA/stroke Will now start to gradually decreased BP. Have resumed home dose Losartan 100 mg BID, Hydralazine 25 mg q8 hours, and HCTZ 25 mg daily. Start carvedilol 6.25 mg twice daily. Although the patient's heart rate is in the 60s, he is in a paced rhythm and therefore do not need to hold for bradycardia; discussed with nursing. IV Labetalol prn BP control. (2) Expressive aphasia Is this a current diagnosis for this admission?: Yes Plan: None noted today. A&Ox4. Patient presents with AMS with expressive aphasia; likely hypertensive encephalopathy as his symptoms are improved with better HTN control. Head CT without contrast showed no sign of intracranial bleeding but chronic ischemic changes were noted MRI could not be obtained due to the fact that patient has pacemaker CTA Head/Neck shows mild athersclerosis Audiogram pending. Admitted to [facility], continuous telemetry monitoring PT/OT and speech evaluation consults placed Continued him on aspirin, atorvastatin Obtain control of patient's HTN. (3) Coronary artery disease Is this a current diagnosis for this admission?: Yes Plan: Patient denies chest pain Now admitted with hypertensive emergency Troponin negative x3 EKG shows paced rhythm Will optimally control blood pressure Continue aspirin and high intensity statin (4) Hyperlipidemia Qualifiers: Hyperlipidemia type: unspecified Qualified Code(s): E78.5 - Hyperlipidemia, unspecified Is this a current diagnosis for this admission?: Yes Plan: Triglycerides 151, TChol 129, LDL 71, HDL 29 Continue atorvastatin 80 mg nightly Cardiac diet. (5) Hypothyroidism Is this a current diagnosis for this admission?: Yes Plan: TSH 1.84 Continue home dose levothyroxine (6) Paroxysmal atrial fibrillation Is this a current diagnosis for this admission?: Yes Plan: Status post pacemaker placement Currently not on anticoagulation Rate is well controlled Continue telemetry monitoring Have continued home medications (7) Type 2 diabetes mellitus Qualifiers: Diabetes mellitus residential insulin use: without superintendent [employer] use Is this a current diagnosis for this admission?: Yes Plan: Placed him on sliding scale insulin, hypoglycemia protocol and Accu-Cheks (8) History of CVA (cerebrovascular accident) Is this a current diagnosis for this admission?: Yes Plan: Continue aspirin and atorvastatin (9) Depression Is this a current diagnosis for this admission?: Yes Plan: Continue fluoxetine - Time Time Spent with patient: 35 or more minutes Medications reviewed and adjusted accordingly: Yes Anticipated Discharge Disposition: Home with Home Health Anticipated Discharge Timeframe: within 24 hours
[2020-07-31] MEDS ORDERED: DOCUSATE SODIUM 100 MG CAPSULE BTH_EAR ONE (12:30)
[2020-07-31 13:21] LABS: HEMATOCRIT 44.2 % (37.9-51.0); HEMOGLOBIN 14.7 g/dL (13.5-17.0); MEAN CORPUSCULAR HEMOGLOBIN 27.2 pg (27.0-33.4); MEAN CORPUSCULAR HGB CONC 33.2 g/dL (32.0-36.0); MEAN CORPUSCULAR VOLUME 82 fl (80-97); PLATELET COUNT 104 10^3/uL (150-450); RED BLOOD COUNT 5.39 10^6/uL (4.35-5.55); RED CELL DISTRIBUTION WIDTH 15.7 % (11.5-14.0); WHITE BLOOD COUNT 6.3 10^3/uL (4.0-10.5)
[2020-07-31] MEDS ORDERED: MAGNESIUM HYDROXIDE SUSP 30 ML UDCUP PO ONE (15:30)
[2020-07-31] MEDS: ATORVASTATIN CALCIUM 40 MG TABLET PO SCH (21:05)
[2020-07-31] MEDS: MELATONIN 3 MG TABLET PO SCH (21:05)
[2020-07-31] MEDS: CARVEDILOL 6.25 MG TABLET PO SCH (21:05)
[2020-07-31 23:04] LABS: APPEARANCE,URINE CLEAR; BILIRUBIN,URINE NEGATIVE (NEGATIVE); COLOR,URINE YELLOW; GLUCOSE, URINE NEGATIVE (NEGATIVE); KETONES,URINE NEGATIVE (NEGATIVE); LEUKOCYTE ESTERASE,URINE NEGATIVE (NEGATIVE); NITRITE,URINE NEGATIVE (NEGATIVE); PROTEIN,URINE NEGATIVE (NEGATIVE); URINE SPECIFIC GRAVITY 1.011; UROBILINOGEN,URINE NEGATIVE mg/dL (<2.0)
[2020-08-01] MEDS: LEVOTHYROXINE SODIUM 0.1 MG TABLET PO SCH (05:18)
[2020-08-01] MEDS: HYDRALAZINE HCL 25 MG TABLET PO SCH (05:18)
[2020-08-01] MEDS: GABAPENTIN 300 MG CAPSULE PO SCH (05:18)
[2020-08-01 05:43] LABS: ANION GAP 9 (5-19); BLOOD UREA NITROGEN 17 mg/dL (7-20); CALCIUM 9.6 mg/dL (8.4-10.2); CARBON DIOXIDE 28 mmol/L (22-30); CHLORIDE 107 mmol/L (98-107); GLUCOSE 114 mg/dL (75-110); POTASSIUM 3.6 mmol/L (3.6-5.0)
[2020-08-01] MEDS: TAMSULOSIN HCL 0.4 MG CAP.SR.24H PO SCH (09:58)
[2020-08-01] MEDS: HYDROCHLOROTHIAZIDE 25 MG TABLET PO SCH (09:59)
[2020-08-01] MEDS: FAMOTIDINE 20 MG TABLET PO SCH (09:59)
[2020-08-01] MEDS: ASPIRIN 325 MG TABLET PO SCH (09:59)
[2020-08-01] MEDS: PAROXETINE HCL 20 MG TABLET PO SCH (09:59)
[2020-08-01] MEDS: ENOXAPARIN SODIUM INJ 40 MG/0.4 ML DISP.SYRIN SUBCUT SCH (10:00)
[2020-08-01] MEDS: CARVEDILOL 6.25 MG TABLET PO SCH (10:00)
[2020-08-01] MEDS ORDERED: POLYETHYLENE GLYCOL 3350 POWDER 17 GM/1 PACKET PO SCH (10:00)
[2020-08-01] MEDS: CLOPIDOGREL BISULFATE 75 MG TABLET PO SCH (10:00)
[2020-08-01 12:14] VITALS: BP 145/65
[2020-08-01] MEDS: LOSARTAN POTASSIUM 50 MG TABLET PO SCH (12:54)
--- NOTE | 2020-08-02 12:56 | PDOC DISCHARGE SUMMARY ---
Impression - Admit/DC Date/PCP Admission Date/Primary Care Provider: 07/29/20 14:49 HOWARD CARSON NP Discharge Date: 08/01/20 - Discharge Diagnosis (1) Hypertensive emergency Is this a current diagnosis for this admission?: Yes (2) Expressive aphasia Is this a current diagnosis for this admission?: Yes (3) Coronary artery disease Is this a current diagnosis for this admission?: Yes (4) Hyperlipidemia Is this a current diagnosis for this admission?: Yes (5) Hypothyroidism Is this a current diagnosis for this admission?: Yes (6) Paroxysmal atrial fibrillation Is this a current diagnosis for this admission?: Yes (7) Type 2 diabetes mellitus Is this a current diagnosis for this admission?: Yes (8) History of CVA (cerebrovascular accident) Is this a current diagnosis for this admission?: Yes (9) Depression Is this a current diagnosis for this admission?: Yes - Additional Information Resuscitation Status: Full Code Discharge Diet: Diabetic Discharge Activity: Activity As Tolerated Referrals: HOWARD CARSON NP [Primary Care Provider] - 08/14/20 1:30 pm Prescriptions: Hydralazine HCl [Apresoline 25 mg Tablet] 25 mg PO Q8 #30 tablet Carvedilol [Coreg 6.25 mg Tablet] 6.25 mg PO Q12 #30 tablet Losartan Potassium [Cozaar 50 mg Tablet] 100 mg PO BID #30 Home Medications: Gabapentin [Neurontin 300 mg Capsule] 600 mg PO Q8 09/09/19 Hydrochlorothiazide [Hydrodiuril 25 mg Tablet] 25 mg PO QAM 09/09/19 Levothyroxine Sodium [Synthroid 0.1 mg Tablet] 0.1 mg PO Q6AM 09/09/19 Metformin HCl [Glucophage 500 mg Tablet] 1,000 mg PO TID 09/09/19 Paroxetine HCl [Paxil 20 mg Tablet] 20 mg PO DAILY 09/09/19 Propafenone HCl [Rythmol Sr] 225 mg PO Q8 09/09/19 Tamsulosin HCl [Flomax 0.4 mg Cap.sr] 0.8 mg PO DAILY 09/09/19 Acetaminophen/Diphenhydramine [Tylenol Pm Ex-Strength Caplet] 2 each PO QHS 07/30/20 Aspirin [Aspirin 325 mg Tablet] 325 mg PO DAILY PRN 07/30/20 Atorvastatin Calcium [Lipitor] 80 mg PO QHS 07/30/20 Potassium Chloride 10 meq PO DAILY 07/30/20 Carvedilol [Coreg 6.25 mg Tablet] 6.25 mg PO Q12 #30 tablet 08/01/20 Hydralazine HCl [Apresoline 25 mg Tablet] 25 mg PO Q8 #30 tablet 08/01/20 Losartan Potassium [Cozaar 50 mg Tablet] 100 mg PO BID #30 08/01/20 History of Present Illiness History of Present Illness: As per admitting HPI 07/29/2020 "VIKTORIA THOMAS is a 80 year old male with a history of CVA, hypertension, paroxysmal A. fib status post pacemaker placement, hypothyroidism, CAD, type 2 diabetes and depression was brought in via EMS for altered mental status. Patient follows command but due to expressive aphasia history is difficult to obtain. Most of history is from ER signout and chart review. Patient's last known to be not his baseline around 1830 on 07/28/2020 at which time he went to bed. Around 2200 this evening patient woke up to go to the bathroom and he was found to be altered speaking erratically and completely naked. He has multiple history of admission for TIA like symptoms with slurred speech and motor weakness which resolved. On arrival to the ED patient's blood pressure was elevated at 212/117 and per ED report, he had received labetalol. During my exam patient understands questions and follows commands but has expressive aphasia with difficulty of finding words. He reports that he has a headache and states that he feels better than the time he came in but denies chest pain, shortness of breath, blurring of vision. He is frustrated that he cannot put out words." Hospital Course Hospital Course: Hypertensive emergency On presentation patient's blood pressure was 212/117. Improved to 164/102 today. Has signs of endorgan damage, presenting with expressive aphasia, confusion and headache possibly due to hypertensive encephalopathy Patient denies chest pain and cardiac enzymes are negative x3; EKG shows paced rhythm Head CT was negative for acute findings. Allowed permissive hypertension x24 hours due to symptoms concerning for TIA/stroke Will now start to gradually decreased BP. Have resumed home dose Losartan 100 mg BID, Hydralazine 25 mg q8 hours, and HCTZ 25 mg daily. Started carvedilol 6.25 mg twice daily. Although the patient's heart rate is in the 60s, he is in a paced rhythm and therefore do not need to hold for bradycardia; discussed with nursing. IV Labetalol prn utilized for BP control. Expressive aphasia None noted today prior to discharge. A&Ox4. Patient presented with AMS with expressive aphasia; likely hypertensive encephalopathy as his symptoms are improved with better HTN control. Head CT without contrast showed no sign of intracranial bleeding but chronic ischemic changes were noted MRI could not be obtained due to the fact that patient has pacemaker CTA Head/Neck shows mild athersclerosis Audiogram pending. Admitted to [facility], continuous telemetry monitoring PT/OT and speech evaluation consulted, notes reviewed, appreciated recommendations. Patient has returned to baseline Continued him on aspirin, atorvastatin Obtain control of patient's HTN. Coronary artery disease Patient denies chest pain Now admitted with hypertensive emergency Troponin negative x3 EKG shows paced rhythm Will optimally control blood pressure Continue aspirin and high intensity statin Hyperlipidemia Triglycerides 151, TChol 129, LDL 71, HDL 29 Continue atorvastatin 80 mg nightly Cardiac diet. Hypothyroidism TSH 1.84 Continue home dose levothyroxine Paroxysmal atrial fibrillation Status post pacemaker placement Currently not on anticoagulation Rate is well controlled Continue telemetry monitoring Have continued home medications Physical Exam Vital Signs: Temp Pulse Resp BP Pulse Ox 97.4 F 60 18 145/65 H 99 08/01/20 12:30 08/01/20 12:30 08/01/20 12:30 08/01/20 12:30 08/01/20 12:30 Intake & Output 07/31/20 08/01/20 08/02/20 06:59 06:59 06:59 Intake Total 1497 2465 340 Output Total 1200 700 Balance 297 1765 340 Weight 111.5 kg 111.8 kg 111 kg Additional comments: General appearance: PRESENT: no acute distress, cooperative, hard of hearing, obese, well-developed, well-nourished Head exam: PRESENT: atraumatic, normocephalic Eye exam: PRESENT: conjunctiva pink, EOMI, PERRLA. ABSENT: scleral icterus Ear exam: PRESENT: other - Thick, dried cerumen noted bilaterally Mouth exam: PRESENT: moist, tongue midline Respiratory exam: PRESENT: clear to auscultation isaias, symmetrical, unlabored ABSENT: rales, rhonchi, wheezes Cardiovascular exam: PRESENT: RRR. ABSENT: diastolic murmur, rubs, systolic murmur Pulses: PRESENT: normal dorsalis pedis pul Vascular exam: PRESENT: normal capillary refill Extremities exam: PRESENT: full ROM. ABSENT: calf tenderness, clubbing, pedal edema Neurological exam: PRESENT: alert, awake, oriented to person, oriented to place, oriented to time, oriented to situation, CN II-XII grossly intact. ABSENT: motor sensory deficit Psychiatric exam: PRESENT: appropriate affect, normal mood. ABSENT: homicidal ideation, suicidal ideation Skin exam: PRESENT: dry, intact, warm. ABSENT: cyanosis, rash Results Laboratory Results: WBC 6.3 10^3/uL (4.0-10.5) 07/31/20 13:13 RBC 5.39 10^6/uL (4.35-5.55) 07/31/20 13:13 Hgb 14.7 g/dL (13.5-17.0) 07/31/20 13:13 Hct 44.2 % (37.9-51.0) 07/31/20 13:13 MCV 82 fl (80-97) 07/31/20 13:13 MCH 27.2 pg (27.0-33.4) 07/31/20 13:13 MCHC 33.2 g/dL (32.0-36.0) 07/31/20 13:13 RDW 15.7 % (11.5-14.0) H 07/31/20 13:13 Plt Count 104 10^3/uL (150-450) L 07/31/20 13:13 Lymph % (Auto) 27.5 % (13-45) 07/30/20 08:24 [place] % (Auto) 11.2 % (3-13) 07/30/20 08:24 Eos % (Auto) 6.1 % (0-6) H 07/30/20 08:24 Baso % (Auto) 0.7 % (0-2) 07/30/20 08:24 Absolute Neuts (auto) 3.3 10^3/uL (1.7-8.2) 07/30/20 08:24 Absolute Lymphs (auto) 1.7 10^3/uL (0.5-4.7) 07/30/20 08:24 Absolute Monos (auto) 0.7 10^3/uL (0.1-1.4) 07/30/20 08:24 Absolute Eos (auto) 0.4 10^3/uL (0.0-0.6) 07/30/20 08:24 Absolute Basos (auto) 0.0 10^3/uL (0.0-0.2) 07/30/20 08:24 Seg Neutrophils % 54.5 % (42-78) 07/30/20 08:24 PT 13.8 SEC (11.4-15.4) 07/28/20 23:55 INR 1.04 07/28/20 23:55 APTT 30.6 SEC (23.5-35.8) 07/28/20 23:55 Sodium 143.6 mmol/L (137-145) 08/01/20 04:30 Potassium 3.6 mmol/L (3.6-5.0) 08/01/20 04:30 Chloride 107 mmol/L (98-107) 08/01/20 04:30 Carbon Dioxide 28 mmol/L (22-30) 08/01/20 04:30 Anion Gap 9 (5-19) 08/01/20 04:30 BUN 17 mg/dL (7-20) 08/01/20 04:30 Creatinine 1.09 mg/dL (0.52-1.25) 08/01/20 04:30 Est GFR ( Amer) > 60 (>60) 08/01/20 04:30 Est GFR (MDRD) Non-Af > 60 (>60) 08/01/20 04:30 Glucose 114 mg/dL (75-110) H 08/01/20 04:30 POC Glucose 125 mg/dL (70-110) H 08/01/20 10:47 Lactic Acid 1.5 mmol/L (0.7-2.1) 07/29/20 00:53 Calcium 9.6 mg/dL (8.4-10.2) 08/01/20 04:30 Magnesium 2.2 mg/dL (1.6-2.3) 08/01/20 04:30 Total Bilirubin 0.5 mg/dL (0.2-1.3) 07/28/20 23:55 Direct Bilirubin 0.2 mg/dL (0.0-0.4) 07/28/20 23:55 Neonat Total Bilirubin Not Reportable 07/28/20 23:55 Neonat Direct Bilirubin Not Reportable 07/28/20 23:55 Neonat Indirect Bili Not Reportable 07/28/20 23:55 AST 20 U/L (17-59) 07/28/20 23:55 ALT 13 U/L (<50) 07/28/20 23:55 Alkaline Phosphatase 72 U/L (38-126) 07/28/20 23:55 Creatine Kinase 26 U/L (55-170) L 07/28/20 23:55 CK-MB (CK-2) 1.27 ng/mL (<4.55) 07/28/20 23:55 Troponin I 0.012 ng/mL 07/29/20 12:36 NT-Pro-B Natriuret Pep 371 pg/mL (<450) 07/28/20 23:55 Total Protein 7.8 g/dL (6.3-8.2) 07/28/20 23:55 Albumin 4.3 g/dL (3.5-5.0) 07/28/20 23:55 Triglycerides 151 mg/dL (<150) H 07/29/20 06:33 Cholesterol 129.20 mg/dL (0-200) 07/29/20 06:33 LDL Cholesterol Direct 71 mg/dL (<100) 07/29/20 06:33 VLDL Cholesterol 30.2 mg/dL (10-31) 07/29/20 06:33 HDL Cholesterol 29 mg/dL (>40) L 07/29/20 06:33 TSH 1.84 uIU/mL (0.47-4.68) 07/29/20 06:33 Urine Color YELLOW 07/31/20 22:50 Urine Appearance CLEAR 07/31/20 22:50 Urine pH 5.0 (5.0-9.0) 07/31/20 22:50 Ur Specific [place] 1.011 07/31/20 22:50 Urine Protein NEGATIVE mg/dL (NEGATIVE) 07/31/20 22:50 Urine Glucose (UA) NEGATIVE mg/dL (NEGATIVE) 07/31/20 22:50 Urine Ketones NEGATIVE mg/dL (NEGATIVE) 07/31/20 22:50 Urine Blood NEGATIVE (NEGATIVE) 07/31/20 22:50 Urine Nitrite NEGATIVE (NEGATIVE) 07/31/20 22:50 Urine Nitrite (Reflex) NEGATIVE (NEGATIVE) 07/29/20 03:12 Urine Bilirubin NEGATIVE (NEGATIVE) 07/31/20 22:50 Urine Urobilinogen NEGATIVE mg/dL (<2.0) 07/31/20 22:50 Ur Leukocyte Esterase NEGATIVE (NEGATIVE) 07/31/20 22:50 Leukocyte Esterase Rfl NEGATIVE (NEGATIVE) 07/29/20 03:12 Urine WBC (Auto) 0 /HPF 07/31/20 22:50 Urine RBC (Auto) 0 /HPF 07/31/20 22:50 U Hyaline Cast (Auto) 3 /LPF 07/31/20 22:50 Squamous Epi Cells Auto 1 /HPF 07/31/20 22:50 Urine Mucus (Auto) RARE /LPF 07/31/20 22:50 Urine Ascorbic Acid NEGATIVE (NEGATIVE) 07/31/20 22:50 07/28/20 07/28/20 07/29/20 23:55 23:55 06:33 CK-MB (CK-2) 1.27 Troponin I 0.013 0.019 NT-Pro-B Natriuret Pep 371 07/29/20 12:36 CK-MB (CK-2) Troponin I 0.012 NT-Pro-B Natriuret Pep Impressions: Head CT 07/28/20 23:58 IMPRESSION: 1. No acute intracranial findings. 2. Chronic ischemic changes as on prior exam. Chest X-Ray 07/29/20 00:00 IMPRESSION: 1. Low lung volumes with compressive changes and minimal nonspecific patchy bibasilar opacities. 2. Stable appearance of the cardiac silhouette with stable positioning of cardiac pacer device. Head CTA 07/29/20 00:00 IMPRESSION: 1. Mild atherosclerosis 2. No significant stenosis of the cervical carotid or vertebral arteries. 3. No acute intracranial large vessel occlusion Neck CTA 07/29/20 00:00 IMPRESSION: 1. Mild atherosclerosis 2. No significant stenosis of the cervical carotid or vertebral arteries. 3. No acute intracranial large vessel occlusion Plan Plan of Treatment: 1. Hypertensive emergency. Presentation your blood pressure was elevated 212/117. Improved with oral medications. -Continue home dose losartan 100 mg twice daily. (Take two 50mg tablets in the morning, 100mg total, and two 50mg tablets in the afternoon, 100mg total. That means take a total of 200mg daily). -Continue hydralazine 25 mg every 8 hours. I have sent a prescription to your pharmacy for this. -Continue hydrochlorothiazide 25 mg daily. -I have added carvedilol 6.25 mg twice daily. I have sent a prescription to your pharmacy for this. -Home health through the [place] is being organized for you. They will work to help you with taking your medications appropriately and monitoring your blood pressure. Time Spent: Greater than 30 Minutes Stroke Is this a Stroke Patient?: No Acute Heart Failure Is this a Heart Failure Patient?: No
== END 2020-08-01 13:25 | disposition home or self-care (01) | DRG 305 ==
LOC: ER 23:38 → EH 07-29 02:49 → INTOOBSV 07-29 02:49 → EH 07-29 08:34 → OBSVTOIN 07-29 14:49 → 3W 07-29 15:12 → 3S 07-30 04:51 → 4N 07-31 15:13
PROVIDERS: ADMIT Student in an Organized Health Care Education/Training Program; ATTEND Physician Assistant
DX: I16.1 Hypertensive emergency (principal); I67.4 Hypertensive encephalopathy; E87.6 Hypokalemia; I25.10 Atherosclerotic heart disease of native coronary artery without angina pectoris; I48.0 Paroxysmal atrial fibrillation; F32.9 Major depressive disorder, single episode, unspecified; R29.702 NIHSS score 2; R47.02 Dysphasia; E03.9 Hypothyroidism, unspecified; E78.5 Hyperlipidemia, unspecified; M19.90 Unspecified osteoarthritis, unspecified site; E11.9 Type 2 diabetes mellitus without complications; Z96.653 Presence of artificial knee joint, bilateral; Z95.0 Presence of cardiac pacemaker; Z86.73 Personal history of transient ischemic attack (TIA), and cerebral infarction without residual deficits; Z79.899 Other long term (current) drug therapy; Z90.49 Acquired absence of other specified parts of digestive tract; Z79.84 Long term (current) use of oral hypoglycemic drugs; Z79.82 Long term (current) use of aspirin; Z88.8 Allergy status to other drugs, medicaments and biological substances
CPT/HCPCS: 36415; 70450; 70496; 70498; 71045; 80048; 80053; 80061; 81001; 82550; 82553; 82962; 83605; 83735; 83880; 84443; 84484; 85025; 85027; 85610; 85730; 93005; 93010; 93306; 96374; 99285; J1650; J3490; J7030